=== PATIENT | male | born 1950 | race Caucasian/White ===

== ENCOUNTER → 2019-09-20 17:07 | Outpatient (CLI) | payer MEDICARE, SELFPAY ==
[2019-09-20 18:19] LABS: Add Manual Diff / Slide Review NO; Basophils Absolute Auto 0 /uL (0-100); Basophils Percent Auto 0.7 % (0-2); Eosinophils Absolute Auto 500 /uL (0-450); Eosinophils Percent Auto 7.5 % (2-4); Hematocrit 47.6 % (41-53); Hemoglobin 16.4 g/dL (13.5-17.5); Lymphocytes Absolute Auto 1700 /uL (1100-4500); Mean Corpuscular HGB Conc 34.4 % (30-36); Mean Corpuscular Hemoglobin 30.8 PG (26-34); Mean Corpuscular Volume 89.6 fL (80-100); Monocytes Absolute Auto 400 /uL (0-900); Monocytes Percent Auto 6.8 % (3-14); Neutrophils Absolute Auto 3400 /uL (1500-7000); Platelet Count 248 X10^3/uL (150-400); Red Blood Cell Count 5.31 X10^6/uL (4.5-5.9)
[2019-09-20 18:38] LABS: Alanine Aminotransferase 87 IU/L (<50); Albumin 4.7 g/dL (3.5-5.0); Albumin Globulin Ratio 1.5 (1.0-2.8); Alkaline Phosphatase 57 U/L (38-126); Aspartate Aminotransferase 49 IU/L (17-59); BUN Creatinine Ratio 22.7 (6-22); Bilirubin Total 0.7 mg/dL (0.2-1.3); Blood Urea Nitrogen 25 mg/dL (9-20); Carbon Dioxide 30 mmol/L (22-32); Chloride 97 mmol/L (98-107); Estimated Glomerular Filt Rate > 60.0 mL/min (>60); Globulin 3.2 g/dL (1.7-4.1); Glucose 111 mg/dL (80-110); HEMOLYSIS < 15 (0-50); Potassium 4.3 mmol/L (3.4-5.1); Sodium 137 mmol/L (137-145); Total Protein 7.9 g/dL (6.3-8.2)
== END ==
PROVIDERS: PCP Internal Medicine; Referring Provider Nurse Practitioner; Visit Provider Nurse Practitioner
DX: R25.2 Cramp and spasm (principal)
CPT/HCPCS: 36415; 80053; 85025

== ENCOUNTER → 2019-09-25 07:27 | Outpatient (CLI) | payer MEDICARE, SELFPAY ==
--- NOTE | 2019-09-25 07:29 | DI.US.S_ITS ---
PROCEDURE: US ABDOMEN LIMITED INDICATIONS: POssible R sided abd hernia TECHNIQUE: Real-time focused scanning was performed of the abdomen, with image documentation. COMPARISON: None. FINDINGS: Multiple grayscale images of the right abdomen were acquired focusing over the areas of patient symptoms involving the right flank and right lower quadrant. No suspicious mass lesions. No abdominal wall hernia is identified. The appendix was not visualized during imaging of the right lower quadrant. No free fluid or adenopathy. IMPRESSION: No sonographic abnormalities identified in the right flank or right lower quadrant to explain patient's symptoms. No abdominal wall herniations identified. Dictated by: Doroteo Alvarez M.D. on 09/25/2019 at 9:23 Approved by: Doroteo Alvarez M.D. on 09/25/2019 at 9:25
== END ==
PROVIDERS: PCP Internal Medicine; Referring Provider Nurse Practitioner; Visit Provider Nurse Practitioner
DX: K46.9 Unspecified abdominal hernia without obstruction or gangrene (principal)
CPT/HCPCS: 76705

== ENCOUNTER → 2019-10-04 07:01 | Outpatient (CLI) | payer MEDICARE, SELFPAY ==
[2019-10-04 09:00] LABS: Hemoglobin A1C% w Est Avg Glu 6.2 % (4.0-6.0)
[2019-10-04 09:01] LABS: Cholesterol 172 mg/dL (140-199); HDL Cholesterol 30 mg/dL (40-60); LDL Cholesterol Calculated 96 mg/dL (<100); Triglycerides 230 mg/dL (35-150)
== END ==
PROVIDERS: PCP Internal Medicine; Referring Provider Internal Medicine; Visit Provider Internal Medicine
DX: E11.9 Type 2 diabetes mellitus without complications (principal); E78.2 Mixed hyperlipidemia
CPT/HCPCS: 36415; 80061; 83036

== ENCOUNTER → 2020-03-09 11:40 | Outpatient (CLI) | payer MEDICARE, SELFPAY ==
[2020-03-10 21:17] LABS: COVID19 Sendout Not Detected (Not Detect)
== END ==
PROVIDERS: PCP Internal Medicine; Visit Provider Physician Assistant
DX: Z01.818 Encounter for other preprocedural examination (principal)
CPT/HCPCS: 87635

== ENCOUNTER 2020-03-12 09:58 | Day surgery (SDC) | payer MEDICARE, SELFPAY ==
--- NOTE | 2020-03-12 | PATH_ITS ---
[facility] Accession Number: [id number] . 01 Material submitted: . PART A: colon - ASCENDING COLON POLYPS PART B: colon - TRANSVERSE COLON POLYPS PART C: colon - DESCENDING COLON POLYP . 01 Clinical history: . A: ASCENDING COLON POLYPS X2 B: TRANSVERSE COLON POLYPS X2 . 02 Diagnosis: A. Ascending Colon, Polyps x2, Biopsies: Tubular adenomas. . B. Transverse Colon, Polyps x2, Biopsy: Tubular adenoma. Benign lymphoid aggregate. . C. Descending Colon, Polyp, Biopsy: Tubular adenoma. MRV 03/14/2020 1006 Local . 02 Electronically signed: . Gena Mike MD, Pathologist NPI- [id number] . 01 Gross description: . Part A: ASCENDING COLON POLYPS: Received in formalin are 2 fragment(s) of [place], soft tissue measuring 0.5 x 0.3 x 0.1 cm to 0.3 x 0.3 x 0.3 cm submitted entirely in 1 cassette(s) Part B: TRANSVERSE COLON POLYPS: Received in formalin are multiple fragment(s) of [place], soft tissue measuring 1.0 x 0.8 x 0.3 cm in aggregate submitted entirely in 1 cassette(s) Part C: DESCENDING COLON POLYP: Received in formalin are multiple fragment(s) of [place], soft tissue measuring 1.5 x 1.0 x 0.4 cm in aggregate submitted entirely in 1 cassette(s) /QB 03/13/2020 0812 Local . 02 Pathologist provided ICD-10: D12.2, D12.3, D12.4 . 02 CPT . 119778, 255840, 229746 Performed at: 01 [address] [address], [place], [place] [id number] MD Cortez Leon MD Phone: [phone] Performed at: 02 [facility] [address] [place] [id number] MD Gena Mike MD Phone: [phone]
--- NOTE | 2020-03-12 10:00 | P.HP_ITS ---
History of Present Illness History of Present Illness Date Patient Seen: 03/12/20 Chief complaint: SDC Narrative: Az[age]jbqgy[age]jqek-old male who is here for surveillance colonoscopy due to history of colon polyps. Prior colon report not available for review at this time. Colonoscopy was performed back in 2016 Meds Home Medications and Allergies Home Medications Medication Instructions Recorded Confirmed Type amlodipine PO 09/20/19 09/20/19 History aspirin 81 mg tablet,delayed 81 mg PO DAILY 09/20/19 09/20/19 History release cholecalciferol (vitamin D3) 50 2,000 unit PO DAILY 09/20/19 09/20/19 History mcg (2,000 unit) tablet hydrochlorothiazide PO 09/20/19 09/20/19 History lisinopril PO 09/20/19 09/20/19 History metoprolol tartrate PO 09/20/19 09/20/19 History multivitamin 1 tab PO DAILY 09/20/19 09/20/19 History omega-3 fatty acids PO 09/20/19 09/20/19 History omeprazole PO 09/20/19 09/20/19 History spironolactone PO 09/20/19 09/20/19 History terazosin PO 09/20/19 09/20/19 History cetirizine 10 mg PO DAILY 03/12/20 03/12/20 History magnesium 400 mg PO DAILY 03/12/20 03/12/20 History metformin 500 mg PO BID 03/12/20 03/12/20 History rosuvastatin 10 mg PO BEDTIME 03/12/20 03/12/20 History Allergies Allergy/AdvReac Type Severity Reaction Status Date / Time No Known Drug Allergies Allergy Verified 03/12/20 10:21 Exam Narrative Exam Narrative: General: Patient is obese, not in apparent distress Cardiovascular: Regular rate and rhythm, no murmurs, rubs, or gallops; no evidence of edema; no palpable abdominal aortic aneurysm Gastrointestinal: Normoactive bowel sounds, soft, nontender, nondistended, no re bound tenderness, no hepatosplenomegaly, no evidence of hernia Assessment & Plan Assessment & Plan narrative: 69-year-old male here for colon polyp surveillance. The patient is medically stable Regarding the procedure(s), the risks and potential complications, benefits, and alternatives (including not doing the procedure) were discussed with the patient. The risks include but are not limited to bleeding, splenic injury, infection, perforation which may require surgical intervention, missed lesions, and adverse reactions to sedative medicines. After a question and answer period, the patient agreed to proceed with the procedure(s) and gives informed consent.
[2020-03-12 10:28] VITALS: BP 137/74; PULSE 49; RESP 16; TEMP 36.6; O2SAT 96; BMI 28.8
[2020-03-12] MEDS: SODIUM CHLORIDE 0.9% 1,000 ML 70 ML IV (10:43)
--- NOTE | 2020-03-12 11:07 | P.OP.ENDO_ITS ---
Operative Date/Time/Diagnoses Date of procedure: 03/12/20 Procedure Notes Procedure in detail: Surgeon: Chaitanya Rooney MD Procedure: Colonoscopy with polypectomy Preoperative diagnosis: Colon polyp surveillance Postoperative diagnosis: Colon polyps x5, sigmoid diverticulosis, grade 1 internal hemorrhoids Medications: Conscious sedation using 4 mg IV of Midazolam and 100 mcg IV of Fentanyl Preanesthesia Assessment An H and P was performed/updated and the Px?s ASA class is 2. The procedure was discussed in detail with the patient. The potential risks and complications including infection, bleeding, missed lesions, perforation, need for surgery in case of perforation, prolonged hospital stay, and were explained. A brief question and answer period was allotted and once all questions were answered, informed consent was obtained. The patient was brought back to the procedure room and placed on standard monitoring. The patient?s vital signs were monitored continuously throughout the entire procedure. Prior to starting, a timeout was performed to confirm the patient?s identity, allergies, medications, and procedure. Procedure in detail The patient was placed in left lateral decubitus position and once adequate sedation was obtained a KAIDEN was performed. The digital rectal examination did not reveal any palpable lesions. The tip of the colonoscope was placed in the anal canal and advanced without difficulty all the way to the cecum which was identified by the appendiceal orifice and the ileocecal valve. Careful examination of all berg of the colon was performed with irrigation of any residual stool. In the ascending colon, there were 2 sessile polyps measuring 2 mm and were removed by means of cold Jumbo forceps with minimal bleeding. Resection and retrieval was complete. In the transverse colon there was a 6 mm sessile polyp which was removed by means of cold snare with minimal bleeding. Resection and retrieval was complete. There was also a 2 mm sessile polyp which was removed by means of cold Jumbo forceps with minimal bleeding. Resection and retrieval was complete In the descending colon, there was note of an 8 mm semi pedunculated polyp which was removed by means of cold snare with minimal bleeding. Resection and retrieval was complete. In the sigmoid colon there was note of few medium-sized diverticula Retroflexion was performed in the rectum which revealed grade 1 internal hemorrhoids The patient tolerated the procedure well and will be brought back to the recovery area to be discharged once criteria are met. The prep was judged to be good and adequate to identify polyps less than 5 mm. The withdrawal time was 14 minutes. The total physician intraservice time was 21 minutes. Complications There were no complications and estimated blood loss was minimal. Recommendations: Resume previous diet Continue outPx medications Follow up pathology results Repeat colonoscopy in 3 years. This may change depending on pathology results An emergency contact number was given to the patient for any complications r elated to the procedure
[2020-03-12] MEDS: MIDAZOLAM 5 MG/5 ML VIAL IV (11:10)
[2020-03-12] MEDS: fentaNYL 250 MCG/5 ML INJ IV (11:10)
[2020-03-12 11:34] VITALS: BP 113/80; PULSE 55; RESP 11; TEMP 35.9; O2SAT 94
[2020-03-12 11:38] VITALS: BP 118/79; PULSE 56; RESP 11; O2SAT 91
[2020-03-12 11:44] VITALS: BP 98/77; PULSE 52; RESP 11; O2SAT 92
[2020-03-12 11:50] VITALS: BP 125/82; PULSE 54; RESP 12; TEMP 36.1; O2SAT 96
--- NOTE | 2020-03-12 11:55 | SUR.PHASEII ---
Patient tolerates po. C/O gas pain.
[2020-03-12 11:57] VITALS: BP 120/84; PULSE 58; RESP 13; O2SAT 95
== END 2020-03-12 12:41 | disposition home or self-care (01) ==
PROVIDERS: PCP Internal Medicine; Referring Provider Internal Medicine Gastroenterology; Visit Provider Internal Medicine Gastroenterology
PROC: 0DJD8ZZ Inspection of Lower Intestinal Tract, Via Natural or Artificial Opening Endoscopic (ICD-10-PCS; CPT 45378; principal; 2020-03-12 11:00)
DX: Z12.11 Encounter for screening for malignant neoplasm of colon (principal); Z86.010 Personal history of colon polyps; K57.30 Diverticulosis of large intestine without perforation or abscess without bleeding; K64.0 First degree hemorrhoids; D12.2 Benign neoplasm of ascending colon; D12.3 Benign neoplasm of transverse colon; D12.4 Benign neoplasm of descending colon
CPT/HCPCS: 45385; 45380; J2250; J3010

== ENCOUNTER → 2020-10-01 14:32 | Outpatient (ROUT) | payer OTHER, SELFPAY ==
[2020-10-01 14:55] LABS: Add Manual Diff / Slide Review NO; Basophils Absolute Auto 0 /uL (0-100); Basophils Percent Auto 0.7 % (0-2); Eosinophils Absolute Auto 600 /uL (0-450); Hematocrit 47.1 % (41-53); Hemoglobin 16.5 g/dL (13.5-17.5); Lymphocytes Absolute Auto 1900 /uL (1100-4500); Lymphocytes Percent Auto 31.2 % (25-40); Mean Corpuscular Hemoglobin 31.7 PG (26-34); Mean Corpuscular Volume 90.4 fL (80-100); Monocytes Absolute Auto 400 /uL (0-900); Neutrophils Absolute Auto 3300 /uL (1500-7000); Neutrophils Percent Auto 52.1 % (50-75); Platelet Count 215 X10^3/uL (150-400); Red Blood Cell Count 5.21 X10^6/uL (4.5-5.9); White Blood Cell Count 6.2 X10^3/uL (4.5-11.0)
[2020-10-01 15:01] LABS: Alanine Aminotransferase 28 IU/L (<50); Albumin 4.4 g/dL (3.5-5.0); Albumin Globulin Ratio 1.6 (1.0-2.8); Alkaline Phosphatase 56 U/L (38-126); Aspartate Aminotransferase 25 IU/L (17-59); BUN Creatinine Ratio 18.8 (6-22); Bilirubin Total 0.7 mg/dL (0.2-1.3); Blood Urea Nitrogen 18 mg/dL (9-20); Calcium 9.4 mg/dL (8.4-10.2); Carbon Dioxide 30 mmol/L (22-32); Chloride 102 mmol/L (98-107); Cholesterol 198 mg/dL (140-199); Estimated Glomerular Filt Rate > 60.0 mL/min (>60); Globulin 2.7 g/dL (1.7-4.1); Glucose 113 mg/dL (80-110); HDL Cholesterol 31 mg/dL (40-60); HEMOLYSIS < 15 (0-50); Potassium 3.8 mmol/L (3.4-5.1); Sodium 138 mmol/L (137-145); Total Protein 7.1 g/dL (6.3-8.2); Triglycerides 423 mg/dL (35-150)
[2020-10-01 15:27] LABS: TSH w/ Reflex to FT4 1.35 uIU/mL (0.47-4.68)
== END ==
PROVIDERS: PCP Internal Medicine; Visit Provider Internal Medicine
DX: E11.69 Type 2 diabetes mellitus with other specified complication (principal); I10 Essential (primary) hypertension; E78.2 Mixed hyperlipidemia
CPT/HCPCS: 80053; 80061; 84443; 85025

== ENCOUNTER 2021-01-20 13:51 | Observation (INO) | payer OTHER, SELFPAY ==
[2021-01-20] VITALS (13 sets, daily range): BP systolic 137–160; BP diastolic 74–92; PULSE 58–67; RESP 8–20; TEMP 36.2–36.9; O2SAT 92–97; BMI 33.0
--- NOTE | 2021-01-20 14:02 | DI.RAD.S_ITS ---
PROCEDURE: XR CHEST 1V INDICATIONS: chest pain TECHNIQUE: One view of the chest was acquired. COMPARISON: None. FINDINGS: Surgical changes and devices: None. Lungs and pleura: Lungs are clear. No pleural effusions or pneumothorax. Mediastinum: Mediastinal contours appear normal. Heart size is normal. Bones and chest wall: No suspicious bony lesions. Overlying soft tissues appear unremarkable. IMPRESSION: No acute process. Dictated by: Lucy Bingham M.D. on 01/20/2021 at 14:17 Approved by: Lucy Bingham M.D. on 01/20/2021 at 14:17
[2021-01-20 14:21] LABS: Add Manual Diff / Slide Review NO; Basophils Absolute Auto 100 /uL (0-100); Basophils Percent Auto 0.8 % (0-2); Eosinophils Absolute Auto 500 /uL (0-450); Eosinophils Percent Auto 6.7 % (2-4); Hematocrit 47.7 % (41-53); Hemoglobin 16.6 g/dL (13.5-17.5); Lymphocytes Absolute Auto 1900 /uL (1100-4500); Lymphocytes Percent Auto 28.3 % (25-40); Mean Corpuscular HGB Conc 34.9 % (30-36); Mean Corpuscular Hemoglobin 31.2 PG (26-34); Mean Corpuscular Volume 89.5 fL (80-100); Monocytes Absolute Auto 400 /uL (0-900); Neutrophils Absolute Auto 4000 /uL (1500-7000); Neutrophils Percent Auto 58.2 % (50-75); Platelet Count 217 X10^3/uL (150-400); Red Blood Cell Count 5.33 X10^6/uL (4.5-5.9); Red Cell Distribution Width 13.7 % (11.6-14.8); White Blood Cell Count 6.9 X10^3/uL (4.5-11.0)
[2021-01-20 14:35] LABS: Alanine Aminotransferase 40 IU/L (<50); Albumin 4.3 g/dL (3.5-5.0); Albumin Globulin Ratio 1.5 (1.0-2.8); Alkaline Phosphatase 58 U/L (38-126); Aspartate Aminotransferase 35 IU/L (17-59); BUN Creatinine Ratio 19.1 (6-22); Bilirubin Total 0.6 mg/dL (0.2-1.3); Blood Urea Nitrogen 17 mg/dL (9-20); Calcium 9.4 mg/dL (8.4-10.2); Carbon Dioxide 27 mmol/L (22-32); Chloride 103 mmol/L (98-107); Creatine Kinase 305 U/L (55-170); Estimated Glomerular Filt Rate > 60.0 mL/min (>60); Globulin 2.9 g/dL (1.7-4.1); Glucose 147 mg/dL (80-110); HEMOLYSIS < 15 (0-50); Lipase 122 U/L (23-300); Sodium 139 mmol/L (137-145); Total Protein 7.2 g/dL (6.3-8.2)
[2021-01-20 14:50] LABS: CKMB % Relative Index 0.9 % (1.5-5.0); Creatine Kinase MB 2.63 ng/mL (<2.37)
--- NOTE | 2021-01-20 14:57 | ED_ITS ---
HPI - General Adult General Chief complaint: Dizziness Stated complaint: referred by for lightheadedness, numb L arm Time Seen by Provider: 01/20/21 14:04 Source: patient Mode of arrival: Ambulatory Limitations: no limitations History of Present Illness HPI narrative: Patient is a 70-year-old [id number] diabetic with a history of hypertension who is here for evaluation of feeling lightheaded and also tingling in his left shoulder and left arm. He states the symptoms have been consistent for the past 2 days. Not worse with palpation or movement or breathing. Is afebrile. No prior cardiac history that he knows of. Not on anticoagulation except for aspirin. Was instructed to come to the emergency department for further evaluation of his symptoms. Related Data Home Medications Medication Instructions Recorded Confirmed amlodipine 5 mg PO DAILY 09/20/19 03/12/20 aspirin 81 mg tablet,delayed 81 mg PO DAILY 09/20/19 03/12/20 release cholecalciferol (vitamin D3) 50 2,000 unit PO DAILY 09/20/19 03/12/20 mcg (2,000 unit) tablet hydrochlorothiazide 25 mg PO DAILY 09/20/19 03/12/20 lisinopril 40 mg PO DAILY 09/20/19 03/12/20 metoprolol tartrate 50 mg PO BID 09/20/19 03/12/20 multivitamin 1 tab PO DAILY 09/20/19 03/12/20 omega-3 fatty acids 1 cap PO DAILY 09/20/19 09/20/19 omeprazole 20 mg PO DAILY 09/20/19 03/12/20 spironolactone 25 mg PO DAILY 09/20/19 03/12/20 terazosin 2 mg PO DAILY 09/20/19 03/12/20 cetirizine 10 mg PO DAILY 03/12/20 03/12/20 magnesium 400 mg PO DAILY 03/12/20 03/12/20 metformin 500 mg PO BID 03/12/20 03/12/20 rosuvastatin 10 mg PO BEDTIME 03/12/20 03/12/20 Allergies Allergy/AdvReac Type Severity Reaction Status Date / Time No Known Drug Allergies Allergy Verified 03/12/20 10:21 Review of Systems Constitutional Constitutional: Denies fever(s) and Denies headache(s) ENT Ears, Nose, Mouth, and Throat: Denies headache(s) Cardiovascular Cardiovascular: Denies chest pain, Reports radiating jaw, neck or arm pain and Denies dyspnea Respiratory Respiratory: Denies cough and Denies dyspnea Gastrointestinal Gastrointestinal: Denies abdominal pain and Denies nausea Musculoskeletal Comments: Discomfort in left shoulder Integumentary/Breasts Skin/Breast: Denies rash Neurologic Neurologic: Denies headache(s) Comments: Discomfort left shoulder tingling left hand Hematologic/Lymphatic On Anticoagulants: No Allergic/Immunologic Allergic/Immunologic: Reports system reviewed and no additional complaints, except as documented Patient History Medical History Diabetes Hypertension Social History household members: spouse Smoking Status: Former smoker alcohol intake: current Smoking Status: Former smoker alcohol intake frequency: holidays/special occasions only Substance Use Type: does not use Exam Initial Vital Signs Initial Vital Signs: Vital Signs Pulse Rate 63 01/20/21 13:56 Respiratory Rate 18 01/20/21 13:56 Blood Pressure 160/84 H 01/20/21 13:56 Pulse Oximetry 97 01/20/21 13:56 Const General: cooperative Limitations: mental status not altered HENMT Head: normal to inspection and normocephalic Resp Effort & Inspection: normal respiratory effort Auscultation: clear to auscultation bilaterally Cardio Rate: regular rate Rhythm: regular rhythm Skin Lesions: no lesions Rashes: no rashes Neuro General: patient alert and patient awake Cognition: normal cognition Speech: speech normal Extrem General: capillary refill normal Psych Appearance: grossly normal and well kempt Scores GCS Bill coma scale eye opening: Spontaneous Bill coma scale verbal response: Orientated Independence coma scale motor response: Obey commands Independence coma scale total score: 15 HEART Score Heart Score history: Slightly Suspicious Heart Score EKG: Non-Specific repolarization disturbance Heart Score Age: > or = 65 years old Heart Score risk factors: 1-2 risk factors Heart Score troponin: < or = to normal limit Heart Score Total: 4 Course Orders Ordered: ED Orders 01/20/21 14:02 XR chest 1V Stat EKG-12 Lead Stat 01/20/21 14:13 Complete Blood Count AUTO DIFF Stat Comprehensive Metabolic Panel Stat Lipase Stat Troponin & CK Cardiac Panel Stat 01/20/21 15:50 COVID19 - ADMIT ([employer]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 swab/PCR) Stat Discontinued Medications Aspirin (Aspirin 81 Mg Chew Tab) 324 mg PO NOW ONE Stop: 01/20/21 15:09 Last Admin: 01/20/21 15:18 Dose: 324 mg Documented by: CTRCATRACHITO Vital Signs Vital signs: Vital Signs - 8 hr 01/20/21 13:56 01/20/21 14:22 01/20/21 14:30 Temperature Pulse Rate 63 65 63 Respiratory Rate 18 16 8 L Blood Pressure 160/84 H Pulse Oximetry 97 93 92 01/20/21 15:00 01/20/21 15:30 01/20/21 15:51 Temperature 98.5 F Pulse Rate 67 65 61 Respiratory Rate 16 17 14 Blood Pressure 150/74 H Pulse Oximetry 92 93 94 Medical Decision Making Lab Data Lab results reviewed: Yes I reviewed the patient's lab results. Result diagrams: 01/20/21 14:13 01/20/21 14:13 Labs: Lab Results 01/20/21 01/20/21 Range/Units 14:13 14:13 WBC 6.9 (4.5-11.0) X10^3/uL RBC 5.33 (4.5-5.9) X10^6/uL Hgb 16.6 (13.5-17.5) g/dL Hct 47.7 (41-53) % MCV 89.5 (80-100) fL MCH 31.2 (26-34) PG MCHC 34.9 (30-36) % RDW 13.7 (11.6-14.8) % Plt Count 217 (150-400) X10^3/uL Neut % (Auto) 58.2 (50-75) % Lymph % (Auto) 28.3 (25-40) % [place] % (Auto) 6.0 (3-14) % Eos % (Auto) 6.7 H (2-4) % Baso % (Auto) 0.8 (0-2) % Neut # (Auto) 4000 (8397-1646) /uL Lymph # (Auto) 1900 (0013-6706) /uL [place] # (Auto) 400 (0-900) /uL Eos # (Auto) 500 H (0-450) /uL Baso # (Auto) 100 (0-100) /uL Sodium 139 (137-145) mmol/L Potassium 4.0 (3.4-5.1) mmol/L Chloride 103 (98-107) mmol/L Carbon Dioxide 27 (22-32) mmol/L BUN 17 (9-20) mg/dL Creatinine 0.89 (0.66-1.25) mg/dL Estimated GFR > 60.0 (>60) mL/min BUN/Creatinine Ratio 19.1 (6-22) Glucose 147 H (80-110) mg/dL Calcium 9.4 (8.4-10.2) mg/dL Total Bilirubin 0.6 (0.2-1.3) mg/dL AST 35 (17-59) IU/L ALT 40 (<50) IU/L Alkaline Phosphatase 58 (38-126) U/L Total Creatine Kinase 305 H (55-170) U/L CK-MB (CK-2) 2.63 H (<2.37) ng/mL CK-MB (CK-2) Rel Index 0.9 L (1.5-5.0) % Troponin I 0.020 (0.01-0.034) ng/mL Total Protein 7.2 (6.3-8.2) g/dL Albumin 4.3 (3.5-5.0) g/dL Globulin 2.9 (1.7-4.1) g/dL Albumin/Globulin Ratio 1.5 (1.0-2.8) Lipase 122 (23-300) U/L Imaging Data Chest x-ray: Radiologist's Impression: [address] [id number] ReportSigned Patient: Shabbir Trent R#: [id number]: 1950cct:[id number]/Sex: 70 / MDate of Service: 01/20/21Loc: EDAccession Number: [id number] Procedure: XR chest 1V Ordering Provider: Syd Willingham D.O. PROCEDURE: XR CHEST 1V INDICATIONS: chest pain TECHNIQUE: One view of the chest was acquired. COMPARISON: None. FINDINGS: Surgical changes and devices: None. Lungs and pleura: Lungs are clear. No pleural effusions or pneumothorax. Mediastinum: Mediastinal contours appear normal. Heart size is normal. Bones and chest wall: No suspicious bony lesions. Overlying soft tissues appear unremarkable. IMPRESSION: No acute process. Dictated by: Lucy Bingham M.D. on 01/20/2021 at 14:17 Approved by: Lucy Bingham M.D. on 01/20/2021 at 14:17 ECG Data Attestation: I personally reviewed and interpreted this ECG as follows: Prior ECG tracings: not available for review Interpretation: Sinus rhythm Ventricular rate is 67 Left axis deviation Occasional PAC LVH Nonspecific ST T wave changes MDM Narrative Medical decision making narrative: Nonspecific changes on the EKG, troponin not above 99th percentile. Was given aspirin. Has a heart score 4. Discussed the case with the patient and hospitalist and will admit for risk stratification testing. They both expressed understanding and agreement. Discharge Plan Departure Patient Disposition: Admitted as Observation Clinical Impression: Lightheadedness, Hypertension
[2021-01-20] MEDS: ASPIRIN 81 MG CHEW TAB 324 MG PO (15:18)
--- NOTE | 2021-01-20 16:55 | DI.NM.S_ITS ---
PROCEDURE: NM SHANIQUA PERF SPECT SINGLE STUDY Exercise myocardial perfusion SPECT with gated imaging and ejection fraction RADIOPHARMACEUTICAL: 22.6 mCi Tc-99m sestamibi IV at peak exercise. INDICATIONS: chest pain TECHNIQUE: Radiopharmaceutical was injected at peak stress test. SPECT images were obtained, with perfusion images in short axis, horizontal long axis, and vertical long axis views. Gated images were reviewed using [employer] software. COMPARISON: None. CARDIAC STRESS: A standard Iain treadmill exercise tolerance test was performed by the patient under the supervision of an attending staff. The patient exercised for 7 minutes and 30 seconds; functional aerobic impairment (RAÚL) is -16%. Hemodynamic data: There is normal blood pressure and heart response to exercise. Patient achieved 88% of maximum predicted heart rate. Symptoms: Patient denied anginal chest pain during exercise. EKG: No diagnostic changes of ischemia; no ectopy. FINDINGS: Raw data: There is good labeling of myocardium by radiotracer. No significant motion artifacts. Left ventricular function: Gated images demonstrate normal left ventricle wall thickening. No segmental wall motion abnormalities. Left ventricle end diastolic volume is 143 mL. Left ventricle stress ejection fraction is 66%; normal values are above 45%. Myocardial perfusion: There is normal distribution of activity in the left and right ventricular myocardium, without focal perfusion defects. IMPRESSION: Low risk, normal treadmill stress only nuclear study. 1) No perfusion evidence of ischemia or infarction. 2) Normal left ventricular size, wall motion, and systolic function (EF post stress 66%). 3) No ECG evidence of ischemia. 4) No angina during the study. 5) Above average exercise tolerance (10.1 METs, RAÚL -16%). Target heart rate achieved. Appropriate BP response to exercise. 6) No prior nuclear stress test available for comparison. Dictated by: Felipa Pope MD on 01/21/2021 at 17:17 Approved by: Felipa Pope MD on 01/21/2021 at 17:19
[2021-01-20 17:11] LABS: COVID19 - ADMIT (NP swab/PCR) Negative (Negative)
--- NOTE | 2021-01-20 18:16 | P.HP_ITS ---
History of Present Illness History of Present Illness Date Patient Seen: 01/20/21 Time Patient Seen: 16:17 Chief complaint: referred by for lightheadedness, numb L arm Narrative: Mr. Trent is a 70M with PMH DM, HTN, HL who is coming in with left shoulder pain, lightheadedness, left arm and hand tingling. He states that this started two days ago. He has not had any shortness of breath. No upper or lower extremity weakness. No radiation of pain. No fevers/cough. No facial droop. No lower extremity edema. No nausea, vomiting, diarrhea. He notes he did use a mo wer to mow neighbors grass and he got very winded which is unlike him. He has had a remote stress test years ago, but nothing done recently. He is a former smoker but quit over twenty years ago. His dad has a history of CAD. In the ER, vitals were notable for hypertension with BP in 150s-160s. WBC 6.9, creatinine 0.89, trop 0.02. EKG showed LVH, nonspecific ST changes with no acute ischemia. Cxray with no acute process. He was given aspirin and admitted for further treatment. Patient History Medical History Diabetes Hypertension Family & Social History Family History Father Coronary artery disease Social History: household members spouse Prior Living Arrangements House Safety & Behavioral: Feels Safe in Current Yes Environment Been Physically Hurt or No Threatened By a Person Suicidal Ideation Description None Suicide Plan Description No Plan Tobacco & Substance use: Smoking Status Former smoker alcohol intake current alcohol intake frequency holiday/special occasion Substance Use Type does not use Meds Home Medications and Allergies Home Medications Medication Instructions Recorded Confirmed Type amlodipine 5 mg PO DAILY 09/20/19 01/20/21 History aspirin 81 mg tablet,delayed 81 mg PO DAILY 09/20/19 01/20/21 History release cholecalciferol (vitamin D3) 50 2,000 unit PO DAILY 09/20/19 01/20/21 History mcg (2,000 unit) tablet hydrochlorothiazide 25 mg PO DAILY 09/20/19 01/20/21 History lisinopril 40 mg PO DAILY 09/20/19 01/20/21 History metoprolol tartrate 50 mg PO BID 09/20/19 01/20/21 History multivitamin 1 tab PO DAILY 09/20/19 01/20/21 History omega-3 fatty acids 1 cap PO DAILY 09/20/19 01/20/21 History omeprazole 20 mg PO BID 09/20/19 01/20/21 History spironolactone 25 mg PO DAILY 09/20/19 01/20/21 History terazosin 2 mg PO DAILY 09/20/19 01/20/21 History cetirizine 10 mg PO DAILY 03/12/20 01/20/21 History magnesium 400 mg PO DAILY 03/12/20 01/20/21 History rosuvastatin 10 mg PO BEDTIME 03/12/20 01/20/21 History Allergies Allergy/AdvReac Type Severity Reaction Status Date / Time No Known Drug Allergies Allergy Verified 03/12/20 10:21 Review of Systems Review of Systems Narrative: 14 systems reviewed and negative aside from what is noted in HPI Exam Vital Signs (past 8 hours): - 01/20/21 13:56 01/20/21 14:22 01/20/21 14:30 Temperature Pulse Rate 63 65 63 Respiratory Rate 18 16 8 L Blood Pressure 160/84 H Pulse Oximetry 97 93 92 01/20/21 15:00 01/20/21 15:30 01/20/21 15:51 Temperature 98.5 F Pulse Rate 67 65 61 Respiratory Rate 16 17 14 Blood Pressure 150/74 H Pulse Oximetry 92 93 94 01/20/21 16:00 01/20/21 16:30 01/20/21 16:55 Temperature 97.1 F L Pulse Rate 63 60 61 Respiratory Rate 20 17 20 Blood Pressure 137/90 Pulse Oximetry 94 92 93 01/20/21 16:56 Temperature Pulse Rate 58 L Respiratory Rate 18 Blood Pressure 137/84 Pulse Oximetry 93 Oxygen Delivery Method Room Air Oxygen Flow Rate 0 Narrative Exam Narrative: GEN: no acute distress HEENT: PERRL, moist mucous membranes NECK: no JVD, trachea midline CV: RRR, no murmurs PULM: clear bilaterally, no wheezes, rhonchi, rales ABD: soft, nontender, nondistended, no organomegaly, normal bowel sounds EXT: warm and well perfused with no edema NEURO: AAOx3, moving all extremities with no gross deficits SKIN: no rashes noted PSYCH: pleasant, cooperative Objective Labs Result Diagrams: 01/20/21 14:13 01/20/21 14:13 Labs: Laboratory Results - last 24 hr 01/20/21 01/20/21 01/20/21 14:13 14:13 15:54 WBC 6.9 RBC 5.33 Hgb 16.6 Hct 47.7 MCV 89.5 MCH 31.2 MCHC 34.9 RDW 13.7 Plt Count 217 Neut % (Auto) 58.2 Lymph % (Auto) 28.3 [place] % (Auto) 6.0 Eos % (Auto) 6.7 H Baso % (Auto) 0.8 Neut # (Auto) 4000 Lymph # (Auto) 1900 [place] # (Auto) 400 Eos # (Auto) 500 H Baso # (Auto) 100 Sodium 139 Potassium 4.0 Chloride 103 Carbon Dioxide 27 BUN 17 Creatinine 0.89 Estimated GFR > 60.0 BUN/Creatinine Ratio 19.1 Glucose 147 H Calcium 9.4 Total Bilirubin 0.6 AST 35 ALT 40 Alkaline Phosphatase 58 Total Creatine Kinase 305 H CK-MB (CK-2) 2.63 H CK-MB (CK-2) Rel Index 0.9 L Troponin I 0.020 Total Protein 7.2 Albumin 4.3 Globulin 2.9 Albumin/Globulin Ratio 1.5 Lipase 122 SARS-CoV-2 (PCR) Negative Assessment & Plan Assessment & Plan narrative: Mr. Trent is a 70M with PMH DM, HTN, HL who comes in with left shoulder pain, dizziness, left hand numbness concerning for possible cardiac etiology. 1. Left shoulder pain -also with associated dizziness, and left hand numbness -EKG with nonspecific ST changes, no acute ischemia -etiology is possibly cardiac with HEART score of 4 -other etiology is possible MSK, though this is not like his previous shoulder pain -given poor exercise tolerance that is new, will order echo -ordered for troponin trending -aspirin and statin ordered -plan for stress test in AM -lightheadedness may be seconary to medications, will hold diuretics for tonight 2. Diabetes, not on insulin -ordered low dose insulin sliding scale -check glucose achs 3. HTN -continue lisinopril, amlodipine -hold hctz, spironolactone for now -hold metoprolol for nuc stress test 4. HL -ordered atorvastatin as above DVT ppx: lovenox sc DIET: cardiac, diabetic IVF: none CODE: Full, proxy is spouse Edna Page VTE Deep Vein Thrombosis/Pulmonary Embolism Present on Admission: No MIPS - Admit I confirm the patient?s Advance Care Plan is present, Code status is documented, Surrogate decision maker is in patient?s record [If Yes, STOP here]: Yes
--- NOTE | 2021-01-20 18:19 | DI.ECHO.S_ITS ---
[facility] +---------+ [facility] +---------+ : : [address] : : : : [id number] : : : : Phone: [phone] Echocardiogram Report + + :Name: DANI ALONSO Study Date: 01/21/2021 Height: 70 in : :[facility] ReadingLocation: Weight: 230 lb : : Gender: Male BSA: 2.2 m2 : :: 1950 Age: 70 yrs BP: 137/84 mmHg: :Reason For Study: SHORTNESS OF BREATH : :Ordering Physician: DELMAR, : :NEDRA Performed By: Monalisa Yip : :Referring: NEDRA JACOBSEN : + + Interpretation Summary The left ventricle is normal in size. The ejection fraction is estimated to be 55-60%. Diastolic parameters suggest a relaxation abnormality of the left ventricle, consistent with probable normal filling pressures. Cannot rule out hypokinesis along the inferolateral wall. There appears to be appropriate augmentation of myocardium on parasternal short axis but 3-apical views show possible hypokinesis. Consider ischemic evaluation if clinically appropriate The right ventricle is grossly normal size. The right ventricular systolic function is normal. Pulmonary artery pressures cannot be estimated because of the lack of a measurable TR jet velocity but the IVC suggests a CVP of around 3 mmHg. The left atrial size is normal. Right atrial size is normal. . There is no significant valvular heart disease. The aortic root is mildly dilated. The ascending aorta is mildly enlarged. Procedure: A two-dimensional transthoracic echocardiogram with color flow and Doppler was performed. The study quality was technically adequate. There is no prior echocardiogram noted for this patient. The patient was in sinus rhythm with heart rates between 56-66 bpm during the exam. Left Ventricle: The left ventricle is normal in size. There is mild concentric left ventricular hypertrophy. Left ventricular systolic function is normal. The ejection fraction is estimated to be 55-60%. Cannot rule out hypokinesis along the inferolateral wall. There appears to be appropriate augmentation of myocardium on parasternal short axis but 3-apical views show possible hypokinesis. Consider ischemic evaluation if clinically appropriate. Diastolic parameters suggest a relaxation abnormality of the left ventricle, consistent with probable normal filling pressures. Right Ventricle: The right ventricle is grossly normal size. The right ventricular systolic function is normal. Atria: The left atrial size is normal. Right atrial size is normal. There is no Doppler evidence for an interatrial shunt. Mitral Valve: The mitral valve is normal in structure and function. There is trace mitral regurgitation. Aortic Valve: The aortic valve is trileaflet. The aortic valve opens well. There is no aortic valve stenosis. No aortic regurgitation is present. Tricuspid Valve: The tricuspid valve is normal in structure and function. Pulmonary artery pressures cannot be estimated because of the lack of a measurable TR jet velocity but the IVC suggests a CVP of around 3 mmHg. There is trace tricuspid regurgitation. Pulmonic Valve: The pulmonic valve leaflets are thin and pliable; valve motion is normal. There is mild pulmonic regurgitation. There is no significant valvular heart disease. Great Vessels: The aortic root is mildly dilated. The ascending aorta is mildly enlarged. The IVC is of normal diameter and collapses greater than 50% with a sniff. This suggests a low right atrial pressure of 3 mm Hg. Pericardium/ Pleura There is no pericardial effusion. There is no pleural effusion. MMode/2D Measurements & Calculations LVIDd: 5.5 cm LVOT diam: 2.1 cm LVIDs: 3.9 cm Ao root diam: 4.1 cm FS: 28.8 % asc Aorta Diam: 3.7 cm EPSS: 1.0 cm Ao Arch Diam (Prox Trans): 2.9 cm IVSd: 1.1 cm LVPWd: 1.2 cm LV gonsalez. diameter/BSA (cm/m^2): 2.5 LV sys. diameter/BSA (cm/m^2): 1.8 LA A2 area: 20.7 cm2 RA long axis: 5.6 cm LA A4 area: 16.2 cm2 RA area: 13.4 cm2 LA length (vol): 5.1 cm RA vol: 27.5 ml LA vol: 56.4 ml RA : 12.4 ml/m2 LA vol index: 25.5 ml/m2 IVC diam: 1.8 cm RVD1 (basal): 4.0 cm TAPSE: 1.9 cm Doppler Measurements & Calculations Ao V2 max: 141.0 cm/sec LVOT Max Francisco: 102.1 cm/sec Ao V2 mean: 100.9 cm/sec LV V1 max P.2 mmHg Ao max P.0 mmHg LV V1 VTI: 21.5 cm Ao mean P.6 mmHg RENETTA(I,D): 2.5 cm2 Ao V2 VTI: 29.3 cm RENETTA(V,D): 2.5 cm2 sev ratio: 0.73 RENETTA indexed to BSA (cm^2/m^2): 1.1 MV E max francisco: 42.0 cm/sec PA V2 max: 128.4 cm/sec MV A max francisco: 72.2 cm/sec PA V2 mean: 90.1 cm/sec MV E/A: 0.58 PA mean P.6 mmHg Med Peak E' Francisco: 4.0 cm/sec PA pr(Accel): 29.2 mmHg E/E' med: 10.5 Lat Peak E' Francisco: 4.9 cm/sec E/E' lat: 8.5 E/e' average: 9.5 MV dec time: 0.32 sec SV(LVOT): 73.6 ml Reading Physician:08:58 AM
[2021-01-20 20:39] LABS: Troponin I 0.018 ng/mL (0.01-0.034)
[2021-01-20] MEDS: PANTOPRAZOLE DR 20 MG TABLET PO (21:40)
[2021-01-20] MEDS: ATORVASTATIN 20 MG TABLET 40 MG PO (21:40)
[2021-01-21 04:46] VITALS: BP 147/84; PULSE 70; RESP 16; TEMP 36.1; O2SAT 93
[2021-01-21] MEDS: PANTOPRAZOLE DR 20 MG TABLET PO (05:23)
[2021-01-21 05:28] LABS: Add Manual Diff / Slide Review NO; Basophils Absolute Auto 100 /uL (0-100); Basophils Percent Auto 0.7 % (0-2); Eosinophils Absolute Auto 500 /uL (0-450); Eosinophils Percent Auto 7.5 % (2-4); Hematocrit 49.4 % (41-53); Lymphocytes Absolute Auto 2400 /uL (1100-4500); Lymphocytes Percent Auto 34.6 % (25-40); Mean Corpuscular HGB Conc 34.4 % (30-36); Mean Corpuscular Hemoglobin 31.2 PG (26-34); Mean Corpuscular Volume 90.9 fL (80-100); Monocytes Absolute Auto 400 /uL (0-900); Monocytes Percent Auto 5.9 % (3-14); Neutrophils Absolute Auto 3600 /uL (1500-7000); Neutrophils Percent Auto 51.3 % (50-75); Platelet Count 211 X10^3/uL (150-400); Red Blood Cell Count 5.44 X10^6/uL (4.5-5.9); Red Cell Distribution Width 13.3 % (11.6-14.8); White Blood Cell Count 7.1 X10^3/uL (4.5-11.0)
[2021-01-21 05:40] LABS: BUN Creatinine Ratio 16.5 (6-22); Blood Urea Nitrogen 17 mg/dL (9-20); Calcium 9.6 mg/dL (8.4-10.2); Carbon Dioxide 32 mmol/L (22-32); Chloride 100 mmol/L (98-107); Estimated Glomerular Filt Rate > 60.0 mL/min (>60); Glucose 124 mg/dL (80-110); HEMOLYSIS < 15 (0-50); Potassium 3.8 mmol/L (3.4-5.1); Sodium 139 mmol/L (137-145)
[2021-01-21 05:52] LABS: Troponin I 0.019 ng/mL (0.01-0.034)
[2021-01-21 07:50] VITALS: O2SAT 92
[2021-01-21 08:03] VITALS: BP 133/86; PULSE 66; RESP 16; TEMP 36.2; O2SAT 93
[2021-01-21] MEDS: ASPIRIN EC 81 MG TABLET PO (08:42)
[2021-01-21] MEDS: LORATADINE 10 MG TABLET PO (08:43)
[2021-01-21] MEDS: lisinopriL 20 MG TABLET 40 MG PO (08:43)
[2021-01-21] MEDS: MULTIVITAMIN 1 TABLET 1 TAB PO (08:43)
[2021-01-21] MEDS: CHOLECALCIFEROL (VITAMIN D3) 1,000 UNIT TABLET 2000 UNIT PO (08:43)
[2021-01-21] MEDS: AMLODIPINE 5 MG TABLET PO (08:43)
[2021-01-21] MEDS: TERAZOSIN 1 MG CAPSULE 2 MG PO (09:02)
[2021-01-21] MEDS: SODIUM CHLORIDE 0.9% FLUSH 10 ML IV (09:03)
--- NOTE | 2021-01-21 10:29 | CM.DANOTE ---
DCP: Case received, EMR reviewed and met with patient. Introduced self and role. Was able to obtain information from patient regarding his baseline activity status prior to hospitalization. DCP assessment completed with information currently available. Patient is a 70 year old male who admitted yesterday afternoon to the care of the hospitalist team. PCP: Dr. Mena. Payer: confirmed: [facility]. Patient came to the hospital via private vehicle secondary to having some lightheadedness, as well as some numbness and tingling to his left arm, along with pain. Patient is here for a cardiac work up. His EKG noted no ischemia. He is going to have a stress test today, which is scheduled. Patient also had echo. Met with patient in his room, as well as during team rounds. He is alert and oriented, pleasant. He stated, the symptoms were resolving. Patient resides here in [place] with his spouse, Edna. He is independent at his baseline, drives, uses no DME. P: DCP to continue to follow. Plan is for patient to go home today, but will depend upon stress test results. Alize Fisher RN/Parenting Skills Instructor
[2021-01-21 11:26] VITALS: BP 141/79; PULSE 87; RESP 16; TEMP 36.1; O2SAT 92
--- NOTE | 2021-01-21 15:23 | PC.NURSE ---
There was some confusion over pt's blood glucose this am. Blood sugar check was not passed along to PROOF OPERATOR. Glucose was checked after pt had eaten bkft. The results were 149. He doesn't usually take insulin. And after his bkft he was npo for stress test. Therefore his ssc was not given. Pt returned from stress test and glucose checked and was 96 before eating a small amt for a late lunch.
[2021-01-21 15:39] VITALS: BP 149/93; PULSE 100; RESP 17; TEMP 36.4; O2SAT 91
--- NOTE | 2021-01-21 15:45 | PC.NURSE ---
Addendum entered by Corina Ambrose R.N. 01/21/21 18:21: Pt dresses self and telemetry and iv discontinued. Spouse has arrived to transport pt and receive discharge instructions. Pt and pt's spouse were given discharge instructions in written and verbal format. All personal belongings are accounted for. Pt prefers to ambulate to vehicle and was accompanied by this proposal writer and by pt's S.O. Pt left hospital in stable condition. Addendum entered by Corina Ambrose R.N. 01/21/21 17:08: Dr. Schumacher in to see patient and discuss findings of stress test. Discussion between this proposal writer and MD if pt is required to have part two of this exam and MD replies is not needed as stress portion today was benign. Pt taking evening meal well prior to discharge. Spouse has left the building to attend to animals at home. Will discharge pt as per MD when spouse returns to room and pt completes meal. Original Note: Pt resting quietly in bed with spouse at bedside. 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 Pt denies chest pain. States is hopeful will be discharged to home this evening. Awaiting directive from MD.
[2021-01-21] MEDS: INSULIN LISPRO 100 UNIT/ML 3ML VIAL SUBCUT (16:45)
--- NOTE | 2021-01-21 18:39 | PM.DS.1 ---
History of Present Illness History of Present Illness Chief complaint: referred by for lightheadedness, numb L arm Narrative: Mr. Trent is a 70M with PMH DM, HTN, HL who is coming in with left shoulder pain, lightheadedness, left arm and hand tingling. He states that this started two days ago. He has not had any shortness of breath. No upper or lower extremity weakness. No radiation of pain. No fevers/cough. No facial droop. No lower extremity edema. No nausea, vomiting, diarrhea. He notes he did use a mower to mow neighbors grass and he got very winded which is unlike him. He has had a remote stress test years ago, but nothing done recently. He is a former smoker but quit over twenty years ago. His dad has a history of CAD. In the ER, vitals were notable for hypertension with BP in 150s-160s. WBC 6.9, creatinine 0.89, trop 0.02. EKG showed LVH, nonspecific ST changes with no acute ischemia. Cxray with no acute process. He was given aspirin and admitted for further treatment. Discharge Providers Provider Date of admission: 01/20/21 16:43 Discharge Date: 01/21/21 Primary care physician: Luis Mena MD Discharge provider: Brandon Schumacher MD Summary Hospital Course Discharge Diagnosis: 1. Left shoulder pain 2. Diabetes 3. HTN 4. HL Hospital Course: Mr. Trent presented with left shoulder pain and left hand numbness. He had negative troponins. EKG showed no ischemic changes. ECHO showed no acute abnormalities. He had a stress test that showed no reversible ischemia. His pain is more likely to be MSK and he should follow up with his PCP to make sure this resolves. Exam Vital Signs (past 8 hours): Oxygen Delivery Method Room Air Oxygen Flow Rate 0 Narrative Exam Narrative: GEN: no acute distress HEENT: PERRL, moist mucous membranes NECK: no JVD, trachea midline CV: RRR, no murmurs PULM: clear bilaterally, no wheezes, rhonchi, rales ABD: soft, nontender, nondistended, no organomegaly, normal bowel sounds EXT: warm and well perfused with no edema NEURO: AAOx3, moving all extremities with no gross deficits SKIN: no rashes noted PSYCH: pleasant, cooperative Objective Labs Result Diagrams: 01/21/21 04:50 06/09/21 04:50 [facility] Medical History Diabetes Hypertension Family History Father Coronary artery disease Social History household members: spouse Smoking Status: Former smoker alcohol intake: current Discharge Plan Discharge Plan Patient Disposition: Home Provider Discharge Comment: Mr. Trent came in with dizziness, left shoulder pain that was down to numbness in his left arm. He had cardiac testing done that showed no heart attack. He had no abnormal heart rhythm on monitor. His ECHO of his heart showed a normal strength heart with valve disease. His stress test showed no concerning findings. The shoulder pain is likely a muscle or pinched nerve and you can take pain medications for this and follow up with your primary care doctor. If you have dizziness please follow up with your primary care doctor as that can be a side effect of multiple of your medications, and you may be recommended to stop or change one or more of them. Discharge orders & Medications Prescriptions: Continued amlodipine 5 mg PO DAILY RF: 0 metoprolol tartrate 50 mg PO BID RF: 0 hydrochlorothiazide 25 mg PO DAILY RF: 0 lisinopril 40 mg PO DAILY RF: 0 terazosin 2 mg PO DAILY RF: 0 omeprazole 20 mg PO BID RF: 0 spironolactone 25 mg PO DAILY RF: 0 omega-3 fatty acids 1 cap PO DAILY RF: 0 cholecalciferol (vitamin D3) 2,000 unit tablet 2,000 unit PO DAILY RF: 0 aspirin [Adult Aspirin Regimen] 81 mg tablet,delayed release (DR/EC) 81 mg PO DAILY RF: 0 multivitamin Tablet 1 tab PO DAILY RF: 0 cetirizine 10 mg Tablet 10 mg PO DAILY RF: 0 magnesium 200 mg Tablet 400 mg PO DAILY RF: 0 rosuvastatin 10 mg tablet 10 mg PO BEDTIME RF: 0 Follow up/Referrals: Luis Mena MD [Primary Care Provider] - Diet/Activity/Treatments Diet: Low-fat and Low-cholesterol Discharge Data Primary Care Provider: Luis Mena V Attending Provider: Brandon Schumacher VTE Deep Vein Thrombosis/Pulmonary Embolism Present on Admission: No MIPS - DC The patient has current or prior documentation of left ventricular ejection fraction (LVEF) less than 40%, or moderate or severely depressed left ventricular systolic function.: No
== END 2021-01-21 18:00 | disposition home or self-care (01) ==
LOC: ED 15:51 → AC 16:44
PROVIDERS: Admitting Provider Internal Medicine; Emergency Provider Emergency Medicine; PCP Internal Medicine; Referring Provider Emergency Medicine; Visit Provider Internal Medicine
DX: R07.9 Chest pain, unspecified (principal); R42 Dizziness and giddiness; R20.0 Anesthesia of skin; E78.5 Hyperlipidemia, unspecified; I10 Essential (primary) hypertension; Z79.84 Long term (current) use of oral hypoglycemic drugs; E11.9 Type 2 diabetes mellitus without complications; Z79.82 Long term (current) use of aspirin; Z20.822 Contact with and (suspected) exposure to COVID-19
CPT/HCPCS: 36415; 71045; 78451; 80048; 80053; 82550; 82553; 82962; 83690; 84484; 85025; 87635; 93005; 93017; 93306; 96372; 99284; C9803; G0378; A9502; J1815

== ENCOUNTER → 2021-12-02 11:27 | Outpatient (CLI) | payer MEDICARE, SELFPAY ==
[2021-11-16 13:32] VITALS: BMI 33.0
--- NOTE | 2021-12-02 11:29 | DI.MRI.S_ITS ---
PROCEDURE: MR PELIS WO/W CON INDICATIONS: Elevated PSA prostate nodule rule out cancer TECHNIQUE: Coronal HASTE, axial T1 FSE with fat saturation, 3-plane nonbreath-hold T2 FSE. After the administration of contrast, dynamic axial, delayed axial and coronal VIBE or 2-D FLASH with fat saturation through the pelvis. Optional diffusion weighted imaging and ADC may be performed. COMPARISON: None. FINDINGS: Image quality: Diffusion weighted and dynamic contrast enhanced images are diagnostic. Prostate: Gland size is 7.3 x 7.3 by 4.9 cm; ellipsoid gland volume is 135.8 mL. There is nodular hypertrophy of the transition zone Lesion size(s): Lesion 1: 2.5 cm in AP diameter. Lesion 2: 1.8 cm in oblique transverse diameter. Lesion location(s) (sector): Lesion 1: Right lateral transition zone near the apex Lesion 2: Left posteromedial peripheral zone at the gland base. Lesion description: Lesion 1: Irregular lesion with indistinct margins. No extraprostatic extension. Lesion 2: Irregular with indistinct margins. No extraprostatic extension. T2 weighted imaging (T2WI) morphology score: Lesion 1: Three Lesion 2: Three Diffusion weighted imaging (DWI) morphology score: Lesion 1: Three Lesion 2: Three Dynamic contrast enhancement (DCE): Lesion 1: Absent Lesion 2: Absent Lesion PI-RADS score: Lesion 1: PI-RADS three Lesion 2: PI-RADS three Genitourinary system: Bladder wall thickness is normal. Distal ureters are non distended. Bowel and peritoneum: No pathologic free pelvic fluid. Inferior colon and small bowel loops are normal in caliber. Nodes and vessels: No pelvic or inguinal adenopathy by size criteria. Right common iliac artery ectasia and left common iliac artery aneurysm measuring 2.9 cm in diameter. Soft tissues: No inguinal hernias. Artifact of prior right inguinal hernia repair. Bones: Marrow demonstrates normal overall signal, without lesions to suggest metastases. IMPRESSION: 1. Enlarged prostate gland with BPH morphology. 2. There are two PI-RADS three lesions in the prostate gland as described. 3. Left common iliac artery aneurysm. Dictated by: Nadine Stanley M.D. on 12/02/2021 at 15:25 Approved by: Nadine Stanley M.D. on 12/02/2021 at 15:52
== END ==
PROVIDERS: PCP Internal Medicine; Referring Provider Urology; Visit Provider Urology
DX: N40.2 Nodular prostate without lower urinary tract symptoms (principal); R97.20 Elevated prostate specific antigen [PSA]; I72.3 Aneurysm of iliac artery
CPT/HCPCS: 72197; A9579

== ENCOUNTER → 2022-07-13 13:54 | Outpatient (CLI) | payer MEDICARE, SELFPAY ==
[2021-11-16 13:32] VITALS: BMI 33.0
[2022-07-15 06:36] LABS: PSA Free % 19.3 % (.); PSA, Total 8.4 ng/mL (0.0-4.0)
== END ==
PROVIDERS: PCP Internal Medicine; Referring Provider Urology; Visit Provider Urology
DX: R97.20 Elevated prostate specific antigen [PSA] (principal)
CPT/HCPCS: 36415; 84153; 84154

== ENCOUNTER → 2022-09-21 08:21 | Outpatient (CLI) | payer MEDICARE, SELFPAY ==
[2021-11-16 13:32] VITALS: BMI 33.0
[2022-09-21 09:33] LABS: Hematocrit 49.9 % (41-53); Hemoglobin 16.6 g/dL (13.5-17.5); Mean Corpuscular HGB Conc 33.2 % (30-36); Mean Corpuscular Hemoglobin 30.3 PG (26-34); Mean Corpuscular Volume 91.2 fL (80-100); Platelet Count 190 X10^3/uL (150-400); Red Blood Cell Count 5.47 X10^6/uL (4.5-5.9); White Blood Cell Count 5.1 X10^3/uL (4.5-11.0)
[2022-09-21 09:59] LABS: Hemoglobin A1C% w Est Avg Glu 5.5 % (4.0-6.0)
[2022-09-21 10:02] LABS: Alanine Aminotransferase 22 IU/L (<50); Albumin 4.2 g/dL (3.5-5.0); Albumin Globulin Ratio 1.6 (1.0-2.8); Alkaline Phosphatase 45 U/L (38-126); Aspartate Aminotransferase 22 IU/L (17-59); BUN Creatinine Ratio 18.3 (6-22); Bilirubin Total 0.8 mg/dL (0.2-1.3); Blood Urea Nitrogen 17 mg/dL (9-20); Calcium 9.1 mg/dL (8.4-10.2); Carbon Dioxide 29 mmol/L (22-32); Chloride 102 mmol/L (98-107); Cholesterol 190 mg/dL (140-199); Estimated Glomerular Filt Rate > 60 mL/min (>60); Globulin 2.6 g/dL (1.7-4.1); Glucose 111 mg/dL (80-110); HDL Cholesterol 37 mg/dL (40-60); HEMOLYSIS < 15 (0-50); LDL Cholesterol Calculated 109 mg/dL (<100); Potassium 3.9 mmol/L (3.4-5.1); Sodium 140 mmol/L (137-145); Total Protein 6.8 g/dL (6.3-8.2); Triglycerides 222 mg/dL (35-150); Uric Acid 4.6 mg/dL (3.5-8.5)
[2022-09-21 10:31] LABS: TSH w/ Reflex to FT4 1.66 uIU/mL (0.47-4.68)
[2022-09-21 10:48] LABS: Microalbumin Urine Random 1.3 mg/dL (0-1.6)
[2022-09-21 10:50] LABS: Creatinine Urine Random 139.1 mg/dL; Microalbumi Creatinin Ratio Ur 9.3 ug/mg CR (<30)
== END ==
PROVIDERS: PCP Internal Medicine; Referring Provider Internal Medicine; Visit Provider Internal Medicine
DX: E11.69 Type 2 diabetes mellitus with other specified complication (principal); E78.2 Mixed hyperlipidemia; E78.5 Hyperlipidemia, unspecified; I10 Essential (primary) hypertension; M1A.9XX0 Chronic gout, unspecified, without tophus (tophi)
CPT/HCPCS: 36415; 80053; 80061; 82043; 82570; 83036; 84443; 84550; 85027

== ENCOUNTER → 2023-01-13 09:31 | Outpatient (CLI) | payer MEDICARE, SELFPAY ==
[2021-11-16 13:32] VITALS: BMI 33.0
[2023-01-15 07:08] LABS: PSA Free % 18.4 % (.)
== END ==
PROVIDERS: PCP Internal Medicine; Referring Provider Urology; Visit Provider Urology
DX: R97.20 Elevated prostate specific antigen [PSA] (principal)
CPT/HCPCS: 36415; 84153; 84154

== ENCOUNTER → 2023-03-21 15:07 | Outpatient (CLI) | payer MEDICARE, SELFPAY ==
[2021-11-16 13:32] VITALS: BMI 33.0
[2023-03-21 17:14] LABS: Aspartate Aminotransferase 31 IU/L (17-59); BUN Creatinine Ratio 22.2 (6-22); Blood Urea Nitrogen 22 mg/dL (9-20); Calcium 9.4 mg/dL (8.4-10.2); Carbon Dioxide 30 mmol/L (22-32); Chloride 102 mmol/L (98-107); Cholesterol 203 mg/dL (140-199); Estimated Glomerular Filt Rate > 60 mL/min (>60); Glucose 88 mg/dL (80-110); HDL Cholesterol 34 mg/dL (40-60); HEMOLYSIS 17 (0-50); LDL Cholesterol Calculated 91 mg/dL (<100); Potassium 3.5 mmol/L (3.4-5.1); Sodium 139 mmol/L (137-145); Triglycerides 388 mg/dL (35-150)
[2023-03-23 00:06] LABS: Labcorp Hemoglobin (Hb) A1c 5.6 % (4.8-5.6)
== END ==
PROVIDERS: PCP Internal Medicine; Referring Provider Internal Medicine; Visit Provider Internal Medicine
DX: E11.69 Type 2 diabetes mellitus with other specified complication (principal); E78.2 Mixed hyperlipidemia; E78.5 Hyperlipidemia, unspecified; I10 Essential (primary) hypertension
CPT/HCPCS: 36415; 80048; 80061; 83036; 84450

== ENCOUNTER 2023-05-04 13:45 | Outpatient (RCR) | payer MEDICARE, SELFPAY ==
[2021-11-16 13:32] VITALS: BMI 33.0
--- NOTE | 2023-03-24 15:33 | PT.OIE ---
Current Diagnoses Other shoulder lesions, left shoulder (03/24/23) Past Medical History (Last Updated 03/21/23 @ 14:47 by Luis Mena MD) BPH w urinary obs/LUTS Chronic prostatitis DM type 2 with diabetic dyslipidemia Elevated PSA Essential hypertension Gout History of BPH History of colonic polyps Hx of hyperlipidemia Hypertension Incomplete emptying of bladder Mixed hyperlipidemia Nodular prostate Overweight Visit Care Team Role Provider Type Luis Mena MD Attending Provider Physician Family Provider Primary Care Provider Referring Provider Specialty: Internal Medicine Address: [address] [place] [address], [facility] Email: [email or web address] Physical Therapy Initial Evaluation PT-OP-A Visit Information Start: 03/24/23 13:44 Freq: Status: Active Protocol: Document 03/24/23 13:46 AB (Rec: 03/24/23 15:25 AB [id number]) Out-Patient Physical Therapy Visit Information Visit Information Visit Type Initial Evaluation Visit Start Time 14:00 Visit Stop Time 14:45 Total Visit Minutes 45 Visit Number 1 Number of SENIOR WEB ENGINEER Visits 0 Evaluation Information Evaluation Date 03/24/23 Precautions Precautions DM Type 2, HTN, hyperlipidemia PT-OP-B Current Condition Start: 03/24/23 13:44 Freq: Status: Active Protocol: Document 03/24/23 13:46 AB (Rec: 03/24/23 15:25 AB [id number]) Current Condition History of Current Condition Onset Date Chronic Current Complaints Sharp pain: 3-4/10 at worst, 0 /10 at best History of Current Condition Pt reports he sufferred a left shoulder dislocation, and has started to bother him again over the last year. He has pain when he rolls onto his left shoulder or when he has to drive more than 45 min, mopping, carrying heavy items (i.e. gorceries). Pt has tried ice, Tylenol with some relief short term. Prior Treatments and Tests None Future Testing and Treatments Planned No other referrals at this time. Treatment Goals Patient/Caregiver Goals To improve his symptoms and avoid further aggravation. Prior Functional Status Baseline Function- ADL's Independent Baseline Function- Mobility Independent Current Functional Impairments (Reported) Functional Limitations- ADL's No limitations at the moment, but has pain with activities listed above. PT-OP-C Subjective Start: 03/24/23 13:44 Freq: Status: Active Protocol: Document 03/24/23 13:46 AB (Rec: 03/24/23 15:25 AB [id number]) OP-PT Subjective Patient Comments Patient Comments See current condition Patient Reported Progress Same Patient Questionnaires Quick Dash- Upper Extremity Quick Dash UE Score 22% impairment Quick Dash UE Impairment 20 to 39% Impaired (Score 20- 39) OP-PT Pain Assessment Location Left Shoulder Intensity 7 Scale Used Numeric (0 - 10) Description Sharp Frequency With agg activities Other Pain Aggravating Factors Driving, rolling onto left shoulder, carrying heavy items , mopping Pain Alleviating Factors Cold,Medication,Inactivity PT-OP-J Posture/Palpation/Skin Start: 03/24/23 13:44 Freq: Status: Active Protocol: Document 03/24/23 13:46 AB (Rec: 03/24/23 15:25 AB [id number]) Posture Evaluation Position Sitting Evaluation View Lateral T-Spine Posture Increased Kyphosis Palpation Assessment Location One Palpation Location Left shoulder Palpation Findings None/Normal Palpation Details Pt denies TTP PT-OP-K Range of Motion Start: 03/24/23 13:44 Freq: Status: Active Protocol: Document 03/24/23 13:46 AB (Rec: 03/24/23 15:25 AB [id number]) Shoulder Goniometric Range of Motion Shoulder Right Active Shoulder ROM WFL Yes Testing Position Sitting Flexion 140 Abduction 155 External Rotation at 0 degrees Abduction 65 Internal Rotation Behind Back (text) T12 Comments Functional ER: T3 Pt reports feeling of muscle stretch with all motions Left Active Shoulder ROM WFL Yes Testing Position Sitting Flexion 138 Abduction 143 External Rotation at 0 degrees Abduction 50 Internal Rotation Behind Back (text) T12 Comments Functional ER: T3 Pain with all motions except ER at 0 deg of ABD PT-OP-L Special Tests Start: 03/24/23 13:44 Freq: Status: Active Protocol: Document 03/24/23 13:46 AB (Rec: 03/24/23 15:25 AB [id number]) Special Tests Shoulder Special Tests Lift-Off Rotator Cuff Test Results negative Empty Can Test Results negative [place] Impingement Test Results positive PT-OP-M Strength Start: 03/24/23 13:44 Freq: Status: Active Protocol: Document 03/24/23 13:46 AB (Rec: 03/24/23 15:25 AB [id number]) Shoulder Strength Shoulder Manual Muscle Testing Right Flexion 5 Normal Extension 5 Normal Abduction (C5) 5 Normal External Rotation 5 Normal Internal Rotation 5 Normal Left Flexion 4+ Good+ Extension 5 Normal Abduction (C5) 4+ Good+ External Rotation 5 Normal Internal Rotation 5 Normal Comments Pain with ABD MMT testing Elbow/Forearm Strength Elbow and Forearm Manual Muscle Testing Right Flexion (C6) 5 Normal Extension (C7) 5 Normal Left Flexion (C6) 5 Normal Extension (C7) 5 Normal PT-OP-Q Treatments Start: 03/24/23 13:44 Freq: Status: Active Protocol: Document 03/24/23 13:46 AB (Rec: 03/24/23 15:25 AB [id number]) Therapeutic Exercises Supine Exercises 1 Supine Exercise Name Cane AAROM shoulder flexion Side bilateral Equipment Used cane/dowel Reps/Minutes 5x 5 sec holds Standing Exercises 3 Standing Exercise Name Wall clocks Side bilateral Resistance level two theraband Reps/Minutes x5 reps Comments al the way around the clock = one rep 2 Standing Exercise Name Cane AAROM shoulder ABD Side left Equipment Used cane/dowel Reps/Minutes 5x5sec holds 1 Standing Exercise Name Cane AAROM shoulder ER Side left Equipment Used cane/dowel Reps/Minutes 5x5sec holds PT-OP-T Assessment and Plan Start: 03/24/23 13:44 Freq: Status: Active Protocol: Document 03/24/23 13:46 AB (Rec: 03/24/23 15:25 AB [id number]) Physical Therapy Assessment Rehab Potential Rehabilitation Potential Excellent Evaluation Complexity Number of Personal Factors/Comorbidities 1-2 Number of Body Systems Impaired 1-2 Clinical Presentation at Evaluation Stable Impairments Impairments Pain,ROM,Strength Goals Five Impairment elevated QUICKDASH Short Term Goal (STG) Pt's QuickDASH score to improve to 19% impairment or better to show improving symptoms and QOL. STG Duration 4 weeks Story Teller Goal (LTG) Pt's QuickDASH score to improve to 12% impairment or better to show resolving symptoms and improved QOL. Four Impairment LUE weakness Short Term Goal (STG) Pt's LUE MMT scores to improve to 5/5 to demonstrate improving UE strength to perform functional activities. STG Duration 4 weeks Senior Living Goal (LTG) Pt's LUE MMT scores to improve to 5/5 without symptoms to demonstrate improved UE strength to perform ADLS, IADLs, and recreational activities. Three Impairment ROM deficits Short Term Goal (STG) Pt's left shoulder ER AROM to improve to 60 degress or better to show improving ROM to perform ADLs and IADLs with increased ease. STG Duration 4 weeks Senior Living Goal (LTG) Pt's left shoulder flexion AROM to improve to 65 degress or better to show improved ROM to perform ADLs and IADLs with increased ease. LTG Duration 6 weeks Two Impairment ROM deficits Short Term Goal (STG) Pt's left shoulder ABD AROM to improve to 160 degress or better to show improving ROM to perform ADLs and IADLs with increased ease. STG Duration 4 weeks Senior Living Goal (LTG) Pt's left shoulder flexion AROM to improve to 170 degress or better to show improved ROM to perform ADLs and IADLs with increased ease. LTG Duration 6 weeks One Impairment ROM deficits Short Term Goal (STG) Pt's bilateral shoulder flexion AROM to improve to 150 degress or better to show improving ROM to perform ADLs and IADLs with increased ease. STG Duration 4 weeks Story Teller Goal (LTG) Pt's bilateral shoulder flexion AROM to improve to 165 degress or better to show improved ROM to perform ADLs and IADLs with increased ease. LTG Duration 6 weeks Assessment Summary Assessment Shabbir Trent is a 72 year old male pt presenting to outpatient PT clinic with complaints of mild to moderate chronic left shoulder pain/ discomfort. Today's PT examination revealed bilateral shoulder AROM deficits (L>R), mild left UE weakness, and pain symptoms that were reproduced during testing as detailed above. Based on these findings, the pt would benefit from skilled PT to improve these deficits and symptoms in order to return to his PLOF. The pt's rehab potential is excellent based on his symptom presentation, current level of function, and motivation to improve. Physical Therapy Plan Frequency and Duration Frequency of Treatment 2x/Week Duration of treatment (weeks) 6 Plan of Care Start Date 03/24/23 Plan of Care End Date 05/05/23 Therapeutic Interventions Therapeutic Interventions Manual Therapy,Neuromuscular Re-education,Self-Care/Home Management,Soft Tissue Mobilization,Taping, Therapeutic Activities, Therapeutic Exercises Modalities Cold Pack/Ice Massage,Electric Stimulation Next Visit Focus/Plan Next Note Type Treatment Note Next Visit Plan Review HEP, add low level strength and neuromuscular re- ed exercises.
--- NOTE | 2023-03-24 15:34 | PT.OPPOC ---
Physical, Occupational & Speech Therapy At [facility] Current Diagnoses Other shoulder lesions, left shoulder (03/24/23) Visit Care Team Role Provider Type Luis Mena MD Attending Provider Physician Family Provider Primary Care Provider Referring Provider Specialty: Internal Medicine Address: [address] [place] [address], [id number] Email: [email or web address] Plan Of Care PT-OP-T Assessment and Plan Start: 03/24/23 13:44 Freq: Status: Active Protocol: Document 03/24/23 13:46 AB (Rec: 03/24/23 15:25 AB [id number]) Physical Therapy Assessment Rehab Potential Rehabilitation Potential Excellent Evaluation Complexity Number of Personal Factors/Comorbidities 1-2 Number of Body Systems Impaired 1-2 Clinical Presentation at Evaluation Stable Impairments Impairments Pain,ROM,Strength Goals Five Impairment elevated QUICKDASH Short Term Goal (STG) Pt's QuickDASH score to improve to 19% impairment or better to show improving symptoms and QOL. STG Duration 4 weeks Profile Shaper Operator Goal (LTG) Pt's QuickDASH score to improve to 12% impairment or better to show resolving symptoms and improved QOL. Four Impairment LUE weakness Short Term Goal (STG) Pt's LUE MMT scores to improve to 5/5 to demonstrate improving UE strength to perform functional activities. STG Duration 4 weeks Profile Shaper Operator Goal (LTG) Pt's LUE MMT scores to improve to 5/5 without symptoms to demonstrate improved UE strength to perform ADLS, IADLs, and recreational activities. Three Impairment ROM deficits Short Term Goal (STG) Pt's left shoulder ER AROM to improve to 60 degress or better to show improving ROM to perform ADLs and IADLs with increased ease. STG Duration 4 weeks Profile Shaper Operator Goal (LTG) Pt's left shoulder flexion AROM to improve to 65 degress or better to show improved ROM to perform ADLs and IADLs with increased ease. LTG Duration 6 weeks Two Impairment ROM deficits Short Term Goal (STG) Pt's left shoulder ABD AROM to improve to 160 degress or better to show improving ROM to perform ADLs and IADLs with increased ease. STG Duration 4 weeks [facility] Goal (LTG) Pt's left shoulder flexion AROM to improve to 170 degress or better to show improved ROM to perform ADLs and IADLs with increased ease. LTG Duration 6 weeks One Impairment ROM deficits Short Term Goal (STG) Pt's bilateral shoulder flexion AROM to improve to 150 degress or better to show improving ROM to perform ADLs and IADLs with increased ease. STG Duration 4 weeks [facility] Goal (LTG) Pt's bilateral shoulder flexion AROM to improve to 165 degress or better to show improved ROM to perform ADLs and IADLs with increased ease. LTG Duration 6 weeks Assessment Summary Assessment Shabbir Trent is a 72 year old male pt presenting to outpatient PT clinic with complaints of mild to moderate chronic left shoulder pain/ discomfort. Today's PT examination revealed bilateral shoulder AROM deficits (L>R), mild left UE weakness, and pain symptoms that were reproduced during testing as detailed above. Based on these findings, the pt would benefit from skilled PT to improve these deficits and symptoms in order to return to his PLOF. The pt's rehab potential is excellent based on his symptom presentation, current level of function, and motivation to improve. Physical Therapy Plan Frequency and Duration Frequency of Treatment 2x/Week Duration of treatment (weeks) 6 Plan of Care Start Date 03/24/23 Plan of Care End Date 05/05/23 Therapeutic Interventions Therapeutic Interventions Manual Therapy,Neuromuscular Re-education,Self-Care/Home Management,Soft Tissue Mobilization,Taping, Therapeutic Activities, Therapeutic Exercises Modalities Cold Pack/Ice Massage,Electric Stimulation Next Visit Focus/Plan Next Note Type Treatment Note Next Visit Plan Review HEP, add low level strength and neuromuscular re- ed exercises. Plan of Care Dates Plan of Care Start Date 03/24/23 Plan of Care End Date 05/05/23 Electronically Signed by: Royal Gar PT 03/24/23 7911 If you are in agreement with this Plan of Care, please return a signed and dated copy. I have reviewed this Plan of Care and certify that the skilled therapy services above are required to meet the patient?s needs. Physician Signature Date Printed Name and Credentials Clinical Instructor Signature Printed Name and Credentials
--- NOTE | 2023-03-28 15:12 | PT.OIE ---
Current Diagnoses Other shoulder lesions, left shoulder (03/28/23) Past Medical History (Last Updated 03/21/23 @ 14:47 by Luis Mena MD) BPH w urinary obs/LUTS Chronic prostatitis DM type 2 with diabetic dyslipidemia Elevated PSA Essential hypertension Gout History of BPH History of colonic polyps Hx of hyperlipidemia Hypertension Incomplete emptying of bladder Mixed hyperlipidemia Nodular prostate Overweight Visit Care Team Role Provider Type Luis Mena MD Attending Provider Physician Family Provider Primary Care Provider Referring Provider Specialty: Internal Medicine Address: [address] [place] [address], [facility] Email: [email or web address] Physical Therapy Initial Evaluation PT-OP-A Visit Information Start: 03/24/23 13:44 Freq: Status: Active Protocol: Document 03/24/23 13:46 AB (Rec: 03/24/23 15:25 AB [id number]) Out-Patient Physical Therapy Visit Information Visit Information Visit Type Initial Evaluation Visit Start Time 14:00 Visit Stop Time 14:45 Total Visit Minutes 45 Visit Number 1 Number of 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 He has pain when he rolls onto his left shoulder or when he has to drive more than 45 min, mopping, carrying heavy items (i.e. gorceries). Pt has tried ice, Tylenol with some relief short term. Prior Treatments and Tests None Future Testing and Treatments Planned No other referrals at this time. Treatment Goals Patient/Caregiver Goals To improve his symptoms and avoid further aggravation. Prior Functional Status Baseline Function- ADL's Independent Baseline Function- Mobility Independent Current Functional Impairments (Reported) Functional Limitations- ADL's No limitations at the moment, but has pain with activities listed above. PT-OP-C Subjective Start: 03/24/23 13:44 Freq: Status: Active Protocol: Document 03/24/23 13:46 AB (Rec: 03/24/23 15:25 AB [id number]) OP-PT Subjective Patient Comments Patient Comments See current condition Patient Reported Progress Same Patient Questionnaires Quick Dash- Upper Extremity Quick Dash UE Score 22% impairment Quick Dash UE Impairment 20 to 39% Impaired (Score 20- 39) OP-PT Pain Assessment Location Left Shoulder Intensity 7 Scale Used Numeric (0 - 10) Description Sharp Frequency With agg activities Other Pain Aggravating Factors Driving, rolling onto left shoulder, carrying heavy items , mopping Pain Alleviating Factors Cold,Medication,Inactivity PT-OP-J Posture/Palpation/Skin Start: 03/24/23 13:44 Freq: Status: Active Protocol: Document 03/24/23 13:46 AB (Rec: 03/24/23 15:25 AB [id number]) Posture Evaluation Position Sitting Evaluation View Lateral T-Spine Posture Increased Kyphosis Palpation Assessment Location One Palpation Location Left shoulder Palpation Findings None/Normal Palpation Details Pt denies TTP PT-OP-K Range of Motion Start: 03/24/23 13:44 Freq: Status: Active Protocol: Document 03/24/23 13:46 AB (Rec: 03/24/23 15:25 AB [id number]) Shoulder Goniometric Range of Motion Shoulder Right Active Shoulder ROM WFL Yes Testing Position Sitting Flexion 140 Abduction 155 External Rotation at 0 degrees Abduction 65 Internal Rotation Behind Back (text) T12 Comments Functional ER: T3 Pt reports feeling of muscle stretch with all motions Left Active Shoulder ROM WFL Yes Testing Position Sitting Flexion 138 Abduction 143 External Rotation at 0 degrees Abduction 50 Internal Rotation Behind Back (text) T12 Comments Functional ER: T3 Pain with all motions except ER at 0 deg of ABD PT-OP-L Special Tests Start: 03/24/23 13:44 Freq: Status: Active Protocol: Document 03/24/23 13:46 AB (Rec: 03/24/23 15:25 AB [id number]) Special Tests Shoulder Special Tests Lift-Off Rotator Cuff Test Results negative Empty Can Test Results negative [place] Impingement Test Results positive PT-OP-M Strength Start: 03/24/23 13:44 Freq: Status: Active Protocol: Document 03/24/23 13:46 AB (Rec: 03/24/23 15:25 AB [id number]) Shoulder Strength Shoulder Manual Muscle Testing Right Flexion 5 Normal Extension 5 Normal Abduction (C5) 5 Normal External Rotation 5 Normal Internal Rotation 5 Normal Left Flexion 4+ Good+ Extension 5 Normal Abduction (C5) 4+ Good+ External Rotation 5 Normal Internal Rotation 5 Normal Comments Pain with ABD MMT testing Elbow/Forearm Strength Elbow and Forearm Manual Muscle Testing Right Flexion (C6) 5 Normal Extension (C7) 5 Normal Left Flexion (C6) 5 Normal Extension (C7) 5 Normal PT-OP-Q Treatments Start: 03/24/23 13:44 Freq: Status: Active Protocol: Document 03/24/23 13:46 AB (Rec: 03/24/23 15:25 AB [id number]) Therapeutic Exercises Supine Exercises 1 Supine Exercise Name Cane AAROM shoulder flexion Side bilateral Equipment Used cane/dowel Reps/Minutes 5x 5 sec holds Standing Exercises 3 Standing Exercise Name Wall clocks Side bilateral Resistance level two theraband Reps/Minutes x5 reps Comments al the way around the clock = one rep 2 Standing Exercise Name Cane AAROM shoulder ABD Side left Equipment Used cane/dowel Reps/Minutes 5x5sec holds 1 Standing Exercise Name Cane AAROM shoulder ER Side left Equipment Used cane/dowel Reps/Minutes 5x5sec holds PT-OP-T Assessment and Plan Start: 03/24/23 13:44 Freq: Status: Active Protocol: Document 03/24/23 13:46 AB (Rec: 03/24/23 15:25 AB [id number]) Physical Therapy Assessment Rehab Potential Rehabilitation Potential Excellent Evaluation Complexity Number of Personal Factors/Comorbidities 1-2 Number of Body Systems Impaired 1-2 Clinical Presentation at Evaluation Stable Impairments Impairments Pain,ROM,Strength Goals Five Impairment elevated QUICKDASH Short Term Goal (STG) Pt's QuickDASH score to improve to 19% impairment or better to show improving symptoms and QOL. STG Duration 4 weeks Long Term Care Pharmacist Goal (LTG) Pt's QuickDASH score to improve to 12% impairment or better to show resolving symptoms and improved QOL. Four Impairment LUE weakness Short Term Goal (STG) Pt's LUE MMT scores to improve to 5/5 to demonstrate improving UE strength to perform functional activities. STG Duration 4 weeks Long-Term Goal (LTG) Pt's LUE MMT scores to improve to 5/5 without symptoms to demonstrate improved UE strength to perform ADLS, IADLs, and recreational activities. Three Impairment ROM deficits Short Term Goal (STG) Pt's left shoulder ER AROM to improve to 60 degress or better to show improving ROM to perform ADLs and IADLs with increased ease. STG Duration 4 weeks Long-Term Goal (LTG) Pt's left shoulder flexion AROM to improve to 65 degress or better to show improved ROM to perform ADLs and IADLs with increased ease. LTG Duration 6 weeks Two Impairment ROM deficits Short Term Goal (STG) Pt's left shoulder ABD AROM to improve to 160 degress or better to show improving ROM to perform ADLs and IADLs with increased ease. STG Duration 4 weeks Long-Term Goal (LTG) Pt's left shoulder flexion AROM to improve to 170 degress or better to show improved ROM to perform ADLs and IADLs with increased ease. LTG Duration 6 weeks One Impairment ROM deficits Short Term Goal (STG) Pt's bilateral shoulder flexion AROM to improve to 150 degress or better to show improving ROM to perform ADLs and IADLs with increased ease. STG Duration 4 weeks Long Term Care Pharmacist Goal (LTG) Pt's bilateral shoulder flexion AROM to improve to 165 degress or better to show improved ROM to perform ADLs and IADLs with increased ease. LTG Duration 6 weeks Assessment Summary Assessment Shabbir Trent is a 72 year old male pt presenting to outpatient PT clinic with complaints of mild to moderate chronic left shoulder pain/ discomfort. Today's PT examination revealed bilateral shoulder AROM deficits (L>R), mild left UE weakness, and pain symptoms that were reproduced during testing as detailed above. Based on these findings, the pt would benefit from skilled PT to improve these deficits and symptoms in order to return to his PLOF. The pt's rehab potential is excellent based on his symptom presentation, current level of function, and motivation to improve. Physical Therapy Plan Frequency and Duration Frequency of Treatment 2x/Week Duration of treatment (weeks) 6 Plan of Care Start Date 03/24/23 Plan of Care End Date 05/05/23 Therapeutic Interventions Therapeutic Interventions Manual Therapy,Neuromuscular Re-education,Self-Care/Home Management,Soft Tissue Mobilization,Taping, Therapeutic Activities, Therapeutic Exercises Modalities Cold Pack/Ice Massage,Electric Stimulation Next Visit Focus/Plan Next Note Type Treatment Note Next Visit Plan Review HEP, add low level strength and neuromuscular re- ed exercises.
--- NOTE | 2023-03-28 15:19 | PT.OTN ---
Current Diagnoses Other shoulder lesions, left shoulder (03/28/23) Physical Therapy Treatment Note PT-OP-A Visit Information Start: 03/24/23 13:44 Freq: Status: Active Protocol: Document 03/28/23 13:53 AB (Rec: 03/28/23 15:18 AB [id number]) Out-Patient Physical Therapy Visit Information Visit Information Visit Type Treatment Note Visit Start Time 13:50 Visit Number 2 Number of LEGISLATORS Visits 0 PT-OP-B Current Condition Start: 03/24/23 13:44 Freq: Status: Active Protocol: Document 03/24/23 13:46 AB (Rec: 03/24/23 15:25 AB [id number]) Current Condition History of Current Condition Onset Date Chronic Current Complaints Sharp pain: 3-4/10 at worst, 0 /10 at best History of Current Condition Pt reports he sufferred a left shoulder dislocation, and has started to bother him again over the last year. He has pain when he rolls onto his left shoulder or when he has to drive more than 45 min, mopping, carrying heavy items (i.e. gorceries). Pt has tried ice, Tylenol with some relief short term. Prior Treatments and Tests None Future Testing and Treatments Planned No other referrals at this time. Treatment Goals Patient/Caregiver Goals To improve his symptoms and avoid further aggravation. Prior Functional Status Baseline Function- ADL's Independent Baseline Function- Mobility Independent Current Functional Impairments (Reported) Functional Limitations- ADL's No limitations at the moment, but has pain with activities listed above. PT-OP-C Subjective Start: 03/24/23 13:44 Freq: Status: Active Protocol: Document 03/28/23 13:53 AB (Rec: 03/28/23 15:18 AB [id number]) OP-PT Subjective Patient Comments Patient Comments Pt reports he has been compliant with his HEP, but forgot to do it one day. He states the wall clocks have been causing him some discomfort/pain. PT-OP-J Posture/Palpation/Skin Start: 03/24/23 13:44 Freq: Status: Active Protocol: Document 03/24/23 13:46 AB (Rec: 03/24/23 15:25 AB [id number]) Posture Evaluation Position Sitting Evaluation View Lateral T-Spine Posture Increased Kyphosis Palpation Assessment Location One Palpation Location Left shoulder Palpation Findings None/Normal Palpation Details Pt denies TTP PT-OP-K Range of Motion Start: 03/24/23 13:44 Freq: Status: Active Protocol: Document 03/24/23 13:46 AB (Rec: 03/24/23 15:25 AB [id number]) Shoulder Goniometric Range of Motion Shoulder Right Active Shoulder ROM WFL Yes Testing Position Sitting Flexion 140 Abduction 155 External Rotation at 0 degrees Abduction 65 Internal Rotation Behind Back (text) T12 Comments Functional ER: T3 Pt reports feeling of muscle stretch with all motions Left Active Shoulder ROM WFL Yes Testing Position Sitting Flexion 138 Abduction 143 External Rotation at 0 degrees Abduction 50 Internal Rotation Behind Back (text) T12 Comments Functional ER: T3 Pain with all motions except ER at 0 deg of ABD PT-OP-L Special Tests Start: 03/24/23 13:44 Freq: Status: Active Protocol: Document 03/24/23 13:46 AB (Rec: 03/24/23 15:25 AB [id number]) Special Tests Shoulder Special Tests Lift-Off Rotator Cuff Test Results negative Empty Can Test Results negative [place] Impingement Test Results positive PT-OP-M Strength Start: 03/24/23 13:44 Freq: Status: Active Protocol: Document 03/24/23 13:46 AB (Rec: 03/24/23 15:25 AB [id number]) Shoulder Strength Shoulder Manual Muscle Testing Right Flexion 5 Normal Extension 5 Normal Abduction (C5) 5 Normal External Rotation 5 Normal Internal Rotation 5 Normal Left Flexion 4+ Good+ Extension 5 Normal Abduction (C5) 4+ Good+ External Rotation 5 Normal Internal Rotation 5 Normal Comments Pain with ABD MMT testing Elbow/Forearm Strength Elbow and Forearm Manual Muscle Testing Right Flexion (C6) 5 Normal Extension (C7) 5 Normal Left Flexion (C6) 5 Normal Extension (C7) 5 Normal PT-OP-Q Treatments Start: 03/24/23 13:44 Freq: Status: Active Protocol: Document 03/28/23 13:53 AB (Rec: 03/28/23 15:18 AB [id number]) Therapeutic Exercises Supine Exercises 1 Supine Exercise Name Supine cane shoulder flexion AAROM Side bilateral Reps/Minutes x10, 5 sec holds Standing Exercises 8 Standing Exercise Name Ball on wall ABCs Side left Equipment Used small yellow ball Reps/Minutes 1x 6 Standing Exercise Name Lateral raises Side bilateral Resistance 1# DBs Reps/Minutes 2x10 7 Standing Exercise Name Front raises Side bilateral Resistance 2# DBs Reps/Minutes 2x10 5 Standing Exercise Name Theraband rows Side bilateral Resistance blueberry TB Reps/Minutes 2x15 4 Standing Exercise Name Theraband ER and IR at 0 deg of shoulder ABD Side left Resistance orange TB Reps/Minutes 1x10, 1x15 3 Standing Exercise Name shoulder ABD AAROM Side left Reps/Minutes x10, 5 sec holds 2 Standing Exercise Name Shoulder ER AAROM Side left Reps/Minutes x10, 5 sec holds 1 Standing Exercise Name Wall clocks Side bilateral Resistance level 2 (teal) theraband Reps/Minutes 2x5 PT-OP-T Assessment and Plan Start: 03/24/23 13:44 Freq: Status: Active Protocol: Document 03/28/23 13:53 AB (Rec: 03/28/23 15:18 AB [id number]) Physical Therapy Assessment Assessment Summary Assessment The pt demonstrated good recall of HEP provided, however he was corrected in his hand placement when perfoming wall clocks. Additional RTC and periscapular musculature strengthening exericses were performed today to improve the pt's symptoms, with the pt provided with indication for these exercises and with cues to perform with good form to avoid compensations. The pt would benefit from further progression next visit based on tolerance to today's visit. Physical Therapy Plan Next Visit Focus/Plan Next Note Type Treatment Note Next Visit Plan Continue progressing as per POC.
--- NOTE | 2023-03-30 16:09 | PT.OTN ---
Current Diagnoses Other shoulder lesions, left shoulder (03/30/23) Physical Therapy Treatment Note PT-OP-A Visit Information Start: 03/24/23 13:44 Freq: Status: Active Protocol: Document 03/30/23 15:57 AB (Rec: 03/30/23 16:09 AB [id number]) Out-Patient Physical Therapy Visit Information Visit Information Visit Type Treatment Note Visit Start Time 13:45 Visit Stop Time 14:30 Total Visit Minutes 45 Visit Number 3 Number of STRIPPING CUTTER AND WINDER Visits 0 PT-OP-B Current Condition Start: 03/24/23 13:44 Freq: Status: Active Protocol: Document 03/24/23 13:46 AB (Rec: 03/24/23 15:25 AB [id number]) Current Condition History of Current Condition Onset Date Chronic Current Complaints Sharp pain: 3-4/10 at worst, 0 /10 at best History of Current Condition Pt reports he sufferred a left shoulder dislocation, and has started to bother him again over the last year. He has pain when he rolls onto his left shoulder or when he has to drive more than 45 min, mopping, carrying heavy items (i.e. gorceries). Pt has tried ice, Tylenol with some relief short term. Prior Treatments and Tests None Future Testing and Treatments Planned No other referrals at this time. Treatment Goals Patient/Caregiver Goals To improve his symptoms and avoid further aggravation. Prior Functional Status Baseline Function- ADL's Independent Baseline Function- Mobility Independent Current Functional Impairments (Reported) Functional Limitations- ADL's No limitations at the moment, but has pain with activities listed above. PT-OP-C Subjective Start: 03/24/23 13:44 Freq: Status: Active Protocol: Document 03/30/23 15:57 AB (Rec: 03/30/23 16:09 AB [id number]) OP-PT Subjective Patient Comments Patient Comments Pt reports mild improvement in his shoulder symptoms. Has no new complaints otherwise. Patient Reported Progress Improving PT-OP-J Posture/Palpation/Skin Start: 03/24/23 13:44 Freq: Status: Active Protocol: Document 03/24/23 13:46 AB (Rec: 03/24/23 15:25 AB [id number]) Posture Evaluation Position Sitting Evaluation View Lateral T-Spine Posture Increased Kyphosis Palpation Assessment Location One Palpation Location Left shoulder Palpation Findings None/Normal Palpation Details Pt denies TTP PT-OP-K Range of Motion Start: 03/24/23 13:44 Freq: Status: Active Protocol: Document 03/24/23 13:46 AB (Rec: 03/24/23 15:25 AB [id number]) Shoulder Goniometric Range of Motion Shoulder Right Active Shoulder ROM WFL Yes Testing Position Sitting Flexion 140 Abduction 155 External Rotation at 0 degrees Abduction 65 Internal Rotation Behind Back (text) T12 Comments Functional ER: T3 Pt reports feeling of muscle stretch with all motions Left Active Shoulder ROM WFL Yes Testing Position Sitting Flexion 138 Abduction 143 External Rotation at 0 degrees Abduction 50 Internal Rotation Behind Back (text) T12 Comments Functional ER: T3 Pain with all motions except ER at 0 deg of ABD PT-OP-L Special Tests Start: 03/24/23 13:44 Freq: Status: Active Protocol: Document 03/24/23 13:46 AB (Rec: 03/24/23 15:25 AB [id number]) Special Tests Shoulder Special Tests Lift-Off Rotator Cuff Test Results negative Empty Can Test Results negative [place] Impingement Test Results positive PT-OP-M Strength Start: 03/24/23 13:44 Freq: Status: Active Protocol: Document 03/24/23 13:46 AB (Rec: 03/24/23 15:25 AB [id number]) Shoulder Strength Shoulder Manual Muscle Testing Right Flexion 5 Normal Extension 5 Normal Abduction (C5) 5 Normal External Rotation 5 Normal Internal Rotation 5 Normal Left Flexion 4+ Good+ Extension 5 Normal Abduction (C5) 4+ Good+ External Rotation 5 Normal Internal Rotation 5 Normal Comments Pain with ABD MMT testing Elbow/Forearm Strength Elbow and Forearm Manual Muscle Testing Right Flexion (C6) 5 Normal Extension (C7) 5 Normal Left Flexion (C6) 5 Normal Extension (C7) 5 Normal PT-OP-Q Treatments Start: 03/24/23 13:44 Freq: Status: Active Protocol: Document 03/30/23 15:57 AB (Rec: 03/30/23 16:09 AB [id number]) Cardio Equipment Upper Body Ergometer (UBE) Duration (Minutes) 4 Other 2 fwd, 2 bwd Therapeutic Exercises Prone Exercises 1 Prone Exercise Name Ys, Ts, Ws Side bilateral Resistance bodyweight Reps/Minutes 2x5 ea Comments Pt prone on treatment table, with UEs hanging down to floor Standing Exercises 8 Standing Exercise Name Serratus punch Side left Resistance green TB Reps/Minutes 2x10 6 Standing Exercise Name Lateral raises Side bilateral Resistance 1# Equipment Used DBs Reps/Minutes 2x10 ea 7 Standing Exercise Name Front raises Side bilateral Resistance 2# Equipment Used DBs Reps/Minutes 2x10 ea 5 Standing Exercise Name TB rows Side bilateral Equipment Used blueberry TB Reps/Minutes 2x15 4 Standing Exercise Name Shoulder ER and IR at 0 deg of shoulder ABD Side left Equipment Used orange TB Reps/Minutes 2x15 ea 3 Standing Exercise Name MB wall 1/2 clock taps Side left Equipment Used yellow MB Reps/Minutes 2x5 Comments from hip to overhead (full shoulder ABD ROM) and back to hip = 1 rep 2 Standing Exercise Name Ball on wall ABCs Side left Equipment Used small yellow ball Reps/Minutes x1 1 Standing Exercise Name Wall clocks Side bilateral Equipment Used level 2 theraband Reps/Minutes 2x5 PT-OP-T Assessment and Plan Start: 03/24/23 13:44 Freq: Status: Active Protocol: Document 03/30/23 15:57 AB (Rec: 03/30/23 16:09 AB [id number]) Physical Therapy Assessment Assessment Summary Assessment The pt was progressed further by adding additional RTC and periscapular musculature strengthening exercises in order to improve shoulder strength and mobility and improve his symptoms. Based on good tolerance to last visit, theraband ER and IR exercise was added to HEP, with handout provided to the pt. He requires occasional verbal cues for proper posture or form with exercises, but is able to easily correct. The pt continues to benefit from skilled PT to improve his symptoms, as per his POC. Physical Therapy Plan Next Visit Focus/Plan Next Note Type Treatment Note Next Visit Plan Assess tolerance to today's session. Progress by adding resistance to current exercises.
--- NOTE | 2023-04-04 14:49 | PT.OTN ---
Current Diagnoses Other shoulder lesions, left shoulder (04/04/23) Physical Therapy Treatment Note PT-OP-A Visit Information Start: 03/24/23 13:44 Freq: Status: Active Protocol: Document 04/04/23 13:54 AB (Rec: 04/04/23 14:48 AB [id number]) Out-Patient Physical Therapy Visit Information Visit Information Visit Type Treatment Note Visit Start Time 13:45 Visit Stop Time 14:30 Total Visit Minutes 45 Visit Number 4 Number of RUBBING BED OPERATOR Visits 0 PT-OP-B Current Condition Start: 03/24/23 13:44 Freq: Status: Active Protocol: Document 03/24/23 13:46 AB (Rec: 03/24/23 15:25 AB [id number]) Current Condition History of Current Condition Onset Date Chronic Current Complaints Sharp pain: 3-4/10 at worst, 0 /10 at best History of Current Condition Pt reports he sufferred a left shoulder dislocation, and has started to bother him again over the last year. He has pain when he rolls onto his left shoulder or when he has to drive more than 45 min, mopping, carrying heavy items (i.e. gorceries). Pt has tried ice, Tylenol with some relief short term. Prior Treatments and Tests None Future Testing and Treatments Planned No other referrals at this time. Treatment Goals Patient/Caregiver Goals To improve his symptoms and avoid further aggravation. Prior Functional Status Baseline Function- ADL's Independent Baseline Function- Mobility Independent Current Functional Impairments (Reported) Functional Limitations- ADL's No limitations at the moment, but has pain with activities listed above. PT-OP-C Subjective Start: 03/24/23 13:44 Freq: Status: Active Protocol: Document 04/04/23 13:54 AB (Rec: 04/04/23 14:48 AB [id number]) OP-PT Subjective Patient Comments Patient Comments Pt reports he recalls only one instance of pain when he was in the car, but thinks his symptoms have been better overall. Patient Reported Progress Improving PT-OP-J Posture/Palpation/Skin Start: 03/24/23 13:44 Freq: Status: Active Protocol: Document 03/24/23 13:46 AB (Rec: 03/24/23 15:25 AB [id number]) Posture Evaluation Position Sitting Evaluation View Lateral T-Spine Posture Increased Kyphosis Palpation Assessment Location One Palpation Location Left shoulder Palpation Findings None/Normal Palpation Details Pt denies TTP PT-OP-K Range of Motion Start: 03/24/23 13:44 Freq: Status: Active Protocol: Document 03/24/23 13:46 AB (Rec: 03/24/23 15:25 AB [id number]) Shoulder Goniometric Range of Motion Shoulder Right Active Shoulder ROM WFL Yes Testing Position Sitting Flexion 140 Abduction 155 External Rotation at 0 degrees Abduction 65 Internal Rotation Behind Back (text) T12 Comments Functional ER: T3 Pt reports feeling of muscle stretch with all motions Left Active Shoulder ROM WFL Yes Testing Position Sitting Flexion 138 Abduction 143 External Rotation at 0 degrees Abduction 50 Internal Rotation Behind Back (text) T12 Comments Functional ER: T3 Pain with all motions except ER at 0 deg of ABD PT-OP-L Special Tests Start: 03/24/23 13:44 Freq: Status: Active Protocol: Document 03/24/23 13:46 AB (Rec: 03/24/23 15:25 AB [id number]) Special Tests Shoulder Special Tests Lift-Off Rotator Cuff Test Results negative Empty Can Test Results negative [place] Impingement Test Results positive PT-OP-M Strength Start: 03/24/23 13:44 Freq: Status: Active Protocol: Document 03/24/23 13:46 AB (Rec: 03/24/23 15:25 AB [id number]) Shoulder Strength Shoulder Manual Muscle Testing Right Flexion 5 Normal Extension 5 Normal Abduction (C5) 5 Normal External Rotation 5 Normal Internal Rotation 5 Normal Left Flexion 4+ Good+ Extension 5 Normal Abduction (C5) 4+ Good+ External Rotation 5 Normal Internal Rotation 5 Normal Comments Pain with ABD MMT testing Elbow/Forearm Strength Elbow and Forearm Manual Muscle Testing Right Flexion (C6) 5 Normal Extension (C7) 5 Normal Left Flexion (C6) 5 Normal Extension (C7) 5 Normal PT-OP-Q Treatments Start: 03/24/23 13:44 Freq: Status: Active Protocol: Document 04/04/23 13:54 AB (Rec: 04/04/23 14:48 AB [id number]) Cardio Equipment Upper Body Ergometer (UBE) Duration (Minutes) 5 Other 2.5 fwd, 2.5 bwd Therapeutic Exercises Prone Exercises 1 Prone Exercise Name Ys, Ts, Ws Side bilateral Resistance bodyweight Reps/Minutes 2x5 ea Standing Exercises 9 Standing Exercise Name Cheerleaders Side bilateral Resistance level 2 TB Reps/Minutes 2x5ea 8 Standing Exercise Name Serratus punch Side left Resistance [place] green TB Equipment Used 2x10 6 Standing Exercise Name Lateral raises Side bilateral Resistance 2# Equipment Used DBs Reps/Minutes 2x10 ea 7 Standing Exercise Name Front raises Side bilateral Resistance 2# Equipment Used DBs Reps/Minutes 2x10ea 5 Standing Exercise Name TB rows Side bilateral Equipment Used blueberry TB Reps/Minutes 2x15 4 Standing Exercise Name Shldr ER and IR at 0D of ABD Side left Equipment Used [place] green TB Reps/Minutes 2x15 ea 3 Standing Exercise Name MB on wall 1/2 clock taps Side left Equipment Used yellow 2.2# MB Reps/Minutes 2x5 Comments from hip to overhead (full shldr ABD) 2 Standing Exercise Name Ball on wall ABCs Side left Equipment Used small yellow ball Reps/Minutes x1 1 Standing Exercise Name Wall clocks Side bilateral Resistance level 2 theraband Reps/Minutes 2x5 PT-OP-T Assessment and Plan Start: 03/24/23 13:44 Freq: Status: Active Protocol: Document 04/04/23 13:54 AB (Rec: 04/04/23 14:48 AB [id number]) Physical Therapy Assessment Assessment Summary Assessment Continued with last visit's exercise additions, with the pt demonstrating good tolerance and form; requiring minimal verbal cues throughout . He was progressed by adding resistance to these exercises, as noted above. The pt would benefit from continued progression next visit based on tolerance to today's session. Physical Therapy Plan Next Visit Focus/Plan Next Note Type Treatment Note Next Visit Plan Progress as tolerated by adding higher level exercises.
--- NOTE | 2023-04-06 15:00 | PT.OTN ---
Current Diagnoses Other shoulder lesions, left shoulder (04/06/23) Physical Therapy Treatment Note PT-OP-A Visit Information Start: 03/24/23 13:44 Freq: Status: Active Protocol: Document 04/06/23 13:03 AB (Rec: 04/06/23 14:59 AB [id number]) Out-Patient Physical Therapy Visit Information Visit Information Visit Type Treatment Note Visit Start Time 13:00 Visit Stop Time 13:45 Total Visit Minutes 45 Visit Number 5 Number of EXTRUSION PRESS ADJUSTER Visits 0 PT-OP-B Current Condition Start: 03/24/23 13:44 Freq: Status: Active Protocol: Document 03/24/23 13:46 AB (Rec: 03/24/23 15:25 AB [id number]) Current Condition History of Current Condition Onset Date Chronic Current Complaints Sharp pain: 3-4/10 at worst, 0 /10 at best History of Current Condition Pt reports he sufferred a left shoulder dislocation, and has started to bother him again over the last year. He has pain when he rolls onto his left shoulder or when he has to drive more than 45 min, mopping, carrying heavy items (i.e. gorceries). Pt has tried ice, Tylenol with some relief short term. Prior Treatments and Tests None Future Testing and Treatments Planned No other referrals at this time. Treatment Goals Patient/Caregiver Goals To improve his symptoms and avoid further aggravation. Prior Functional Status Baseline Function- ADL's Independent Baseline Function- Mobility Independent Current Functional Impairments (Reported) Functional Limitations- ADL's No limitations at the moment, but has pain with activities listed above. PT-OP-C Subjective Start: 03/24/23 13:44 Freq: Status: Active Protocol: Document 04/06/23 13:03 AB (Rec: 04/06/23 14:59 AB [id number]) OP-PT Subjective Patient Comments Patient Comments He reports he continues with twinges in his left shoulder, which he has noticed usually occur when he has been sitting for a while. Patient Reported Progress Improving PT-OP-J Posture/Palpation/Skin Start: 03/24/23 13:44 Freq: Status: Active Protocol: Document 03/24/23 13:46 AB (Rec: 03/24/23 15:25 AB [id number]) Posture Evaluation Position Sitting Evaluation View Lateral T-Spine Posture Increased Kyphosis Palpation Assessment Location One Palpation Location Left shoulder Palpation Findings None/Normal Palpation Details Pt denies TTP PT-OP-K Range of Motion Start: 03/24/23 13:44 Freq: Status: Active Protocol: Document 03/24/23 13:46 AB (Rec: 03/24/23 15:25 AB [id number]) Shoulder Goniometric Range of Motion Shoulder Right Active Shoulder ROM WFL Yes Testing Position Sitting Flexion 140 Abduction 155 External Rotation at 0 degrees Abduction 65 Internal Rotation Behind Back (text) T12 Comments Functional ER: T3 Pt reports feeling of muscle stretch with all motions Left Active Shoulder ROM WFL Yes Testing Position Sitting Flexion 138 Abduction 143 External Rotation at 0 degrees Abduction 50 Internal Rotation Behind Back (text) T12 Comments Functional ER: T3 Pain with all motions except ER at 0 deg of ABD PT-OP-L Special Tests Start: 03/24/23 13:44 Freq: Status: Active Protocol: Document 03/24/23 13:46 AB (Rec: 03/24/23 15:25 AB [id number]) Special Tests Shoulder Special Tests Lift-Off Rotator Cuff Test Results negative Empty Can Test Results negative [place] Impingement Test Results positive PT-OP-M Strength Start: 03/24/23 13:44 Freq: Status: Active Protocol: Document 03/24/23 13:46 AB (Rec: 03/24/23 15:25 AB [id number]) Shoulder Strength Shoulder Manual Muscle Testing Right Flexion 5 Normal Extension 5 Normal Abduction (C5) 5 Normal External Rotation 5 Normal Internal Rotation 5 Normal Left Flexion 4+ Good+ Extension 5 Normal Abduction (C5) 4+ Good+ External Rotation 5 Normal Internal Rotation 5 Normal Comments Pain with ABD MMT testing Elbow/Forearm Strength Elbow and Forearm Manual Muscle Testing Right Flexion (C6) 5 Normal Extension (C7) 5 Normal Left Flexion (C6) 5 Normal Extension (C7) 5 Normal PT-OP-Q Treatments Start: 03/24/23 13:44 Freq: Status: Active Protocol: Document 04/06/23 13:03 AB (Rec: 04/06/23 14:59 AB [id number]) Cardio Equipment Upper Body Ergometer (UBE) Duration (Minutes) 5 Other 2.5 fwd, 2.5 bwd Therapeutic Exercises Prone Exercises 1 Prone Exercise Name Ys, Ts, Ws Side bilateral Resistance bodyweight Reps/Minutes 2x5 ea Standing Exercises 9 Standing Exercise Name D1 and D2 flexion and extension Side left Resistance peach TB Reps/Minutes 1x10 ea 8 Standing Exercise Name Serratus punch Side left Resistance [place] TB Equipment Used 2x15 6 Standing Exercise Name Ball on wall UE lift offs Side left Equipment Used blue afghan ball Reps/Minutes 2x10 Comments Roll ball up wall to full shldr flex, then lift off with straight arm x10 5 Standing Exercise Name TB rows Side bilateral Equipment Used plum TB Reps/Minutes 2x15 4 Standing Exercise Name Shldr ER and IR at 0D of ABD Side left Equipment Used [place] green TB Reps/Minutes 2x15 ea PT-OP-T Assessment and Plan Start: 03/24/23 13:44 Freq: Status: Active Protocol: Document 04/06/23 13:03 AB (Rec: 04/06/23 14:59 AB [id number]) Physical Therapy Assessment Goals Five Impairment elevated QUICKDASH Short Term Goal (STG) Pt's QuickDASH score to improve to 19% impairment or better to show improving symptoms and QOL. STG Duration 4 weeks Remote Sensing Scientist Goal (LTG) Pt's QuickDASH score to improve to 12% impairment or better to show resolving symptoms and improved QOL. Four Impairment LUE weakness Short Term Goal (STG) Pt's LUE MMT scores to improve to 5/5 to demonstrate improving UE strength to perform functional activities. STG Duration 4 weeks Remote Sensing Scientist Goal (LTG) Pt's LUE MMT scores to improve to 5/5 without symptoms to demonstrate improved UE strength to perform ADLS, IADLs, and recreational activities. Three Impairment ROM deficits Short Term Goal (STG) Pt's left shoulder ER AROM to improve to 60 degrees or better to show improving ROM to perform ADLs and IADLs with increased ease. STG Duration 4 weeks Usp Goal (LTG) Pt's left shoulder flexion AROM to improve to 65 degrees or better to show improved ROM to perform ADLs and IADLs with increased ease. LTG Duration 6 weeks Two Impairment ROM deficits Short Term Goal (STG) Pt's left shoulder ABD AROM to improve to 160 degrees or better to show improving ROM to perform ADLs and IADLs with increased ease. STG Duration 4 weeks Remote Sensing Scientist Goal (LTG) Pt's left shoulder flexion AROM to improve to 170 degrees or better to show improved ROM to perform ADLs and IADLs with increased ease. LTG Duration 6 weeks One Impairment ROM deficits Short Term Goal (STG) Pt's bilateral shoulder flexion AROM to improve to 150 degrees or better to show improving ROM to perform ADLs and IADLs with increased ease. STG Duration 4 weeks Remote Sensing Scientist Goal (LTG) Pt's bilateral shoulder flexion AROM to improve to 165 degrees or better to show improved ROM to perform ADLs and IADLs with increased ease. LTG Duration 6 weeks Assessment Summary Assessment The pt was progressed today by adding RTC and periscapular strengthening exercises as well as by adding resistance to current exercises. The pt had good tolerance to D1 and D2 flexion and extension, though he required verbal cues to go through full ROM. Theraband overhead press with shoulder external rotation was trialed, however this increased the pt's subacromial pain. Dumbbell overhead press was then trialed with decreased symptoms, but still provoking. Therefore, shoulder flexion lift offs with afghan ball were performed to improve overhead ROM without resistance, with much improved tolerance by the pt. The pt would continue to benefit from skilled PT to improve his deficits and increase his ability to perform ADLs and IADLs without symptoms. Physical Therapy Plan Next Visit Focus/Plan Next Note Type Treatment Note Next Visit Plan Assess tolerance to today's progressions. Add KB 90/90 carry.
--- NOTE | 2023-04-11 15:07 | PT.OTN ---
Current Diagnoses Other shoulder lesions, left shoulder (04/11/23) Physical Therapy Treatment Note PT-OP-A Visit Information Start: 03/24/23 13:44 Freq: Status: Active Protocol: Document 04/11/23 13:49 AB (Rec: 04/11/23 15:07 AB [id number]) Out-Patient Physical Therapy Visit Information Visit Information Visit Type Treatment Note Visit Start Time 13:45 Visit Stop Time 14:30 Total Visit Minutes 45 Visit Number 6 Number of RIGGING UP MAN Visits 0 PT-OP-B Current Condition Start: 03/24/23 13:44 Freq: Status: Active Protocol: Document 03/24/23 13:46 AB (Rec: 03/24/23 15:25 AB [id number]) Current Condition History of Current Condition Onset Date Chronic Current Complaints Sharp pain: 3-4/10 at worst, 0 /10 at best History of Current Condition Pt reports he sufferred a left shoulder dislocation, and has started to bother him again over the last year. He has pain when he rolls onto his left shoulder or when he has to drive more than 45 min, mopping, carrying heavy items (i.e. gorceries). Pt has tried ice, Tylenol with some relief short term. Prior Treatments and Tests None Future Testing and Treatments Planned No other referrals at this time. Treatment Goals Patient/Caregiver Goals To improve his symptoms and avoid further aggravation. Prior Functional Status Baseline Function- ADL's Independent Baseline Function- Mobility Independent Current Functional Impairments (Reported) Functional Limitations- ADL's No limitations at the moment, but has pain with activities listed above. PT-OP-C Subjective Start: 03/24/23 13:44 Freq: Status: Active Protocol: Document 04/11/23 13:49 AB (Rec: 04/11/23 15:07 AB [id number]) OP-PT Subjective Patient Comments Patient Comments The pt reports feeling like it was Patient Reported Progress Worse PT-OP-J Posture/Palpation/Skin Start: 03/24/23 13:44 Freq: Status: Active Protocol: Document 03/24/23 13:46 AB (Rec: 03/24/23 15:25 AB [id number]) Posture Evaluation Position Sitting Evaluation View Lateral T-Spine Posture Increased Kyphosis Palpation Assessment Location One Palpation Location Left shoulder Palpation Findings None/Normal Palpation Details Pt denies TTP PT-OP-K Range of Motion Start: 03/24/23 13:44 Freq: Status: Active Protocol: Document 03/24/23 13:46 AB (Rec: 03/24/23 15:25 AB [id number]) Shoulder Goniometric Range of Motion Shoulder Right Active Shoulder ROM WFL Yes Testing Position Sitting Flexion 140 Abduction 155 External Rotation at 0 degrees Abduction 65 Internal Rotation Behind Back (text) T12 Comments Functional ER: T3 Pt reports feeling of muscle stretch with all motions Left Active Shoulder ROM WFL Yes Testing Position Sitting Flexion 138 Abduction 143 External Rotation at 0 degrees Abduction 50 Internal Rotation Behind Back (text) T12 Comments Functional ER: T3 Pain with all motions except ER at 0 deg of ABD PT-OP-L Special Tests Start: 03/24/23 13:44 Freq: Status: Active Protocol: Document 03/24/23 13:46 AB (Rec: 03/24/23 15:25 AB [id number]) Special Tests Shoulder Special Tests Lift-Off Rotator Cuff Test Results negative Empty Can Test Results negative [place] Impingement Test Results positive PT-OP-M Strength Start: 03/24/23 13:44 Freq: Status: Active Protocol: Document 03/24/23 13:46 AB (Rec: 03/24/23 15:25 AB [id number]) Shoulder Strength Shoulder Manual Muscle Testing Right Flexion 5 Normal Extension 5 Normal Abduction (C5) 5 Normal External Rotation 5 Normal Internal Rotation 5 Normal Left Flexion 4+ Good+ Extension 5 Normal Abduction (C5) 4+ Good+ External Rotation 5 Normal Internal Rotation 5 Normal Comments Pain with ABD MMT testing Elbow/Forearm Strength Elbow and Forearm Manual Muscle Testing Right Flexion (C6) 5 Normal Extension (C7) 5 Normal Left Flexion (C6) 5 Normal Extension (C7) 5 Normal PT-OP-Q Treatments Start: 03/24/23 13:44 Freq: Status: Active Protocol: Document 04/11/23 13:49 AB (Rec: 04/11/23 15:07 AB [id number]) Cardio Equipment Upper Body Ergometer (UBE) Duration (Minutes) 5 Other 2.5 fwd, 2.5 bwd Therapeutic Exercises Standing Exercises 8 Standing Exercise Name Serratus punch Side left Resistance [place] green TB Equipment Used 2x15 6 Standing Exercise Name Ball on wall UE lift offs Side left Equipment Used blue [place] ball Reps/Minutes 2x10 Comments Roll ball up wall to full shldr flex, then lift off with straight arm x10 5 Standing Exercise Name TB rows Side bilateral Equipment Used plum TB Reps/Minutes 2x15 4 Standing Exercise Name Shldr ER and IR at 0D of ABD Side left Equipment Used [place] green TB Reps/Minutes 2x15 ea Other Exercises 1/2 Kneel Tspine rotations Side left Equipment Used blue [place] ball, foam pad Reps/Minutes 1x10 Comments right knee down on foam pad, left knee holding ball against wall Shoulder taps Other Exercise Name Shoulder taps from high plinth Side bilateral Reps/Minutes 2x10ea 90/90 DB carry Side left Resistance 5# Equipment Used DB Reps/Minutes x 2 laps Comments shldr in 90D of flex, elbow in 90D of flex PT-OP-T Assessment and Plan Start: 03/24/23 13:44 Freq: Status: Active Protocol: Document 04/11/23 13:49 AB (Rec: 04/11/23 15:07 AB [id number]) Physical Therapy Assessment Goals Five Impairment elevated QUICKDASH Short Term Goal (STG) Pt's QuickDASH score to improve to 19% impairment or better to show improving symptoms and QOL. STG Duration 4 weeks Pipe Testing Technician Goal (LTG) Pt's QuickDASH score to improve to 12% impairment or better to show resolving symptoms and improved QOL. Four Impairment LUE weakness Short Term Goal (STG) Pt's LUE MMT scores to improve to 5/5 to demonstrate improving UE strength to perform functional activities. STG Duration 4 weeks Mcfp Goal (LTG) Pt's LUE MMT scores to improve to 5/5 without symptoms to demonstrate improved UE strength to perform ADLS, IADLs, and recreational activities. Three Impairment ROM deficits Short Term Goal (STG) Pt's left shoulder ER AROM to improve to 60 degress or better to show improving ROM to perform ADLs and IADLs with increased ease. STG Duration 4 weeks Pipe Testing Technician Goal (LTG) Pt's left shoulder flexion AROM to improve to 65 degress or better to show improved ROM to perform ADLs and IADLs with increased ease. LTG Duration 6 weeks Two Impairment ROM deficits Short Term Goal (STG) Pt's left shoulder ABD AROM to improve to 160 degress or better to show improving ROM to perform ADLs and IADLs with increased ease. STG Duration 4 weeks Mcfp Goal (LTG) Pt's left shoulder flexion AROM to improve to 170 degress or better to show improved ROM to perform ADLs and IADLs with increased ease. LTG Duration 6 weeks One Impairment ROM deficits Short Term Goal (STG) Pt's bilateral shoulder flexion AROM to improve to 150 degress or better to show improving ROM to perform ADLs and IADLs with increased ease. STG Duration 4 weeks Pipe Testing Technician Goal (LTG) Pt's bilateral shoulder flexion AROM to improve to 165 degress or better to show improved ROM to perform ADLs and IADLs with increased ease. LTG Duration 6 weeks Assessment Summary Assessment Due to reports of increased pain and discomfort after last session, D1 and D2 flexion and extension were not performed today. The pt has mild pain with full flexion and full ABD, but none with ER and IR However, new shoulder stability exercises were added to help improve the pt's symptoms. The pt reported no discomfort with new exercises. Assess the pt's tolerance to today's visit next time to determine whether the pt can be progressed further. Physical Therapy Plan Frequency and Duration Frequency of Treatment 2x/Week Duration of treatment (weeks) 6 Plan of Care Start Date 03/24/23 Plan of Care End Date 05/05/23 Therapeutic Interventions Therapeutic Interventions Manual Therapy,Neuromuscular Re-education,Self-Care/Home Management,Soft Tissue Mobilization,Taping, Therapeutic Activities, Therapeutic Exercises Modalities Cold Pack/Ice Massage,Electric Stimulation Next Visit Focus/Plan Next Note Type Treatment Note Next Visit Plan Assess tolerance to today's session.
--- NOTE | 2023-04-13 17:19 | PT.OTN ---
Current Diagnoses Other shoulder lesions, left shoulder (04/13/23) Physical Therapy Treatment Note PT-OP-A Visit Information Start: 03/24/23 13:44 Freq: Status: Active Protocol: Document 04/13/23 13:53 AB (Rec: 04/13/23 17:19 AB [id number]) Out-Patient Physical Therapy Visit Information Visit Information Visit Type Treatment Note Visit Start Time 13:49 Visit Stop Time 14:30 Total Visit Minutes 41 Visit Number 7 Number of DENTAL TECHNOLOGY ADVISOR Visits 0 Evaluation Information Evaluation Date 03/24/23 PT-OP-B Current Condition Start: 03/24/23 13:44 Freq: Status: Active Protocol: Document 03/24/23 13:46 AB (Rec: 03/24/23 15:25 AB [id number]) Current Condition History of Current Condition Onset Date Chronic Current Complaints Sharp pain: 3-4/10 at worst, 0 /10 at best History of Current Condition Pt reports he sufferred a left shoulder dislocation, and has started to bother him again over the last year. He has pain when he rolls onto his left shoulder or when he has to drive more than 45 min, mopping, carrying heavy items (i.e. gorceries). Pt has tried ice, Tylenol with some relief short term. Prior Treatments and Tests None Future Testing and Treatments Planned No other referrals at this time. Treatment Goals Patient/Caregiver Goals To improve his symptoms and avoid further aggravation. Prior Functional Status Baseline Function- ADL's Independent Baseline Function- Mobility Independent Current Functional Impairments (Reported) Functional Limitations- ADL's No limitations at the moment, but has pain with activities listed above. PT-OP-C Subjective Start: 03/24/23 13:44 Freq: Status: Active Protocol: Document 04/13/23 13:53 AB (Rec: 04/13/23 17:19 AB [id number]) OP-PT Subjective Patient Comments Patient Comments The pt reports Patient Reported Progress Improving PT-OP-J Posture/Palpation/Skin Start: 03/24/23 13:44 Freq: Status: Active Protocol: Document 03/24/23 13:46 AB (Rec: 03/24/23 15:25 AB [id number]) Posture Evaluation Position Sitting Evaluation View Lateral T-Spine Posture Increased Kyphosis Palpation Assessment Location One Palpation Location Left shoulder Palpation Findings None/Normal Palpation Details Pt denies TTP PT-OP-K Range of Motion Start: 03/24/23 13:44 Freq: Status: Active Protocol: Document 03/24/23 13:46 AB (Rec: 03/24/23 15:25 AB [id number]) Shoulder Goniometric Range of Motion Shoulder Right Active Shoulder ROM WFL Yes Testing Position Sitting Flexion 140 Abduction 155 External Rotation at 0 degrees Abduction 65 Internal Rotation Behind Back (text) T12 Comments Functional ER: T3 Pt reports feeling of muscle stretch with all motions Left Active Shoulder ROM WFL Yes Testing Position Sitting Flexion 138 Abduction 143 External Rotation at 0 degrees Abduction 50 Internal Rotation Behind Back (text) T12 Comments Functional ER: T3 Pain with all motions except ER at 0 deg of ABD PT-OP-L Special Tests Start: 03/24/23 13:44 Freq: Status: Active Protocol: Document 03/24/23 13:46 AB (Rec: 03/24/23 15:25 AB [id number]) Special Tests Shoulder Special Tests Lift-Off Rotator Cuff Test Results negative Empty Can Test Results negative [place] Impingement Test Results positive PT-OP-M Strength Start: 03/24/23 13:44 Freq: Status: Active Protocol: Document 03/24/23 13:46 AB (Rec: 03/24/23 15:25 AB [id number]) Shoulder Strength Shoulder Manual Muscle Testing Right Flexion 5 Normal Extension 5 Normal Abduction (C5) 5 Normal External Rotation 5 Normal Internal Rotation 5 Normal Left Flexion 4+ Good+ Extension 5 Normal Abduction (C5) 4+ Good+ External Rotation 5 Normal Internal Rotation 5 Normal Comments Pain with ABD MMT testing Elbow/Forearm Strength Elbow and Forearm Manual Muscle Testing Right Flexion (C6) 5 Normal Extension (C7) 5 Normal Left Flexion (C6) 5 Normal Extension (C7) 5 Normal PT-OP-Q Treatments Start: 03/24/23 13:44 Freq: Status: Active Protocol: Document 04/13/23 13:53 AB (Rec: 04/13/23 17:19 AB [id number]) Cardio Equipment Upper Body Ergometer (UBE) Duration (Minutes) 5 Other 2.5 fwd, 2.5 bwd Therapeutic Exercises Prone Exercises 1 Prone Exercise Name Ys, Ts, Ws Side bilateral Resistance no weight Reps/Minutes 2x5 ea Standing Exercises Ball on wall perturbations Side left Equipment Used blue [place] ball Reps/Minutes 2x20 sec Comments Arm straight with shldr at 90D of flex; PT gives perturbations to bal 8 Standing Exercise Name Serratus punch Side left Resistance [place] TB Equipment Used 2x15 6 Standing Exercise Name Ball on wall UE lift offs Side left Equipment Used blue [place] ball Reps/Minutes 1x10 Comments Roll ball up wall to full shldr flex, then lift off with straight arm x10 4 Standing Exercise Name Shldr ER and IR at 90D shoulder flex, 90D Side left Equipment Used level 2 teal TB Reps/Minutes 2x15 ea Comments Elbow is resting on wall; bottom of band is being stepped on by pt's foot Other Exercises Shoulder taps Other Exercise Name Shoulder taps from high plinth Side bilateral Reps/Minutes 2x10ea 90/90 DB carry Side left Resistance 5# Equipment Used DB Reps/Minutes x 2 laps Comments shldr in 90D of flex, elbow in 90D of flex PT-OP-T Assessment and Plan Start: 03/24/23 13:44 Freq: Status: Active Protocol: Document 04/13/23 13:53 AB (Rec: 04/13/23 17:19 AB [id number]) Physical Therapy Assessment Goals Five Impairment elevated QUICKDASH Short Term Goal (STG) Pt's QuickDASH score to improve to 19% impairment or better to show improving symptoms and QOL. STG Duration 4 weeks Instrumentation And Controls Designer Goal (LTG) Pt's QuickDASH score to improve to 12% impairment or better to show resolving symptoms and improved QOL. Four Impairment LUE weakness Short Term Goal (STG) Pt's LUE MMT scores to improve to 5/5 to demonstrate improving UE strength to perform functional activities. STG Duration 4 weeks Instrumentation And Controls Designer Goal (LTG) Pt's LUE MMT scores to improve to 5/5 without symptoms to demonstrate improved UE strength to perform ADLS, IADLs, and recreational activities. Three Impairment ROM deficits Short Term Goal (STG) Pt's left shoulder ER AROM to improve to 60 degress or better to show improving ROM to perform ADLs and IADLs with increased ease. STG Duration 4 weeks Correction Goal (LTG) Pt's left shoulder flexion AROM to improve to 65 degress or better to show improved ROM to perform ADLs and IADLs with increased ease. LTG Duration 6 weeks Two Impairment ROM deficits Short Term Goal (STG) Pt's left shoulder ABD AROM to improve to 160 degress or better to show improving ROM to perform ADLs and IADLs with increased ease. STG Duration 4 weeks Instrumentation And Controls Designer Goal (LTG) Pt's left shoulder flexion AROM to improve to 170 degress or better to show improved ROM to perform ADLs and IADLs with increased ease. LTG Duration 6 weeks One Impairment ROM deficits Short Term Goal (STG) Pt's bilateral shoulder flexion AROM to improve to 150 degress or better to show improving ROM to perform ADLs and IADLs with increased ease. STG Duration 4 weeks Instrumentation And Controls Designer Goal (LTG) Pt's bilateral shoulder flexion AROM to improve to 165 degress or better to show improved ROM to perform ADLs and IADLs with increased ease. LTG Duration 6 weeks Assessment Summary Assessment The pt was progressed today by adding shoulder strength and stability exercises. Physical Therapy Plan Frequency and Duration Frequency of Treatment 2x/Week Duration of treatment (weeks) 6 Plan of Care Start Date 03/24/23 Plan of Care End Date 05/05/23 Therapeutic Interventions Therapeutic Interventions Manual Therapy,Neuromuscular Re-education,Self-Care/Home Management,Soft Tissue Mobilization,Taping, Therapeutic Activities, Therapeutic Exercises Modalities Cold Pack/Ice Massage,Electric Stimulation Next Visit Focus/Plan Next Note Type Treatment Note Next Visit Plan Continue progressing by adding RTC and periscapular strengthening exercises, as detailed above. The pt had good tolerance, as he denied any pain symptoms throughout the session. The pt is demonstrating good progress towards his goals and continues to benefit from skilled PT to return to his PLOF.
--- NOTE | 2023-04-19 14:39 | PT.OTN ---
Current Diagnoses Other shoulder lesions, left shoulder (04/19/23) Physical Therapy Treatment Note PT-OP-A Visit Information Start: 03/24/23 13:44 Freq: Status: Active Protocol: Document 04/19/23 14:05 AB (Rec: 04/19/23 14:38 AB [id number]) Out-Patient Physical Therapy Visit Information Visit Information Visit Type Treatment Note Visit Start Time 13:48 Visit Stop Time 14:30 Total Visit Minutes 42 Visit Number 8 Number of BAND DIRECTOR Visits 0 Evaluation Information Evaluation Date 03/24/23 Precautions Precautions DM Type 2, HTN, hyperlipidemia PT-OP-B Current Condition Start: 03/24/23 13:44 Freq: Status: Active Protocol: Document 03/24/23 13:46 AB (Rec: 03/24/23 15:25 AB [id number]) Current Condition History of Current Condition Onset Date Chronic Current Complaints Sharp pain: 3-4/10 at worst, 0 /10 at best History of Current Condition Pt reports he sufferred a left shoulder dislocation, and has started to bother him again over the last year. He has pain when he rolls onto his left shoulder or when he has to drive more than 45 min, mopping, carrying heavy items (i.e. gorceries). Pt has tried ice, Tylenol with some relief short term. Prior Treatments and Tests None Future Testing and Treatments Planned No other referrals at this time. Treatment Goals Patient/Caregiver Goals To improve his symptoms and avoid further aggravation. Prior Functional Status Baseline Function- ADL's Independent Baseline Function- Mobility Independent Current Functional Impairments (Reported) Functional Limitations- ADL's No limitations at the moment, but has pain with activities listed above. PT-OP-C Subjective Start: 03/24/23 13:44 Freq: Status: Active Protocol: Document 04/19/23 14:05 AB (Rec: 04/19/23 14:38 AB [id number]) OP-PT Subjective Patient Comments Patient Comments The pt reports he is feeling like his RUE is stronger, but states he continues to have pain that wakes him up at night. Patient Reported Progress Improving PT-OP-J Posture/Palpation/Skin Start: 03/24/23 13:44 Freq: Status: Active Protocol: Document 03/24/23 13:46 AB (Rec: 03/24/23 15:25 AB [id number]) Posture Evaluation Position Sitting Evaluation View Lateral T-Spine Posture Increased Kyphosis Palpation Assessment Location One Palpation Location Left shoulder Palpation Findings None/Normal Palpation Details Pt denies TTP PT-OP-K Range of Motion Start: 03/24/23 13:44 Freq: Status: Active Protocol: Document 03/24/23 13:46 AB (Rec: 03/24/23 15:25 AB [id number]) Shoulder Goniometric Range of Motion Shoulder Right Active Shoulder ROM WFL Yes Testing Position Sitting Flexion 140 Abduction 155 External Rotation at 0 degrees Abduction 65 Internal Rotation Behind Back (text) T12 Comments Functional ER: T3 Pt reports feeling of muscle stretch with all motions Left Active Shoulder ROM WFL Yes Testing Position Sitting Flexion 138 Abduction 143 External Rotation at 0 degrees Abduction 50 Internal Rotation Behind Back (text) T12 Comments Functional ER: T3 Pain with all motions except ER at 0 deg of ABD PT-OP-L Special Tests Start: 03/24/23 13:44 Freq: Status: Active Protocol: Document 03/24/23 13:46 AB (Rec: 03/24/23 15:25 AB [id number]) Special Tests Shoulder Special Tests Lift-Off Rotator Cuff Test Results negative Empty Can Test Results negative [place] Impingement Test Results positive PT-OP-M Strength Start: 03/24/23 13:44 Freq: Status: Active Protocol: Document 03/24/23 13:46 AB (Rec: 03/24/23 15:25 AB [id number]) Shoulder Strength Shoulder Manual Muscle Testing Right Flexion 5 Normal Extension 5 Normal Abduction (C5) 5 Normal External Rotation 5 Normal Internal Rotation 5 Normal Left Flexion 4+ Good+ Extension 5 Normal Abduction (C5) 4+ Good+ External Rotation 5 Normal Internal Rotation 5 Normal Comments Pain with ABD MMT testing Elbow/Forearm Strength Elbow and Forearm Manual Muscle Testing Right Flexion (C6) 5 Normal Extension (C7) 5 Normal Left Flexion (C6) 5 Normal Extension (C7) 5 Normal PT-OP-Q Treatments Start: 03/24/23 13:44 Freq: Status: Active Protocol: Document 04/19/23 14:05 AB (Rec: 04/19/23 14:38 AB [id number]) Cardio Equipment Upper Body Ergometer (UBE) Duration (Minutes) 5 Other 2.5 fwd, 2.5 bwd Therapeutic Exercises Prone Exercises 1 Prone Exercise Name Ys, Ts, Ws Side bilateral Resistance no weight Reps/Minutes 2x8 ea Standing Exercises Front/lateral raises Standing Exercise Name front and lateral raises Side bilateral Resistance 3# Equipment Used DBs Reps/Minutes 2x10 ea 6 Standing Exercise Name Ball on wall UE lift offs Side left Equipment Used blue [place] ball Reps/Minutes 1x10 Comments Roll ball up wall to full shldr flex, then lift off with straight arm x10 5 Standing Exercise Name TB archers Side bilateral Equipment Used blueberry TB Reps/Minutes 2x15 ea Comments unilateral row + thoracic rotation 4 Standing Exercise Name Shldr ER and IR at 90D shoulder flex, 90D Side left Equipment Used level 2 teal TB Reps/Minutes 2x15 ea Comments Elbow is resting on wall; bottom of band is being stepped on by pt's foot Other Exercises Shoulder taps Other Exercise Name Shoulder taps from high plinth Side bilateral Reps/Minutes 2x10ea 90/90 DB carry Side left Resistance 5# Equipment Used DB Reps/Minutes x 2 laps Comments shldr in 90D of flex, elbow in 90D of flex PT-OP-T Assessment and Plan Start: 03/24/23 13:44 Freq: Status: Active Protocol: Document 04/19/23 14:05 AB (Rec: 04/19/23 14:38 AB [id number]) Physical Therapy Assessment Goals Five Impairment elevated QUICKDASH Short Term Goal (STG) Pt's QuickDASH score to improve to 19% impairment or better to show improving symptoms and QOL. STG Duration 4 weeks Brain Surgeon Goal (LTG) Pt's QuickDASH score to improve to 12% impairment or better to show resolving symptoms and improved QOL. Four Impairment LUE weakness Short Term Goal (STG) Pt's LUE MMT scores to improve to 5/5 to demonstrate improving UE strength to perform functional activities. STG Duration 4 weeks Halfway Goal (LTG) Pt's LUE MMT scores to improve to 5/5 without symptoms to demonstrate improved UE strength to perform ADLS, IADLs, and recreational activities. Three Impairment ROM deficits Short Term Goal (STG) Pt's left shoulder ER AROM to improve to 60 degress or better to show improving ROM to perform ADLs and IADLs with increased ease. STG Duration 4 weeks Brain Surgeon Goal (LTG) Pt's left shoulder flexion AROM to improve to 65 degress or better to show improved ROM to perform ADLs and IADLs with increased ease. LTG Duration 6 weeks Two Impairment ROM deficits Short Term Goal (STG) Pt's left shoulder ABD AROM to improve to 160 degress or better to show improving ROM to perform ADLs and IADLs with increased ease. STG Duration 4 weeks Halfway Goal (LTG) Pt's left shoulder flexion AROM to improve to 170 degress or better to show improved ROM to perform ADLs and IADLs with increased ease. LTG Duration 6 weeks One Impairment ROM deficits Short Term Goal (STG) Pt's bilateral shoulder flexion AROM to improve to 150 degress or better to show improving ROM to perform ADLs and IADLs with increased ease. STG Duration 4 weeks Halfway Goal (LTG) Pt's bilateral shoulder flexion AROM to improve to 165 degress or better to show improved ROM to perform ADLs and IADLs with increased ease. LTG Duration 6 weeks Assessment Summary Assessment Minimal changes were made to the pt's exercise program, however front and lateral raises were re-introduced to improve UE strength. TB rows were progressed to TB archers to incorporate Tspine rotation while strengthening persicapular muscles. The pt denied pain throughout session , but reports muscular fatigue . He continues to benefit from skilled PT, with progressions as tolerated. Physical Therapy Plan Frequency and Duration Frequency of Treatment 2x/Week Duration of treatment (weeks) 6 Plan of Care Start Date 03/24/23 Plan of Care End Date 05/05/23 Therapeutic Interventions Therapeutic Interventions Manual Therapy,Neuromuscular Re-education,Self-Care/Home Management,Soft Tissue Mobilization,Taping, Therapeutic Activities, Therapeutic Exercises Modalities Cold Pack/Ice Massage,Electric Stimulation Next Visit Focus/Plan Next Note Type Treatment Note Next Visit Plan Continue progressing by adding RTC and periscapular strengthening exercises, as tolerated.
--- NOTE | 2023-04-25 17:38 | PT.OTN ---
Current Diagnoses Other shoulder lesions, left shoulder (04/25/23) Physical Therapy Treatment Note PT-OP-A Visit Information Start: 03/24/23 13:44 Freq: Status: Active Protocol: Document 04/25/23 14:00 AB (Rec: 04/25/23 17:37 AB [id number]) Out-Patient Physical Therapy Visit Information Visit Information Visit Type Treatment Note Visit Start Time 13:45 Visit Stop Time 14:30 Total Visit Minutes 45 Visit Number 9 Number of SHIPFITTER APPRENTICE Visits 0 PT-OP-B Current Condition Start: 03/24/23 13:44 Freq: Status: Active Protocol: Document 03/24/23 13:46 AB (Rec: 03/24/23 15:25 AB [id number]) Current Condition History of Current Condition Onset Date Chronic Current Complaints Sharp pain: 3-4/10 at worst, 0 /10 at best History of Current Condition Pt reports he sufferred a left shoulder dislocation, and has started to bother him again over the last year. He has pain when he rolls onto his left shoulder or when he has to drive more than 45 min, mopping, carrying heavy items (i.e. gorceries). Pt has tried ice, Tylenol with some relief short term. Prior Treatments and Tests None Future Testing and Treatments Planned No other referrals at this time. Treatment Goals Patient/Caregiver Goals To improve his symptoms and avoid further aggravation. Prior Functional Status Baseline Function- ADL's Independent Baseline Function- Mobility Independent Current Functional Impairments (Reported) Functional Limitations- ADL's No limitations at the moment, but has pain with activities listed above. PT-OP-C Subjective Start: 03/24/23 13:44 Freq: Status: Active Protocol: Document 04/25/23 14:00 AB (Rec: 04/25/23 17:37 AB [id number]) OP-PT Subjective Patient Comments Patient Comments The pt report he had increased soreness after last visit, but report this resolved within the next 24 hours. PT-OP-J Posture/Palpation/Skin Start: 03/24/23 13:44 Freq: Status: Active Protocol: Document 03/24/23 13:46 AB (Rec: 03/24/23 15:25 AB [id number]) Posture Evaluation Position Sitting Evaluation View Lateral T-Spine Posture Increased Kyphosis Palpation Assessment Location One Palpation Location Left shoulder Palpation Findings None/Normal Palpation Details Pt denies TTP PT-OP-K Range of Motion Start: 03/24/23 13:44 Freq: Status: Active Protocol: Document 03/24/23 13:46 AB (Rec: 03/24/23 15:25 AB [id number]) Shoulder Goniometric Range of Motion Shoulder Right Active Shoulder ROM WFL Yes Testing Position Sitting Flexion 140 Abduction 155 External Rotation at 0 degrees Abduction 65 Internal Rotation Behind Back (text) T12 Comments Functional ER: T3 Pt reports feeling of muscle stretch with all motions Left Active Shoulder ROM WFL Yes Testing Position Sitting Flexion 138 Abduction 143 External Rotation at 0 degrees Abduction 50 Internal Rotation Behind Back (text) T12 Comments Functional ER: T3 Pain with all motions except ER at 0 deg of ABD PT-OP-L Special Tests Start: 03/24/23 13:44 Freq: Status: Active Protocol: Document 03/24/23 13:46 AB (Rec: 03/24/23 15:25 AB [id number]) Special Tests Shoulder Special Tests Lift-Off Rotator Cuff Test Results negative Empty Can Test Results negative [place] Impingement Test Results positive PT-OP-M Strength Start: 03/24/23 13:44 Freq: Status: Active Protocol: Document 03/24/23 13:46 AB (Rec: 03/24/23 15:25 AB [id number]) Shoulder Strength Shoulder Manual Muscle Testing Right Flexion 5 Normal Extension 5 Normal Abduction (C5) 5 Normal External Rotation 5 Normal Internal Rotation 5 Normal Left Flexion 4+ Good+ Extension 5 Normal Abduction (C5) 4+ Good+ External Rotation 5 Normal Internal Rotation 5 Normal Comments Pain with ABD MMT testing Elbow/Forearm Strength Elbow and Forearm Manual Muscle Testing Right Flexion (C6) 5 Normal Extension (C7) 5 Normal Left Flexion (C6) 5 Normal Extension (C7) 5 Normal PT-OP-Q Treatments Start: 03/24/23 13:44 Freq: Status: Active Protocol: Document 04/25/23 14:00 AB (Rec: 04/25/23 17:37 AB [id number]) Therapeutic Exercises Standing Exercises Body blade Standing Exercise Name ER/IR, fwd/bwd, up/down Side left Equipment Used yellow body blade Reps/Minutes 2x30 sec Front/lateral raises Standing Exercise Name front and lateral raises Side bilateral Resistance 3# Equipment Used DBs Reps/Minutes 2x10 ea 5 Standing Exercise Name TB archers Side bilateral Equipment Used blueberry TB Reps/Minutes 2x15 ea Comments unilateral row + thoracic rotation 4 Standing Exercise Name Shldr ER and IR at 90D shoulder flex, 90D Side left Equipment Used level 2 teal TB Reps/Minutes 2x15 ea Comments Elbow is resting on wall; bottom of band is being stepped on by pt's foot Other Exercises BOSU seesaws Side bilateral Equipment Used BOSU ball, low table Reps/Minutes 1x5, 1x10 ea Comments with blue side down, pt makes one side touch down then switches Shoulder taps Other Exercise Name Shoulder taps from high plinth Side bilateral Reps/Minutes 2x10ea 90/90 DB carry Side left Resistance 5# Equipment Used DB Reps/Minutes x 2 laps Comments shldr in 90D of flex, elbow in 90D of flex PT-OP-T Assessment and Plan Start: 03/24/23 13:44 Freq: Status: Active Protocol: Document 04/25/23 14:00 AB (Rec: 04/25/23 17:37 AB [id number]) Physical Therapy Assessment Goals Five Impairment elevated QUICKDASH Short Term Goal (STG) Pt's QuickDASH score to improve to 19% impairment or better to show improving symptoms and QOL. STG Duration 4 weeks Retirement Goal (LTG) Pt's QuickDASH score to improve to 12% impairment or better to show resolving symptoms and improved QOL. Four Impairment LUE weakness Short Term Goal (STG) Pt's LUE MMT scores to improve to 5/5 to demonstrate improving UE strength to perform functional activities. STG Duration 4 weeks Senior Audit Manager Goal (LTG) Pt's LUE MMT scores to improve to 5/5 without symptoms to demonstrate improved UE strength to perform ADLS, IADLs, and recreational activities. Three Impairment ROM deficits Short Term Goal (STG) Pt's left shoulder ER AROM to improve to 60 degrees or better to show improving ROM to perform ADLs and IADLs with increased ease. STG Duration 4 weeks Retirement Goal (LTG) Pt's left shoulder flexion AROM to improve to 65 degrees or better to show improved ROM to perform ADLs and IADLs with increased ease. LTG Duration 6 weeks Two Impairment ROM deficits Short Term Goal (STG) Pt's left shoulder ABD AROM to improve to 160 degrees or better to show improving ROM to perform ADLs and IADLs with increased ease. STG Duration 4 weeks Retirement Goal (LTG) Pt's left shoulder flexion AROM to improve to 170 degrees or better to show improved ROM to perform ADLs and IADLs with increased ease. LTG Duration 6 weeks One Impairment ROM deficits Short Term Goal (STG) Pt's bilateral shoulder flexion AROM to improve to 150 degrees or better to show improving ROM to perform ADLs and IADLs with increased ease. STG Duration 4 weeks Retirement Goal (LTG) Pt's bilateral shoulder flexion AROM to improve to 165 degrees or better to show improved ROM to perform ADLs and IADLs with increased ease. LTG Duration 6 weeks Assessment Summary Assessment The pt was progressed by adding shoulder stability and muscular endurance exercises. He reported good tolerance, and required only minor verbal cues to perform with good form, specifically to improve posture. The pt continues to benefit from skilled PT at this time to improve his deficits. Physical Therapy Plan Frequency and Duration Frequency of Treatment 2x/Week Duration of treatment (weeks) 6 Plan of Care Start Date 03/24/23 Plan of Care End Date 05/05/23 Therapeutic Interventions Therapeutic Interventions Manual Therapy,Neuromuscular Re-education,Self-Care/Home Management,Soft Tissue Mobilization,Taping, Therapeutic Activities, Therapeutic Exercises Modalities Cold Pack/Ice Massage,Electric Stimulation Next Visit Focus/Plan Next Note Type Progress Note Next Visit Plan Complete progress note, continue as per POC.
--- NOTE | 2023-04-27 15:08 | PT.OPPN ---
Current Diagnoses Other shoulder lesions, left shoulder (04/27/23) Physical Therapy Progress Note PT-OP-A Visit Information Start: 03/24/23 13:44 Freq: Status: Active Protocol: Document 04/27/23 13:50 AB (Rec: 04/27/23 15:08 AB [id number]) Out-Patient Physical Therapy Visit Information Visit Information Visit Type Progress Note Visit Start Time 13:45 Visit Stop Time 14:30 Total Visit Minutes 45 Visit Number 10 Number of CLOTH DESIZING RANGE TENDER Visits 0 Evaluation Information Evaluation Date 03/24/23 Precautions Precautions DM Type 2, HTN, hyperlipidemia PT-OP-B Current Condition Start: 03/24/23 13:44 Freq: Status: Active Protocol: Document 04/27/23 13:50 AB (Rec: 04/27/23 15:08 AB [id number]) Current Condition History of Current Condition Onset Date Chronic Current Complaints Sharp pain: 3-4/10 at worst, 0 /10 at best History of Current Condition Pt reports he suffered a left shoulder dislocation, and has started to bother him again over the last year. He has pain when he rolls onto his left shoulder or when he has to drive more than 45 min, mopping, carrying heavy items (i.e. gorceries). Pt has tried ice, Tylenol with some relief short term. Prior Treatments and Tests None Future Testing and Treatments Planned No other referrals at this time. Treatment Goals Patient/Caregiver Goals To improve his symptoms and avoid further aggravation. PT-OP-C Subjective Start: 03/24/23 13:44 Freq: Status: Active Protocol: Document 04/27/23 13:50 AB (Rec: 04/27/23 15:08 AB [id number]) OP-PT Subjective Patient Comments Patient Comments The pt reports feeling stronger and not having as much pain, but he continues to have pain at night especially when he rolls over on to his shoulder. Patient Reported Progress Improving Patient Questionnaires Quick Dash- Upper Extremity Quick Dash UE Score 11.36% impairment Quick Dash UE Impairment 1 to 19% Impaired (Score 1-19) PT-OP-J Posture/Palpation/Skin Start: 03/24/23 13:44 Freq: Status: Active Protocol: Document 04/27/23 13:50 AB (Rec: 04/27/23 15:08 AB [id number]) Posture Evaluation Position Sitting Evaluation View Lateral T-Spine Posture Increased Kyphosis Palpation Assessment Location One Palpation Location Left shoulder Palpation Findings None/Normal Palpation Details Pt denies TTP PT-OP-K Range of Motion Start: 03/24/23 13:44 Freq: Status: Active Protocol: Document 04/27/23 13:50 AB (Rec: 04/27/23 15:08 AB [id number]) Shoulder Goniometric Range of Motion Shoulder Measured in Degrees Right Active Shoulder ROM WFL Yes Testing Position Sitting Flexion 142 Abduction 162 External Rotation at 0 degrees Abduction 71 Internal Rotation Behind Back (text) T12 Comments Functional ER: T3 Pt reports feeling of muscle stretch with all motions Left Active Shoulder ROM WFL Yes Testing Position Sitting Flexion 155 Abduction 170 External Rotation at 0 degrees Abduction 68 Internal Rotation Behind Back (text) T10 Comments Functional ER: T3 Pt denies pain with all motions PT-OP-L Special Tests Start: 03/24/23 13:44 Freq: Status: Active Protocol: Document 04/27/23 13:50 AB (Rec: 04/27/23 15:08 AB [id number]) Special Tests Shoulder Special Tests Lift-Off Rotator Cuff Test Results negative Empty Can Test Results negative [place] Impingement Test Results negative PT-OP-M Strength Start: 03/24/23 13:44 Freq: Status: Active Protocol: Document 04/27/23 13:50 AB (Rec: 04/27/23 15:08 AB [id number]) Shoulder Strength Shoulder Manual Muscle Testing Right Flexion 5 Normal Extension 5 Normal Abduction (C5) 5 Normal External Rotation 5 Normal Internal Rotation 5 Normal Left Flexion 5 Normal Extension 5 Normal Abduction (C5) 5 Normal External Rotation 5 Normal Internal Rotation 5 Normal Comments Pain with ABD MMT testing Elbow/Forearm Strength Elbow and Forearm Manual Muscle Testing Right Flexion (C6) 5 Normal Extension (C7) 5 Normal Left Flexion (C6) 5 Normal Extension (C7) 5 Normal PT-OP-T Assessment and Plan Start: 03/24/23 13:44 Freq: Status: Active Protocol: Document 04/27/23 13:50 AB (Rec: 04/27/23 15:08 AB [id number]) Physical Therapy Assessment Rehab Potential Rehabilitation Potential Excellent Evaluation Complexity Number of Personal Factors/Comorbidities 1-2 Number of Body Systems Impaired 1-2 Clinical Presentation at Evaluation Stable Impairments Impairments Pain,ROM,Strength Goals Five Impairment elevated QUICKDASH Short Term Goal (STG) Pt's QuickDASH score to improve to 19% impairment or better to show improving symptoms and QOL. STG Duration 4 weeks Web Developer Programmer Goal (LTG) Pt's QuickDASH score to improve to 12% impairment or better to show resolving symptoms and improved QOL. LTG Duration 6 Four Impairment LUE weakness Short Term Goal (STG) Pt's LUE MMT scores to improve to 5/5 to demonstrate improving UE strength to perform functional activities. STG Duration 4 weeks Web Developer Programmer Goal (LTG) Pt's LUE MMT scores to improve to 5/5 without symptoms to demonstrate improved UE strength to perform ADLS, IADLs, and recreational activities. LTG Duration 6 Three Impairment ROM deficits Short Term Goal (STG) Pt's left shoulder ER AROM to improve to 60 degress or better to show improving ROM to perform ADLs and IADLs with increased ease. STG Duration 4 weeks Senior Living Goal (LTG) Pt's left shoulder flexion AROM to improve to 65 degress or better to show improved ROM to perform ADLs and IADLs with increased ease. LTG Duration 6 weeks Two Impairment ROM deficits Short Term Goal (STG) Pt's left shoulder ABD AROM to improve to 160 degress or better to show improving ROM to perform ADLs and IADLs with increased ease. STG Duration 4 weeks Senior Living Goal (LTG) Pt's left shoulder flexion AROM to improve to 170 degress or better to show improved ROM to perform ADLs and IADLs with increased ease. LTG Duration 6 weeks One Impairment ROM deficits Short Term Goal (STG) Pt's bilateral shoulder flexion AROM to improve to 150 degress or better to show improving ROM to perform ADLs and IADLs with increased ease. STG Duration 4 weeks Web Developer Programmer Goal (LTG) Pt's bilateral shoulder flexion AROM to improve to 165 degress or better to show improved ROM to perform ADLs and IADLs with increased ease. LTG Duration 6 weeks Progress Towards Goals Progress Towards Goals Progressing Toward Goals Assessment Summary Assessment Shabbir Trent has completed 9 visits of skilled PT to address his left shoulder pain and mobility deficits. Currently, he demonstrates significant improvement in his ROM, strength and pain symptoms, as detailed above. His pain is minimally reproduced during testing performed. His ROM has improved to equal and in some cases surpass that of his RUE. He demonstrates improved biomechanics when performing shoulder flexion and ABD. However he continues with pain at night in his right shoulder and some times when reaching overhead repeatedly. Based on his improvement but remaining pain symptoms, the pt would benefit from completing his remaining visits as per his POC, then discharging to independent [facility] . Physical Therapy Plan Frequency and Duration Frequency of Treatment 2x/Week Duration of treatment (weeks) 6 Plan of Care Start Date 03/24/23 Plan of Care End Date 05/05/23 Therapeutic Interventions Therapeutic Interventions Manual Therapy,Neuromuscular Re-education,Self-Care/Home Management,Soft Tissue Mobilization,Taping, Therapeutic Activities, Therapeutic Exercises Modalities Cold Pack/Ice Massage,Electric Stimulation Next Visit Focus/Plan Next Note Type Treatment Note Next Visit Plan Continue progressing as tolerated.
--- NOTE | 2023-05-02 15:47 | PT.OTN ---
Current Diagnoses Other shoulder lesions, left shoulder (05/02/23) Physical Therapy Treatment Note PT-OP-A Visit Information Start: 03/24/23 13:44 Freq: Status: Active Protocol: Document 05/02/23 13:52 AB (Rec: 05/02/23 15:40 AB [id number]) Out-Patient Physical Therapy Visit Information Visit Information Visit Type Discharge Summary Visit Start Time 13:49 Visit Stop Time 14:30 Total Visit Minutes 41 Visit Number 11 Number of MANAGER RESPIRATORY CARE Visits 0 PT-OP-B Current Condition Start: 03/24/23 13:44 Freq: Status: Active Protocol: Document 04/27/23 13:50 AB (Rec: 04/27/23 15:08 AB [id number]) Current Condition History of Current Condition Onset Date Chronic Current Complaints Sharp pain: 3-4/10 at worst, 0 /10 at best History of Current Condition Pt reports he sufferred a left shoulder dislocation, and has started to bother him again over the last year. He has pain when he rolls onto his left shoulder or when he has to drive more than 45 min, mopping, carrying heavy items (i.e. gorceries). Pt has tried ice, Tylenol with some relief short term. Prior Treatments and Tests None Future Testing and Treatments Planned No other referrals at this time. Treatment Goals Patient/Caregiver Goals To improve his symptoms and avoid further aggravation. PT-OP-C Subjective Start: 03/24/23 13:44 Freq: Status: Active Protocol: Document 05/02/23 13:52 AB (Rec: 05/02/23 15:40 AB [id number]) OP-PT Subjective Patient Comments Patient Comments The pt reports that last night he was able to sleep last night without pain. Patient Reported Progress Improving PT-OP-J Posture/Palpation/Skin Start: 03/24/23 13:44 Freq: Status: Active Protocol: Document 04/27/23 13:50 AB (Rec: 04/27/23 15:08 AB [id number]) Posture Evaluation Position Sitting Evaluation View Lateral T-Spine Posture Increased Kyphosis Palpation Assessment Location One Palpation Location Left shoulder Palpation Findings None/Normal Palpation Details Pt denies TTP PT-OP-K Range of Motion Start: 03/24/23 13:44 Freq: Status: Active Protocol: Document 04/27/23 13:50 AB (Rec: 04/27/23 15:08 AB [id number]) Shoulder Goniometric Range of Motion Shoulder Right Active Shoulder ROM WFL Yes Testing Position Sitting Flexion 142 Abduction 162 External Rotation at 0 degrees Abduction 71 Internal Rotation Behind Back (text) T12 Comments Functional ER: T3 Pt reports feeling of muscle stretch with all motions Left Active Shoulder ROM WFL Yes Testing Position Sitting Flexion 155 Abduction 170 External Rotation at 0 degrees Abduction 68 Internal Rotation Behind Back (text) T10 Comments Functional ER: T3 Pt denies pain with all motions PT-OP-L Special Tests Start: 03/24/23 13:44 Freq: Status: Active Protocol: Document 04/27/23 13:50 AB (Rec: 04/27/23 15:08 AB [id number]) Special Tests Shoulder Special Tests Lift-Off Rotator Cuff Test Results negative Empty Can Test Results negative [place] Impingement Test Results negative PT-OP-M Strength Start: 03/24/23 13:44 Freq: Status: Active Protocol: Document 04/27/23 13:50 AB (Rec: 04/27/23 15:08 AB [id number]) Shoulder Strength Shoulder Manual Muscle Testing Right Flexion 5 Normal Extension 5 Normal Abduction (C5) 5 Normal External Rotation 5 Normal Internal Rotation 5 Normal Left Flexion 5 Normal Extension 5 Normal Abduction (C5) 5 Normal External Rotation 5 Normal Internal Rotation 5 Normal Comments Pain with ABD MMT testing Elbow/Forearm Strength Elbow and Forearm Manual Muscle Testing Right Flexion (C6) 5 Normal Extension (C7) 5 Normal Left Flexion (C6) 5 Normal Extension (C7) 5 Normal PT-OP-Q Treatments Start: 03/24/23 13:44 Freq: Status: Active Protocol: Document 05/02/23 13:52 AB (Rec: 05/02/23 15:40 AB [id number]) Cardio Equipment Upper Body Ergometer (UBE) Duration (Minutes) 5 Other 2.5 fwd, 2.5 bwd Therapeutic Exercises Prone Exercises 1 Prone Exercise Name Ys, Ts, Ws Side bilateral Resistance no weight Reps/Minutes 2x8 ea Standing Exercises Cheerleaders Side bilateral Resistance level 2 TB Reps/Minutes 2x5ea Body blade Standing Exercise Name ER/IR, fwd/bwd, up/down Side left Equipment Used yellow body blade Reps/Minutes 2x30 sec Front/lateral raises Standing Exercise Name front and lateral raises Side bilateral Resistance 3# Equipment Used DBs Reps/Minutes 2x10 ea 5 Standing Exercise Name TB archers Side bilateral Equipment Used blueberry TB Reps/Minutes 2x15 ea Comments unilateral row + thoracic rotation 4 Standing Exercise Name Shldr ER and IR at 90D shoulder flex, 90D Side left Equipment Used level 2 teal TB Reps/Minutes 2x15 ea Comments Elbow is resting on wall; bottom of band is being stepped on by pt's foot Other Exercises Shoulder taps Other Exercise Name Shoulder taps from high plinth Side bilateral Reps/Minutes 2x10ea 90/90 DB carry Side left Resistance 5# Equipment Used DB Reps/Minutes x 2 laps Comments shldr in 90D of flex, elbow in 90D of flex PT-OP-T Assessment and Plan Start: 03/24/23 13:44 Freq: Status: Active Protocol: Document 05/02/23 13:52 AB (Rec: 05/02/23 15:40 AB [id number]) Physical Therapy Assessment Goals Five Impairment elevated QUICKDASH Short Term Goal (STG) Pt's QuickDASH score to improve to 19% impairment or better to show improving symptoms and QOL. STG Duration 4 weeks Custodial Goal (LTG) Pt's QuickDASH score to improve to 12% impairment or better to show resolving symptoms and improved QOL. LTG Duration 6 Four Impairment LUE weakness Short Term Goal (STG) Pt's LUE MMT scores to improve to 5/5 to demonstrate improving UE strength to perform functional activities. STG Duration 4 weeks Custodial Goal (LTG) Pt's LUE MMT scores to improve to 5/5 without symptoms to demonstrate improved UE strength to perform ADLS, IADLs, and recreational activities. LTG Duration 6 Three Impairment ROM deficits Short Term Goal (STG) Pt's left shoulder ER AROM to improve to 60 degrees or better to show improving ROM to perform ADLs and IADLs with increased ease. STG Duration 4 weeks Custodial Goal (LTG) Pt's left shoulder flexion AROM to improve to 65 degrees or better to show improved ROM to perform ADLs and IADLs with increased ease. LTG Duration 6 weeks Two Impairment ROM deficits Short Term Goal (STG) Pt's left shoulder ABD AROM to improve to 160 degrees or better to show improving ROM to perform ADLs and IADLs with increased ease. STG Duration 4 weeks Custodial Goal (LTG) Pt's left shoulder flexion AROM to improve to 170 degrees or better to show improved ROM to perform ADLs and IADLs with increased ease. LTG Duration 6 weeks One Impairment ROM deficits Short Term Goal (STG) Pt's bilateral shoulder flexion AROM to improve to 150 degrees or better to show improving ROM to perform ADLs and IADLs with increased ease. STG Duration 4 weeks Civil Engineering Assistant Goal (LTG) Pt's bilateral shoulder flexion AROM to improve to 165 degrees or better to show improved ROM to perform ADLs and IADLs with increased ease. LTG Duration 6 weeks Assessment Summary Assessment The focus of today's session was on establishing the pt's discharge HEP. The exercises performed today, with the exception of the body blade were all added to his HEP. The pt demonstrates good form and requires minimal cues to perform with good form. The plan is to discharge the pt next visit, with any modifications to be made to HEP as needed. Physical Therapy Plan Frequency and Duration Frequency of Treatment 2x/Week Duration of treatment (weeks) 6 Plan of Care Start Date 03/24/23 Plan of Care End Date 05/05/23 Next Visit Focus/Plan Next Note Type Discharge Summary Next Visit Plan D/c from PT
--- NOTE | 2023-05-04 15:22 | PT.OPDS ---
Current Diagnoses Other shoulder lesions, left shoulder (05/04/23) Visit Care Team Role Provider Type Luis Mena MD Attending Provider Physician Family Provider Primary Care Provider Referring Provider Specialty: Internal Medicine Address: [address] [place] [address], [facility] Email: [email or web address] Visit Number Visit Number 12 Discharge Summary PT-OP-B Current Condition Start: 03/24/23 13:44 Freq: Status: Active Protocol: Document 05/04/23 13:51 AB (Rec: 05/04/23 15:22 AB [id number]) Current Condition History of Current Condition Onset Date Chronic Current Complaints Sharp pain: 3-4/10 at worst, 0 /10 at best History of Current Condition Pt reports he sufferred a left shoulder dislocation, and has started to bother him again over the last year. He has pain when he rolls onto his left shoulder or when he has to drive more than 45 min, mopping, carrying heavy items (i.e. gorceries). Pt has tried ice, Tylenol with some relief short term. Prior Treatments and Tests None Future Testing and Treatments Planned No other referrals at this time. Treatment Goals Patient/Caregiver Goals To improve his symptoms and avoid further aggravation. PT-OP-C Subjective Start: 03/24/23 13:44 Freq: Status: Active Protocol: Document 05/04/23 13:51 AB (Rec: 05/04/23 15:22 AB [id number]) OP-PT Subjective Patient Comments Patient Comments The pt reports he no longer wakes up in the middle of the night with pain. He also reports minimal pain, and is able to do most daily acitivities without pain. When he does have pain, he reports it is a 2/10 at most. Patient Reported Progress Improving Patient Questionnaires Quick Dash- Upper Extremity Quick Dash UE Score 9.09% Quick Dash UE Impairment 1 to 19% Impaired (Score 1-19) OP-PT Pain Assessment Location Left Shoulder Intensity 2 Scale Used Numeric (0 - 10) Description Sharp Frequency Rarely Other Pain Aggravating Factors lifitng groceries Pain Alleviating Factors Cold,Medication,Inactivity PT-OP-J Posture/Palpation/Skin Start: 03/24/23 13:44 Freq: Status: Active Protocol: Document 05/04/23 13:51 AB (Rec: 05/04/23 15:22 AB [id number]) Posture Evaluation Position Sitting Evaluation View Lateral T-Spine Posture Increased Kyphosis Palpation Assessment Location One Palpation Location Left shoulder Palpation Findings None/Normal Palpation Details Pt denies TTP PT-OP-K Range of Motion Start: 03/24/23 13:44 Freq: Status: Active Protocol: Document 05/04/23 13:51 AB (Rec: 05/04/23 15:22 AB [id number]) Shoulder Goniometric Range of Motion Shoulder Right Active Flexion 154 Abduction 170 External Rotation at 0 degrees Abduction 71 Internal Rotation Behind Back (text) T12 Comments Functional ER: T3 Left Active Shoulder ROM WFL Yes Testing Position Sitting Flexion 160 Abduction 170 External Rotation at 0 degrees Abduction 70 Internal Rotation Behind Back (text) T10 Comments Functional ER: T3 PT-OP-L Special Tests Start: 03/24/23 13:44 Freq: Status: Active Protocol: Document 05/04/23 15:22 AB (Rec: 05/04/23 15:22 AB [id number]) Special Tests Shoulder Special Tests Lift-Off Rotator Cuff Test Results negative Empty Can Test Results negative [place] Impingement Test Results negative PT-OP-M Strength Start: 03/24/23 13:44 Freq: Status: Active Protocol: Document 05/04/23 13:51 AB (Rec: 05/04/23 15:22 AB [id number]) Shoulder Strength Shoulder Manual Muscle Testing Right Flexion 5 Normal Extension 5 Normal Abduction (C5) 5 Normal External Rotation 5 Normal Internal Rotation 5 Normal Left Flexion 5 Normal Extension 5 Normal Abduction (C5) 5 Normal External Rotation 5 Normal Internal Rotation 5 Normal Comments Pain with ABD MMT testing Elbow/Forearm Strength Elbow and Forearm Manual Muscle Testing Right Flexion (C6) 5 Normal Extension (C7) 5 Normal Left Flexion (C6) 5 Normal Extension (C7) 5 Normal PT-OP-T Assessment and Plan Start: 03/24/23 13:44 Freq: Status: Active Protocol: Document 05/04/23 13:51 AB (Rec: 05/04/23 15:22 AB [id number]) Physical Therapy Assessment Rehab Potential Rehabilitation Potential Excellent Evaluation Complexity Number of Personal Factors/Comorbidities 1-2 Number of Body Systems Impaired 1-2 Clinical Presentation at Evaluation Stable Goals Five Impairment elevated QUICKDASH Short Term Goal (STG) Pt's QuickDASH score to improve to 19% impairment or better to show improving symptoms and QOL. STG Duration 4 weeks Nursing Home Goal (LTG) Pt's QuickDASH score to improve to 12% impairment or better to show resolving symptoms and improved QOL. LTG Duration 6 Four Impairment LUE weakness Short Term Goal (STG) Pt's LUE MMT scores to improve to 5/5 to demonstrate improving UE strength to perform functional activities. STG Duration 4 weeks Nursing Home Goal (LTG) Pt's LUE MMT scores to improve to 5/5 without symptoms to demonstrate improved UE strength to perform ADLS, IADLs, and recreational activities. LTG Duration 6 Three Impairment ROM deficits Short Term Goal (STG) Pt's left shoulder ER AROM to improve to 60 degrees or better to show improving ROM to perform ADLs and IADLs with increased ease. STG Duration 4 weeks Forest Ecologist Goal (LTG) Pt's left shoulder flexion AROM to improve to 65 degrees or better to show improved ROM to perform ADLs and IADLs with increased ease. LTG Duration 6 weeks Two Impairment ROM deficits Short Term Goal (STG) Pt's left shoulder ABD AROM to improve to 160 degrees or better to show improving ROM to perform ADLs and IADLs with increased ease. STG Duration 4 weeks Nursing Home Goal (LTG) Pt's left shoulder flexion AROM to improve to 170 degrees or better to show improved ROM to perform ADLs and IADLs with increased ease. LTG Duration 6 weeks One Impairment ROM deficits Short Term Goal (STG) Pt's bilateral shoulder flexion AROM to improve to 150 degress or better to show improving ROM to perform ADLs and IADLs with increased ease. STG Duration 4 weeks Forest Ecologist Goal (LTG) Pt's bilateral shoulder flexion AROM to improve to 165 degrees or better to show improved ROM to perform ADLs and IADLs with increased ease. LTG Duration 6 weeks Progress Towards Goals Progress Towards Goals Goals Met Assessment Summary Assessment Shabbir Trent has completed 12 visits of skilled PT to improve his left shoulder pain . The pt shows significantly improved ROM, strength and neuromuscular control. The pt reports minimal to no pain with ADLs and IADLs, as well as independence with HEP. Based on his improvement and achievement of goals, PT recommends discharging at this time. The pt was educated on reasons to return to PT or to MD, as well as to continue with HEP for maintenance. Physical Therapy Plan Frequency and Duration Frequency of Treatment 2x/Week Duration of treatment (weeks) 6 Plan of Care Start Date 03/24/23 Plan of Care End Date 05/05/23 Therapeutic Interventions Therapeutic Interventions Manual Therapy,Neuromuscular Re-education,Self-Care/Home Management,Soft Tissue Mobilization,Taping, Therapeutic Activities, Therapeutic Exercises Modalities Cold Pack/Ice Massage,Electric Stimulation Discharge Physical Therapy Discharge Reasons Goals Met
== END 2023-05-05 12:00 ==
LOC: PHYS 13:45
PROVIDERS: Family Provider Internal Medicine; PCP Internal Medicine; Referring Provider Internal Medicine; Visit Provider Internal Medicine
DX: M75.82 Other shoulder lesions, left shoulder (principal)
CPT/HCPCS: 97110; 97161

== ENCOUNTER → 2023-06-30 16:15 | Outpatient (CLI) | payer MEDICARE, SELFPAY ==
[2021-11-16 13:32] VITALS: BMI 33.0
[2023-06-30 18:06] LABS: BUN Creatinine Ratio 25.5 (6-22); Blood Urea Nitrogen 24 mg/dL (9-20); Calcium 10.1 mg/dL (8.4-10.2); Carbon Dioxide 27 mmol/L (22-32); Chloride 103 mmol/L (98-107); Estimated Glomerular Filt Rate > 60 mL/min (>60); Glucose 100 mg/dL (80-110); HEMOLYSIS 42 (0-50); Potassium 3.4 mmol/L (3.4-5.1); Sodium 137 mmol/L (137-145)
[2023-06-30 18:10] LABS: Hemoglobin A1C% w Est Avg Glu 5.8 % (4.0-6.0)
== END ==
PROVIDERS: Family Provider Internal Medicine; PCP Internal Medicine; Referring Provider Internal Medicine; Visit Provider Internal Medicine
DX: I10 Essential (primary) hypertension (principal); E11.69 Type 2 diabetes mellitus with other specified complication; E78.5 Hyperlipidemia, unspecified; E11.9 Type 2 diabetes mellitus without complications
CPT/HCPCS: 36415; 80048; 83036

== ENCOUNTER 2023-07-10 10:23 | Emergency (ER) | payer MEDICARE, SELFPAY ==
[2021-11-16 13:32] VITALS: BMI 33.0
[2023-07-10 10:29] VITALS: BP 163/87; PULSE 63; RESP 12; TEMP 36.3; O2SAT 96; BMI 31.1
[2023-07-10 10:36] VITALS: BP 170/85; PULSE 63; O2SAT 94
[2023-07-10 11:00] VITALS: PULSE 66; O2SAT 91
[2023-07-10 11:01] VITALS: BP 154/84; PULSE 64; O2SAT 91
[2023-07-10] MEDS: LIDOCAINE 2% (GLYDO) 6 ML GEL TOP (11:24)
--- NOTE | 2023-07-10 11:44 | ED.ABDPAIN ---
HPI - Abdominal Pain <Betsy Crowder PA-C - Last Filed: 07/10/23 19:10> General Chief Complaint: Abdominal Pain Stated Complaint: impacted bowel Time Seen by Provider: 07/10/23 11:03 Source: patient Mode of arrival: Family Vehicle History of Present Illness HPI narrative: 73-year-old male history of hypertension, diabetes, high cholesterol, presents for evaluation of worsening constipation. He has not had a proper bowel movement for about a week. He has been eating and drinking all that time without any problems and denies any significant or prolonged abdominal pain. He has tried taking Colace and has attempted to disimpact himself without success. He is had no nausea or vomiting. He denies fever cough chest pain or shortness of breath. He is urinating normally. Related Data Home Medications Medication Instructions Recorded Confirmed aspirin 81 mg tablet,delayed 81 mg PO DAILY 09/20/19 06/30/23 release (Adult Aspirin Regimen) multivitamin 1 tab PO DAILY 09/20/19 06/30/23 omega-3 fatty acids [Fish Oil 1 cap PO DAILY 09/20/19 06/30/23 Concentrate] cetirizine 10 mg tablet 10 mg PO DAILY 03/12/20 06/30/23 magnesium 200 mg tablet 400 mg PO DAILY 03/12/20 06/30/23 cholecalciferol (vitamin D3) 50 6,000 unit PO DAILY 02/04/22 06/30/23 mcg (2,000 unit) tablet coenzyme Q10 [Co Q-10] 400 mg PO DAILY 03/21/23 06/30/23 vitamin B complex 1 cap PO DAILY 03/21/23 06/30/23 zinc acetate 50 mg PO DAILY 03/21/23 06/30/23 Previous Rx's Medication Instructions Recorded allopurinol 300 mg tablet 300 mg PO DAILY #90 tabs 09/20/22 hydrochlorothiazide 25 mg tablet 25 mg PO DAILY #90 tabs 09/20/22 lisinopril 40 mg tablet 40 mg PO DAILY #90 tabs 09/20/22 rosuvastatin 40 mg tablet 40 mg PO DAILY Cholesterol #90 tabs 09/20/22 terazosin 2 mg capsule 2 mg PO DAILY #90 caps 09/20/22 metoprolol tartrate 50 mg tablet 50 mg PO BID #180 tabs 05/16/23 amlodipine 5 mg tablet 5 mg PO DAILY #90 tabs 06/30/23 Allergies Allergy/AdvReac Type Severity Reaction Status Date / Time No Known Drug Allergies Allergy Verified 07/10/23 10:32 Review of Systems <Betsy Crowder PA-C - Last Filed: 07/10/23 19:10> Review of Systems ROS Unobtainable: All systems reviewed & are unremarkable except as noted in HPI and below Patient History <Betsy Crowder PA-C - Last Filed: 07/10/23 19:10> Medical History History of colonic polyps Overweight BPH w urinary obs/LUTS Gout Mixed hyperlipidemia Essential hypertension DM type 2 with diabetic dyslipidemia Incomplete emptying of bladder Chronic prostatitis Nodular prostate Elevated PSA Hx of hyperlipidemia History of BPH Hypertension Family History Father Coronary artery disease Social History household members: spouse Smoking Status: Former smoker alcohol intake: current Smoking Status: Former smoker alcohol intake frequency: holidays/special occasions only Substance Use Type: does not use Exam <Betsy Crowder PA-C - Last Filed: 07/10/23 19:10> Narrative Exam Narrative: GENERAL: 73 year old patient appears stated age. Well-developed patient, in no distress. HEAD: Atraumatic. Normocephalic. EYES: Pupils equal round and reactive. Extraocular motions intact. No scleral icterus. No injection or drainage. ENT: Nose without bleeding, purulent drainage. NECK: Trachea midline. Non tender, no LAD CARDIOVASCULAR: Regular rate and rhythm without murmurs, gallops, or rubs. RESPIRATORY: Clear to auscultation. Breath sounds equal bilaterally. No wheezes, rales, or rhonchi. GASTROINTESTINAL: Abdomen soft, non-tender, nondistended. Normoactive bowel sounds. EXTREMITIES: No edema or joint tenderness. NEURO: AOx3. : Small external hemorrhoids, copious firm stool present in the rectum. Initial Vital Signs Initial Vital Signs: Vital Signs Temperature 97.4 F L 07/10/23 10:29 Pulse Rate 63 07/10/23 10:29 Respiratory Rate 12 07/10/23 10:29 Blood Pressure 163/87 H 07/10/23 10:29 Pulse Oximetry 96 07/10/23 10:29 Oxygen Delivery Method Room Air 07/10/23 10:29 <Kelly Chowdhury MD - Last Filed: 07/10/23 19:18> Initial Vital Signs Initial Vital Signs: Vital Signs Temperature 97.4 F L 07/10/23 10:29 Pulse Rate 63 07/10/23 10:29 Respiratory Rate 12 07/10/23 10:29 Blood Pressure 163/87 H 07/10/23 10:29 Pulse Oximetry 96 07/10/23 10:29 Oxygen Delivery Method Room Air 07/10/23 10:29 Procedures <Betsy Crowder PA-C - Last Filed: 07/10/23 19:10> Rectal Disimpaction Indication: fecal impaction Procedural Sedation: No Sedation/Analgesia: other (Toradol) Technique: manual disimpaction with gloved finger [facility] [place] Name of Procedure: Digital manual disimpaction. Location: Rectum Additional Comments: Patient could not tolerate the procedure for long and we switched to stool softener and enema which was successful. Course <Betsy Crowder PA-C - Last Filed: 07/10/23 19:10> Orders Ordered: Discontinued Medications Ketorolac Tromethamine (Ketorolac 30 Mg/Ml Vial) 30 mg IM NOW ONE Stop: 07/10/23 11:43 Last Admin: 07/10/23 11:53 Dose: 30 mg Documented By: LIEN Lidocaine HCl (Lidocaine 2% (Glydo) 6 Ml Gel) 6 ml TOP NOW ONE Stop: 07/10/23 11:22 Last Admin: 07/10/23 11:24 Dose: 6 ml Documented By: LIEN Magnesium Hydroxide (Magnesium Hydroxide 30 Ml Udc) 30 ml PO NOW ONE Stop: 07/10/23 12:22 Last Admin: 07/10/23 12:29 Dose: 30 ml Documented By: LIEN Mineral Oil (Mineral Oil 1 Each Enema) 1 each AR NOW ONE Stop: 07/10/23 12:21 Last Admin: 07/10/23 12:29 Dose: 1 each Documented By: LIEN Polyethylene Glycol (Polyethylene Glycol 3350 17 Gm Powd.Pack) 17 gm PO NOW ONE Stop: 07/10/23 12:23 Last Admin: 07/10/23 12:30 Dose: 17 gm Documented By: RB Vital Signs Vital signs: Vital Signs - 8 hr 07/10/23 14:20 Temperature 98.2 F Pulse Rate 70 Respiratory Rate 16 Blood Pressure 153/64 H Pulse Oximetry 98 Oxygen Delivery Method Room Air <Kelly Chowdhury MD - Last Filed: 07/10/23 19:18> Orders Ordered: Discontinued Medications Ketorolac Tromethamine (Ketorolac 30 Mg/Ml Vial) 30 mg IM NOW ONE Stop: 07/10/23 11:43 Last Admin: 07/10/23 11:53 Dose: 30 mg Documented By: RB Lidocaine HCl (Lidocaine 2% (Glydo) 6 Ml Gel) 6 ml TOP NOW ONE Stop: 07/10/23 11:22 Last Admin: 07/10/23 11:24 Dose: 6 ml Documented By: RB Magnesium Hydroxide (Magnesium Hydroxide 30 Ml Udc) 30 ml PO NOW ONE Stop: 07/10/23 12:22 Last Admin: 07/10/23 12:29 Dose: 30 ml Documented By: LIEN Mineral Oil (Mineral Oil 1 Each Enema) 1 each AR NOW ONE Stop: 07/10/23 12:21 Last Admin: 07/10/23 12:29 Dose: 1 each Documented By: LIEN Polyethylene Glycol (Polyethylene Glycol 3350 17 Gm Powd.Pack) 17 gm PO NOW ONE Stop: 07/10/23 12:23 Last Admin: 07/10/23 12:30 Dose: 17 gm Documented By: RB Vital Signs Vital signs: Vital Signs - 8 hr 07/10/23 14:20 Temperature 98.2 F Pulse Rate 70 Respiratory Rate 16 Blood Pressure 153/64 H Pulse Oximetry 98 Oxygen Delivery Method Room Air MDM - Abdominal Pain <Betsy Crowder PA-C - Last Filed: 07/10/23 19:10> Differential Diagnosis Differential diagnosis: Likely abdominal pain, constipation, diverticulitis and small bowel obstruction MDM Narrative Medical decision making narrative: Given the amount of hard stool in the rectum I attempted 3 times to disimpact him but he was very uncomfortable with the procedure. He was given MiraLax and an enema which led to his eventual complete evacuation of his stool. The patient was discussed with who agrees with the plan. Discharge Plan Departure Patient Disposition: Home Clinical Impression: Fecal impaction Instructions: DI for Constipation Activity Restrictions/Additional Instructions: I am glad you got some relief today. To help prevent this from happening again, you could add Metamucil or other fiber laxative to your diet daily, increase your water intake and increase intake of fruits and vegetables, cut down on meat. If you find yourself not having passed stool for 2-3 days try [id number] MiraLax. Please return for any new onset abdominal pain fever nausea vomiting. Prescriptions: No Action omega-3 fatty acids 1 cap PO DAILY aspirin [Adult Aspirin Regimen] 81 mg tablet,delayed release (DR/EC) 81 mg PO DAILY multivitamin Tablet 1 tab PO DAILY cholecalciferol (vitamin D3) 50 mcg (2,000 unit) tablet 6,000 unit PO DAILY metoprolol tartrate 50 mg tablet 50 mg PO BID Qty: 180 3RF allopurinol 300 mg tablet 300 mg PO DAILY Qty: 90 3RF hydrochlorothiazide 25 mg tablet 25 mg PO DAILY Qty: 90 3RF lisinopril 40 mg tablet 40 mg PO DAILY Qty: 90 3RF rosuvastatin 40 mg tablet 40 mg PO DAILY Qty: 90 3RF terazosin 2 mg capsule 2 mg PO DAILY Qty: 90 3RF vitamin B complex 1 cap PO DAILY coenzyme Q10 [Co Q-10] 400 mg PO DAILY zinc acetate 50 mg PO DAILY amlodipine 5 mg tablet 5 mg PO DAILY Qty: 90 3RF cetirizine 10 mg Tablet 10 mg PO DAILY magnesium 200 mg Tablet 400 mg PO DAILY Referrals: Luis Mena MD [Primary Care Provider] - Stand Alone Forms: Patient Portal/API ED Sign-out <Kelly Chowdhury MD - Last Filed: 07/10/23 19:18> Cosign ED Attending Cosleonidasature Attestation: I was immediately available in the department for consultation throughout this patient's visit. Kelly Chowdhury MD
[2023-07-10] MEDS: KETOROLAC 30 MG/ML VIAL IM (11:53)
[2023-07-10] MEDS: MINERAL OIL 1 EACH ENEMA PR (12:29)
[2023-07-10] MEDS: MAGNESIUM HYDROXIDE 30 ML UDC PO (12:29)
[2023-07-10] MEDS: polyethylene glycoL 3350 17 GM POWD.PACK PO (12:30)
[2023-07-10 14:20] VITALS: BP 153/64; PULSE 70; RESP 16; TEMP 36.8; O2SAT 98
== END 2023-07-10 14:21 | disposition home or self-care (01) ==
PROVIDERS: Emergency Provider Physician Assistant; Family Provider Internal Medicine; PCP Internal Medicine
DX: K56.41 Fecal impaction (principal)
CPT/HCPCS: 96372; 99283; J1885

== ENCOUNTER 2023-11-29 07:39 | Day surgery (SDC) | payer MEDICARE, SELFPAY ==
[2023-10-12 10:01] VITALS: BMI 33.0
--- NOTE | 2023-11-29 | PATH_ITS ---
[facility] Accession Number: [id number] No. of containers..02 Tissue . 01 Material submitted: . PART A: colon - TRANSVERSE POLYP PART B: colon - ASCENDING POLYP . 01 Diagnosis: A. TRANSVERSE COLON, POLYP: Tubular adenoma. . B. ASCENDING COLON, POLYP: Tubular adenoma. [facility] 12/07/2023 0137 Local . 01 Electronically signed: . Gena Mike MD, Pathologist NPI- [id number] . 01 Gross description: . Part A: TRANSVERSE POLYP: Received in formalin are 2 fragment(s) of [place], soft tissue measuring 0.2 x 0.2 x 0.2 cm to 0.4 x 0.2 x 0.2 cm submitted entirely in 1 cassette(s) Part B: ASCENDING POLYP: Received in formalin is 1 fragment(s) of [place], soft tissue measuring 0.5 x 0.4 x 0.4 cm submitted entirely in 1 cassette(s) /CLAUDY 12/01/2023 1926 Local . 01 Pathologist provided ICD-10: D12.2, D12.3 . 01 CPT . 208610, [id number] Specimen Comment: A courtesy copy of this report has been sent to [phone] Performed at: 01 [facility] [address] [place] [address] [address] [facility], [place], [place] [id number] MD Cortez Leon MD Phone: [phone]
[2023-11-29 07:56] VITALS: BP 165/91; PULSE 75; RESP 16; TEMP 36.3; O2SAT 93
--- NOTE | 2023-11-29 08:02 | P.OP.COLON_ITS ---
Operative Date/Time/Diagnoses Date of procedure: 11/29/23 Time of procedure: 08:02 Pre-op diagnosis: Family history colon cancer Procedure & Clinicians Study performed: Screening colonoscopy Same procedure as scheduled: Yes Indications: Colorectal screening Family history colon cancer Surgeon: Herbert Orantes Procedure Notes Procedure in detail: The history and physical was performed/updated and the patient is ASA class is 2. The procedure was discussed in detail with the patient. Potential risks complications including infection, bleeding, missed diagnosis, perforation, need for surgery, and were explained. Their questions were answered and informed consent was obtained. Patient was brought to the procedure room and placed standard monitoring equipment. The patient's vital signs were monitored continuously throughout the entire procedure. Prior to starting time-out was performed. The patient was placed in the left lateral recumbent position. Procedural sedation was administered by anesthesia. Examination began with a thorough inspection of the perianal area there was no evidence of fissures, fistulae, external hemorrhoids or cutaneous malignancy. The colonoscopy scope was then placed into the anal canal and was advanced to the cecum, which was identified by the ileocecal valve, the appendiceal orifice and the confluence of the taenia. The scope was then slowly withdrawn examining colon thoroughly in all directions, irrigating i t of any residual stool. The scope was retroflexed within the rectum The patient tolerated the procedure well. They will be discharged once criteria are met. The prep was of good/excellent quality. The withdrawl time was 7 minutes. FINDINGS * Post-procedure Disposition: same day surgery
[2023-11-29] MEDS: LACTATED RINGERS 1,000 ML 42 ML IV (08:06)
--- NOTE | 2023-11-29 08:36 | PM.HP.1 ---
History of Present Illness History of Present Illness Date Patient Seen: 11/29/23 Time Patient Seen: 08:36 Chief complaint: SD Narrative: Eugene is 73-year-old male here for screening colonoscopy. Last colonoscopy 3-4 years ago notable for benign polyps. No abdominal concerns today. No family history of intestinal malignancy. ON LICENSE OF [facility] Medical History History of colonic polyps Overweight BPH w urinary obs/LUTS Gout Mixed hyperlipidemia Essential hypertension DM type 2 with diabetic dyslipidemia Incomplete emptying of bladder Chronic prostatitis Nodular prostate Elevated PSA Hx of hyperlipidemia History of BPH Hypertension Family History Father Coronary artery disease Social History household members: spouse Smoking Status: Former smoker alcohol intake: current Meds Home Medications and Allergies Home Medications Medication Instructions Recorded Confirmed Type aspirin 81 mg tablet,delayed 81 mg PO DAILY 09/20/19 09/26/23 History release (Adult Aspirin Regimen) multivitamin 1 tab PO DAILY 09/20/19 09/26/23 History omega-3 fatty acids [Fish Oil 1 cap PO DAILY 09/20/19 09/26/23 History Concentrate] cetirizine 10 mg tablet 10 mg PO DAILY 03/12/20 09/26/23 History magnesium 200 mg tablet 400 mg PO DAILY 03/12/20 09/26/23 History cholecalciferol (vitamin D3) 50 6,000 unit PO DAILY 02/04/22 09/26/23 History mcg (2,000 unit) tablet coenzyme Q10 [Co Q-10] 400 mg PO DAILY 03/21/23 09/26/23 History vitamin B complex 1 cap PO DAILY 03/21/23 09/26/23 History zinc acetate 50 mg PO DAILY 03/21/23 09/26/23 History metoprolol tartrate 50 mg tablet 50 mg PO BID #180 tabs 05/16/23 11/29/23 Rx amlodipine 5 mg tablet 5 mg PO DAILY #90 tabs 06/30/23 11/29/23 Rx losartan 100 mg tablet 100 mg PO DAILY #90 tabs 09/26/23 11/29/23 Rx allopurinol 300 mg tablet 300 mg PO DAILY #90 tabs 10/10/23 Rx terazosin 2 mg capsule 2 mg PO DAILY #90 caps 10/10/23 11/29/23 Rx peg 3350-electrolytes 236 240 ml PO Q10M #4,000 mL 10/24/23 Rx gram-22.74 gram-6.74 gram-5.86 gram solution (Golytely) hydrochlorothiazide 25 mg tablet 25 mg PO DAILY #90 tabs 11/14/23 11/29/23 Rx rosuvastatin 40 mg tablet 40 mg PO DAILY Cholesterol #90 tabs 11/23/23 11/29/23 Rx Allergies Allergy/AdvReac Type Severity Reaction Status Date / Time lisinopril AdvReac Mild Cough Verified 11/29/23 07:53 Exam Vital Signs (past 8 hours): - 11/29/23 07:56 Temperature 97.3 F L Pulse Rate 75 Respiratory Rate 16 Blood Pressure 165/91 H Pulse Oximetry 93 Oxygen Delivery Method Room Air Oxygen Delivery Method Room Air Narrative Exam Narrative: General adult man alert oriented no acute distress Chest nonlabored respiration Extremities warm well perfused Assessment & Plan Assessment & Plan narrative: The patient requires colorectal screening and colonoscopy is recommended. Technical details were discussed. Risks, benefits, alternatives explained. Risks including but not limited to myocardial infarction, aspiration, bleeding, pain, missed lesion, incomplete examination, need for further radiographic studies, intestinal injury, and need for major abdominal surgery were discussed. All questions were answered to their satisfaction, and they are in agreement with this plan.
[2023-11-29 09:27] VITALS: BP 123/70; PULSE 57; RESP 12; TEMP 36.6; O2SAT 93
[2023-11-29 09:32] VITALS: BP 124/68; PULSE 56; RESP 12; O2SAT 92
--- NOTE | 2023-11-29 09:33 | P.OP.COLON_ITS ---
Operative Date/Time/Diagnoses Date of procedure: 11/29/23 Time of procedure: 09:33 Pre-op diagnosis: Colorectal screening Procedure & Clinicians Study performed: Colonoscopy and polypectomy Same procedure as scheduled: Yes Indications: Colorectal screening Personal history of colonic polyps Surgeon: Herbert Orantes Procedure Notes Procedure in detail: The history and physical was performed/updated and the patient is ASA class is 2. The procedure was discussed in detail with the patient. Potential risks complications including infection, bleeding, missed diagnosis, perforation, need for surgery, and were explained. Their questions were answered and inform ed consent was obtained. Patient was brought to the procedure room and placed standard monitoring equipment. The patient's vital signs were monitored continuously throughout the entire procedure. Prior to starting time-out was performed. The patient was placed in the left lateral recumbent position. Procedural sedation was administered by anesthesia. Examination began with a thorough inspection of the perianal area there was no evidence of fissures, fistulae, external hemorrhoids or cutaneous malignancy. The colonoscopy scope was then placed into the anal canal and was advanced to the cecum, which was identified by the ileocecal valve, the appendiceal orifice and the confluence of the taenia. The scope was then slowly withdrawn examining colon thoroughly in all directions, irrigating it of any residual stool. The scope was retroflexed within the rectum The patient tolerated the procedure well. They will be discharged once criteria are met. The prep was of good/excellent quality. The withdrawl time was 10 minutes. FINDINGS * Transverse colon 3 mm polyps x2 removed with biopsy forceps * Ascending colon polyp 3 mm removed with biopsy forceps * Descending colon mild diverticulosis Specimen(s): other (Ascending colon polyp and transverse colonic polyps x2) Impression: Colonic polyp x3 Post-procedure Plan for aftercare: Follow-up is dependent on pathology findings. Likely 3 years Disposition: same day surgery
[2023-11-29 09:37] VITALS: BP 116/78; PULSE 59; RESP 16; TEMP 36.6; O2SAT 92
[2023-11-29 09:42] VITALS: BP 126/85; PULSE 57; RESP 15; O2SAT 93
== END 2023-11-29 09:49 | disposition home or self-care (01) ==
PROVIDERS: PCP Internal Medicine; Referring Provider Surgery; Visit Provider Surgery
PROC: 0DJD8ZZ Inspection of Lower Intestinal Tract, Via Natural or Artificial Opening Endoscopic (ICD-10-PCS; CPT 45378; principal; 2023-11-29 08:30)
DX: Z12.11 Encounter for screening for malignant neoplasm of colon (principal); K57.30 Diverticulosis of large intestine without perforation or abscess without bleeding; D12.3 Benign neoplasm of transverse colon; D12.2 Benign neoplasm of ascending colon
CPT/HCPCS: 45380; J2704

== ENCOUNTER → 2024-01-16 07:50 | Outpatient (CLI) | payer MEDICARE, SELFPAY ==
[2023-10-12 10:01] VITALS: BMI 33.0
[2024-01-17 12:16] LABS: PSA Free % 19.1 % (.); PSA, Total 7.8 ng/mL (0.0-4.0)
== END ==
PROVIDERS: PCP Internal Medicine; Referring Provider Urology; Visit Provider Urology
DX: R97.20 Elevated prostate specific antigen [PSA] (principal)
CPT/HCPCS: 36415; 84153; 84154

== ENCOUNTER → 2024-04-18 09:23 | Outpatient (CLI) | payer MEDICARE, SELFPAY ==
[2023-10-12 10:01] VITALS: BMI 33.0
[2024-04-18 10:18] LABS: Hemoglobin A1C% w Est Avg Glu 5.7 % (4.0-6.0)
== END ==
PROVIDERS: PCP Internal Medicine; Referring Provider Internal Medicine; Visit Provider Internal Medicine
DX: E11.69 Type 2 diabetes mellitus with other specified complication (principal); E78.5 Hyperlipidemia, unspecified
CPT/HCPCS: 36415; 83036

== ENCOUNTER → 2024-08-23 11:18 | Outpatient (CLI) | payer MEDICARE, SELFPAY ==
[2024-08-23 08:39] VITALS: BMI 33.0
[2024-08-23 13:00] LABS: Hemoglobin A1C% w Est Avg Glu 5.8 % (4.0-6.0)
[2024-08-23 13:01] LABS: Aspartate Aminotransferase 37 IU/L (17-59); BUN Creatinine Ratio 17.2 (6-22); Blood Urea Nitrogen 20 mg/dL (9-20); Calcium 9.6 mg/dL (8.4-10.2); Carbon Dioxide 34 mmol/L (22-32); Chloride 101 mmol/L (98-107); Cholesterol 174 mg/dL (140-199); Estimated Glomerular Filt Rate > 60 mL/min (>60); Glucose 110 mg/dL (80-110); HDL Cholesterol 34 mg/dL (40-60); HEMOLYSIS 19 (0-50); LDL Cholesterol Calculated 68 mg/dL (<100); Potassium 3.9 mmol/L (3.4-5.1); Sodium 141 mmol/L (137-145); Triglycerides 359 mg/dL (35-150)
[2024-08-23 15:34] LABS: Microalbumin Urine Random 1.2 mg/dL (0-1.6)
[2024-08-23 16:24] LABS: Creatinine Urine Random 89.03 mg/dL
[2024-08-24 15:36] LABS: PSA Free % 20.9 % (.)
== END ==
PROVIDERS: Urology; PCP Internal Medicine; Referring Provider Internal Medicine; Visit Provider Internal Medicine
DX: E11.69 Type 2 diabetes mellitus with other specified complication (principal); E78.5 Hyperlipidemia, unspecified; I10 Essential (primary) hypertension; E78.2 Mixed hyperlipidemia; R97.20 Elevated prostate specific antigen [PSA]
CPT/HCPCS: 36415; 80048; 80061; 82043; 82570; 83036; 84153; 84154; 84450

== ENCOUNTER → 2024-09-25 11:31 | Outpatient (CLI) | payer MEDICARE, SELFPAY ==
[2024-08-23 08:39] VITALS: BMI 33.0
[2024-09-27 07:07] LABS: PSA Free % 20.9 % (.)
== END ==
PROVIDERS: PCP Internal Medicine; Referring Provider Urology; Visit Provider Urology
DX: R97.20 Elevated prostate specific antigen [PSA] (principal)
CPT/HCPCS: 36415; 84153; 84154

== ENCOUNTER → 2024-10-17 08:05 | Outpatient (CLI) | payer MEDICARE, SELFPAY ==
[2024-08-23 08:39] VITALS: BMI 33.0
--- NOTE | 2024-10-17 08:06 | DI.MRI.S_ITS ---
PROCEDURE: MR PELVIC PROSTATE PROTOCOL INDICATIONS: Elevated and rising PSA TECHNIQUE: Coronal HASTE, axial T1 FSE with fat saturation, 3-plane nonbreath-hold T2 FSE. After the administration of contrast, dynamic axial, delayed axial and coronal VIBE or 2-D FLASH with fat saturation through the pelvis. Diffusion weighted imaging and ADC was performed. COMPARISON: [facility], MR, MR PELVIS WO/W CON, 12/02/2021, 11:34. FINDINGS: Image quality: Diffusion weighted and dynamic contrast enhanced images are diagnostic. Prostate: Gland size is 8.3 x 7.9 x 6.3 cm; ellipsoid gland volume is 215 mL. Numerous BPH nodules. No significant intrinsic T1 hyperintense foci to suggest hemorrhage. No significant areas of ADC hypointensity in the peripheral zone. No suspicious foci of the T2 hypointense signal in the transitional zone. No PI-RADS 4 or 5 observations. No significant interval change. Right lateral transitional zone near the apex is unchanged. Left posteromedial peripheral zone at the base is unchanged. Genitourinary system: Bladder wall thickness is normal. Distal ureters are non distended. Bowel and peritoneum: No pathologic free pelvic fluid. Inferior colon and small bowel loops are normal in caliber. Nodes and vessels: No pelvic or inguinal adenopathy by size criteria. 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 -Right common iliac artery aneurysmal dilatation measuring 2.3 cm, (), similar. Soft tissues: No inguinal hernias. Bones: Marrow demonstrates normal overall signal, without lesions to suggest metastases. IMPRESSION: 1. Marked prostatomegaly. Numerous BPH nodules. 2. No PI-RADS 4 or 5 observations. No significant interval change. No enlarged lymph nodes. 3. Left common iliac artery aneurysm measuring approximately 2.9 cm is unchanged. Right common iliac artery aneurysmal dilatation. -This could be further evaluation with CTA abdomen and pelvis. Dictated by: Rodrigo Barnes M.D. on 10/18/2024 at 16:32 Approved by: Rodrigo Barnes M.D. on 10/18/2024 at 16:51
== END ==
PROVIDERS: PCP Internal Medicine; Referring Provider Urology; Visit Provider Urology
DX: N40.2 Nodular prostate without lower urinary tract symptoms (principal); I72.3 Aneurysm of iliac artery; R97.20 Elevated prostate specific antigen [PSA]
CPT/HCPCS: 72197; A9579

== ENCOUNTER → 2025-03-20 13:58 | Outpatient (CLI) | payer MEDICARE, SELFPAY ==
[2024-08-23 08:39] VITALS: BMI 33.0
[2025-03-20 14:32] LABS: Hemoglobin A1C% w Est Avg Glu 5.8 % (4.0-6.0)
[2025-03-20 15:09] LABS: Blood Urea Nitrogen 21 mg/dL (9-20); Calcium 9.6 mg/dL (8.4-10.2); Carbon Dioxide 27 mmol/L (22-32); Chloride 104 mmol/L (98-107); Estimated Glomerular Filt Rate > 60 mL/min (>60); Glucose 107 mg/dL (70-99); HEMOLYSIS < 15 (0-50); Potassium 3.7 mmol/L (3.4-5.1); Sodium 141 mmol/L (137-145)
== END ==
PROVIDERS: PCP Internal Medicine; Referring Provider Internal Medicine; Visit Provider Internal Medicine
DX: E11.69 Type 2 diabetes mellitus with other specified complication (principal); E78.5 Hyperlipidemia, unspecified
CPT/HCPCS: 36415; 80048; 83036

== ENCOUNTER → 2025-04-24 07:58 | Outpatient (CLI) | payer MEDICARE, SELFPAY ==
[2024-08-23 08:39] VITALS: BMI 33.0
--- NOTE | 2025-04-24 07:58 | DI.RAD.S_ITS ---
PROCEDURE: ESOPHOGRAM W/AIR INDICATIONS: dysphagia COMPARISON: None. FINDINGS: Function: There is normal esophageal peristalsis. No elicited gastroesophageal reflux. Normal emptying of the tubular esophagus. Morphology: Air-contrast images demonstrate normal mucosal morphology. Single contrast views show no esophageal strictures, extrinsic mass effects, or diverticula. Limited images of the stomach demonstrate normal appearance. Normal vestibule. IMPRESSION: Normal esophagram. Dictated by: Murray Ku M.D. on 04/24/2025 at 11:53 Approved by: Murray Ku M.D. on 04/24/2025 at 12:04
== END ==
LOC: RAD 07:58
PROVIDERS: PCP Internal Medicine; Referring Provider Internal Medicine; Visit Provider Internal Medicine
DX: R13.10 Dysphagia, unspecified (principal)
CPT/HCPCS: 74220